=== PATIENT | male | born 1950 | race Caucasian/White ===

== ENCOUNTER 2016-12-25 17:59 | Inpatient (IN) ==
[2016-12-25] MEDS ORDERED: Ipratropium/Albuterol Neb 3 ML IH ONE (18:05)
[2016-12-25] MEDS ORDERED: methylPREDNISolone 125 MG/2 ML VIAL IVP ONE (18:05)
--- NOTE | 2016-12-25 18:09 | Emergency Department Note ---
Disposition Clinical Impression: SOCORRO (acute kidney injury), Hyperkalemia, COPD exacerbation Disposition: Admitted As Inpatient Condition: Fair General Adult HPI - General Chief complaint: ED Altered Mental Status Stated complaint: Altered mental status Time Seen by Provider: 12/25/16 18:05 Source: patient, EMS Limitations: no limitations Nursing Notes Reviewed: Yes Vital Signs Reviewed: Yes - History of Present Illness HPI Narrative: 66-year-old male who has a history COPD his states that he has been confused today which has gotten progressively worse. Patient's states he does have a history of previous CO2 retention. On arrival he does answer questions but is obviously short of breath with a pulse ox of 79 range. Patient is oxygen dependent on 2 L at home. Pt Subjective Complaint: Confusion and shortness of breath Onset (ago): hour(s) (12) Location: other (Generalized) Pain Scale: 10 Quality: aching Consistency: constant Improves with: nothing Worsens with: nothing Associated symptoms: Reports: confusion, shortness of breath - Related Data Home Medications Medication Instructions Recorded Confirmed Albuterol Sulfate [Albuterol 2 mcg IH Q4HR PRN 08/16/15 12/25/16 Inhaler] Aspirin Enteric Coated [Aspirin EC] 81 mg PO DAILY 08/16/15 12/25/16 Atorvastatin [Lipitor] 40 mg PO DAILY 08/16/15 12/25/16 Cinnamon Bark [Cinnamon] 2,000 mg PO DAILY 08/16/15 12/25/16 Cyclosporine [Restasis] 1 each BOTH EYES BID 08/16/15 12/25/16 Fluticasone Propionate Nasal 1 spray NS DAILY 08/16/15 12/25/16 [Flonase] Furosemide [Lasix] 40 mg PO DAILY 08/16/15 12/25/16 Lisinopril [Zestril] 5 mg PO DAILY 08/16/15 12/25/16 Williams-3S/Dha/Epa/Fish Oil [Fish 1 each PO BID 08/16/15 12/25/16 Oil 1,200 mg Softgel] Ipratropium/Albuterol Neb [Duoneb] 3 ml IH Q6HR PRN 04/04/16 12/25/16 Budesonide/Formoterol 160/4.5 2 puff IH BIDR 11/15/16 12/25/16 [Symbicort 160/4.5] Fluticasone/Vilanterol [Breo 1 each IH DAILY 11/15/16 12/25/16 Ellipta 100-25 Mcg INH] Gabapentin [Neurontin] 800 mg PO TID 11/15/16 12/25/16 Metformin HCl [Glucophage] 1,000 mg PO BID 11/15/16 12/25/16 Pregabalin [Lyrica] 75 mg PO BID 11/15/16 12/25/16 Insulin Glargine,Hum.rec.anlog 62 unit SQ BID 12/25/16 12/25/16 [Lantus Solostar] Liraglutide [Victoza 2-Mychal] 1.2 mg SQ DAILY 12/25/16 12/25/16 Metolazone [Zaroxolyn] 5 mg PO DAILY 12/25/16 12/25/16 Allergies Allergy/AdvReac Type Severity Reaction Status Date / Time insulin detemir AdvReac Gastrointestinal Verified 12/25/16 23:03 [From Levemir] Upset sitagliptin [From Januvia] AdvReac Gastrointestinal Verified 12/15/16 10:05 Upset All systems ED: reviewed and negative except as stated. Constitutional: Denies: fever, chills, weakness, weight change Eyes: Denies: eye pain, eye discharge, vision change ENT ED: Denies: ear pain, throat pain, dental pain, hearing loss, epistaxis, congestion, dysphagia Cardiovascular: Denies: chest pain, palpitations, dyspnea on exertion, edema, syncope Respiratory: Reports: dyspnea. Denies: cough, wheezes, hemoptysis, stridor Gastrointestinal: Denies: abdominal pain, nausea, vomiting, diarrhea, constipation, hematemesis, melena, hematochezia Genitourinary: Denies: urgency, dysuria, frequency, hematuria Musculoskeletal: Denies: back pain, neck pain, arthralgia, myalgia Integumentary: Denies: rash, abrasion, lesions Neurological: Reports: confusion. Denies: headache, weakness, numbness, paresthesias, abnormal gait, vertigo Psychiatric: Denies: anxiety, depression, suicidal thoughts, homicidal thoughts , auditory hallucinations, visual hallucinations Endocrine: Denies: fatigue Hematological/Lymphatic: Denies: easy bleeding, easy bruising Allergic/Immunologic: Denies: facial swelling, urticaria Past Medical History - Past Medical History Medical history: Reports: CHF, COPD, diabetes, hyperlipidemia, hypertension, renal disease Surgical history: Reports: cholecystectomy, herniorrhaphy Psychiatric history: Reports: no psych history - Social History Smoking Status: Current every day smoker Smokeless Tobacco Status: No Alcohol use: Reports: none Drug use: Reports: none Physical Exam - General Limitations: no limitations General appearance: alert, in no apparent distress - Head Head exam: atraumatic, normocephalic, normal inspection - Eye Eye exam: Present: normal appearance, PERRL, EOMI - ENT ENT exam: normal exam, normal oropharynx, mucous membranes moist - Neck Neck exam: Present: normal inspection, full ROM, trachea midline - Chest Chest inspection: Present: normal inspection, symmetric chest wall rise - Respiratory Respiratory exam: Present: respiratory distress, wheezes - Cardiovascular Cardiovascular exam: Present: regular rate, normal rhythm, normal heart sounds - Abdominal Exam Abdominal exam: Present: soft, Non-Tender. Absent: tenderness, distention, guarding, rebound, rigidity - Extremities Exam Extremities exam: Present: normal inspection, full ROM. Absent: tenderness, pedal edema - Expanded Lower Extremity Exam Neurovascular/Tendon exam: Absent: motor deficit, sensory deficit, tendon deficit Gait: not tested/not observed - Back Exam Back exam: Present: normal inspection - Neurological Exam Neurological exam: Present: other (Does respond to verbal stimuli) Course Vital Signs Temperature 98.9 F 12/25/16 18:03 Pulse Rate 106 12/25/16 18:03 Respiratory Rate 20 12/25/16 18:03 Blood Pressure 143/83 12/25/16 18:03 O2 Sat by Pulse Oximetry 92 12/25/16 18:03 Temperature 98.2 F 12/27/16 07:34 Pulse Rate 91 12/27/16 08:00 Respiratory Rate 16 12/27/16 07:34 Blood Pressure 138/67 12/27/16 07:34 O2 Sat by Pulse Oximetry 95 12/27/16 07:34 Oxygen Delivery Oxygen Delivery Room Air Medical Decision Making - Lab Data Result diagrams: 12/26/16 04:33 12/27/16 06:18 Lab Results 12/25/16 12/25/16 12/25/16 Range/Units 18:14 18:34 18:34 WBC 8.6 (4.3-11.1) K/mcL RBC 4.88 (4.19-5.50) M/mcL Hgb 14.4 (12.9-16.9) g/dL Hct 45.6 (37.5-50.1) % MCV 93.4 (83.0-100.0) fL MCH 29.5 (28.0-33.3) pg MCHC 31.6 (31.6-35.5) g/dL RDW 15.3 H (11.5-14.5) % Plt Count 225 (140-400) K/mcL MPV 9.0 L (9.4-12.4) fL Immature Gran % 0.9 (0-4) % Seg Neutrophils % 73.6 % Lymphocytes % 14.0 % Monocytes % 11.0 % Eosinophils % 0.2 % Basophils % 0.3 % Neutrophils # 6.3 (1.6-8.9) K/mcL Lymphocytes # 1.2 (0.6-4.6) K/mcL Monocytes # 1.0 (0.0-1.3) K/mcL Eosinophils # 0.0 (0.0-0.6) K/mcL Basophils # 0.0 (0.0-0.2) K/mcL PT (9.4-12.1) Seconds INR APTT (26.0-36.0) Seconds ABG pH 7.25 L (7.32-7.45) pH Units ABG pCO2 60 H (35-45) mmHg ABG pO2 64 L (85-104) mmHg ABG HCO3 26.3 (21-27) mEQ/L ABG Total CO2 28.1 H (20-26) mEq/L ABG O2 Saturation 88 L (95-98) % ABG Base Excess -2.2 L (-2.0 to 3.0) mEq/L Carboxyhemoglobin 6.5 H (0-5) % Blood Gas Modality NC Inspired O2 36 % Sodium 135 L (136-145) mEq/L Potassium 6.4 H (3.5-4.5) mEq/L Chloride 103 (98-109) mEq/L Carbon Dioxide 27 (19-29) mEq/L BUN 31 H (8-26) mg/dL Creatinine 1.45 H (0.72-1.25) mg/dL Est GFR ( Amer) 59 L (> 60) Est GFR (Non-Af Amer) 49 L (> 60) BUN/Creatinine Ratio 21 (6-26) Glucose 89 (70-99) mg/dL POC Glucose (58-89) Calculated Osmolality 286 (280-300) Lactic Acid (0.5-2.2) mmol/L Calcium 10.1 (8.6-10.8) mg/dL Total Bilirubin 0.4 (0.2-1.2) mg/dL Direct Bilirubin 0.2 (0.0-0.5) mg/dL Indirect Bilirubin 0.2 (0.0-1.2) mg/dL AST 25 (5-34) Units/L ALT 20 (0-55) Units/L Alkaline Phosphatase 87 (38-126) Units/L Troponin I (0-0.03) ng/mL B-Natriuretic Peptide (0-100) pg/mL Serum Total Protein 7.4 (6.0-8.3) g/dL Albumin 3.9 (3.5-5.0) g/dL Globulin 3.5 (2.4-3.5) g/dL Albumin/Globulin Ratio 1.1 (1.1-2.2) 12/25/16 12/25/16 12/25/16 Range/Units 18:34 18:34 18:34 WBC (4.3-11.1) K/mcL RBC (4.19-5.50) M/mcL Hgb (12.9-16.9) g/dL Hct (37.5-50.1) % MCV (83.0-100.0) fL MCH (28.0-33.3) pg MCHC (31.6-35.5) g/dL RDW (11.5-14.5) % Plt Count (140-400) K/mcL MPV (9.4-12.4) fL Immature Gran % (0-4) % Seg Neutrophils % % Lymphocytes % % Monocytes % % Eosinophils % % Basophils % % Neutrophils # (1.6-8.9) K/mcL Lymphocytes # (0.6-4.6) K/mcL Monocytes # (0.0-1.3) K/mcL Eosinophils # (0.0-0.6) K/mcL Basophils # (0.0-0.2) K/mcL PT (9.4-12.1) Seconds INR APTT (26.0-36.0) Seconds ABG pH (7.32-7.45) pH Units ABG pCO2 (35-45) mmHg ABG pO2 (85-104) mmHg ABG HCO3 (21-27) mEQ/L ABG Total CO2 (20-26) mEq/L ABG O2 Saturation (95-98) % ABG Base Excess (-2.0 to 3.0) mEq/L Carboxyhemoglobin (0-5) % Blood Gas Modality Inspired O2 % Sodium (136-145) mEq/L Potassium (3.5-4.5) mEq/L Chloride (98-109) mEq/L Carbon Dioxide (19-29) mEq/L BUN (8-26) mg/dL Creatinine (0.72-1.25) mg/dL Est GFR ( Amer) (> 60) Est GFR (Non-Af Amer) (> 60) BUN/Creatinine Ratio (6-26) Glucose (70-99) mg/dL POC Glucose (58-89) Calculated Osmolality (280-300) Lactic Acid 0.8 (0.5-2.2) mmol/L Calcium (8.6-10.8) mg/dL Total Bilirubin (0.2-1.2) mg/dL Direct Bilirubin (0.0-0.5) mg/dL Indirect Bilirubin (0.0-1.2) mg/dL AST (5-34) Units/L ALT (0-55) Units/L Alkaline Phosphatase (38-126) Units/L Troponin I 0.01 (0-0.03) ng/mL B-Natriuretic Peptide 32 (0-100) pg/mL Serum Total Protein (6.0-8.3) g/dL Albumin (3.5-5.0) g/dL Globulin (2.4-3.5) g/dL Albumin/Globulin Ratio (1.1-2.2) 12/25/16 12/25/16 12/25/16 Range/Units 18:34 21:55 22:51 WBC (4.3-11.1) K/mcL RBC (4.19-5.50) M/mcL Hgb (12.9-16.9) g/dL Hct (37.5-50.1) % MCV (83.0-100.0) fL MCH (28.0-33.3) pg MCHC (31.6-35.5) g/dL RDW (11.5-14.5) % Plt Count (140-400) K/mcL MPV (9.4-12.4) fL Immature Gran % (0-4) % Seg Neutrophils % % Lymphocytes % % Monocytes % % Eosinophils % % Basophils % % Neutrophils # (1.6-8.9) K/mcL Lymphocytes # (0.6-4.6) K/mcL Monocytes # (0.0-1.3) K/mcL Eosinophils # (0.0-0.6) K/mcL Basophils # (0.0-0.2) K/mcL PT 11.4 (9.4-12.1) Seconds INR 1.1 APTT 43.4 H (26.0-36.0) Seconds ABG pH 7.26 L (7.32-7.45) pH Units ABG pCO2 64 H (35-45) mmHg ABG pO2 57 L (85-104) mmHg ABG HCO3 28.7 H (21-27) mEQ/L ABG Total CO2 30.7 H (20-26) mEq/L ABG O2 Saturation 84 L (95-98) % ABG Base Excess -0.3 (-2.0 to 3.0) mEq/L Carboxyhemoglobin (0-5) % Blood Gas Modality BIPAP Inspired O2 35 % Sodium (136-145) mEq/L Potassium (3.5-4.5) mEq/L Chloride (98-109) mEq/L Carbon Dioxide (19-29) mEq/L BUN (8-26) mg/dL Creatinine (0.72-1.25) mg/dL Est GFR ( Amer) (> 60) Est GFR (Non-Af Amer) (> 60) BUN/Creatinine Ratio (6-26) Glucose (70-99) mg/dL POC Glucose 125 H (58-89) Calculated Osmolality (280-300) Lactic Acid (0.5-2.2) mmol/L Calcium (8.6-10.8) mg/dL Total Bilirubin (0.2-1.2) mg/dL Direct Bilirubin (0.0-0.5) mg/dL Indirect Bilirubin (0.0-1.2) mg/dL AST (5-34) Units/L ALT (0-55) Units/L Alkaline Phosphatase (38-126) Units/L Troponin I (0-0.03) ng/mL B-Natriuretic Peptide (0-100) pg/mL Serum Total Protein (6.0-8.3) g/dL Albumin (3.5-5.0) g/dL Globulin (2.4-3.5) g/dL Albumin/Globulin Ratio (1.1-2.2) 12/25/16 12/26/16 Range/Units 23:47 00:46 WBC (4.3-11.1) K/mcL RBC (4.19-5.50) M/mcL Hgb (12.9-16.9) g/dL Hct (37.5-50.1) % MCV (83.0-100.0) fL MCH (28.0-33.3) pg MCHC (31.6-35.5) g/dL RDW (11.5-14.5) % Plt Count (140-400) K/mcL MPV (9.4-12.4) fL Immature Gran % (0-4) % Seg Neutrophils % % Lymphocytes % % Monocytes % % Eosinophils % % Basophils % % Neutrophils # (1.6-8.9) K/mcL Lymphocytes # (0.6-4.6) K/mcL Monocytes # (0.0-1.3) K/mcL Eosinophils # (0.0-0.6) K/mcL Basophils # (0.0-0.2) K/mcL PT (9.4-12.1) Seconds INR APTT (26.0-36.0) Seconds ABG pH (7.32-7.45) pH Units ABG pCO2 (35-45) mmHg ABG pO2 (85-104) mmHg ABG HCO3 (21-27) mEQ/L ABG Total CO2 (20-26) mEq/L ABG O2 Saturation (95-98) % ABG Base Excess (-2.0 to 3.0) mEq/L Carboxyhemoglobin (0-5) % Blood Gas Modality Inspired O2 % Sodium 137 (136-145) mEq/L Potassium 6.0 H (3.5-4.5) mEq/L Chloride 104 (98-109) mEq/L Carbon Dioxide 24 (19-29) mEq/L BUN 32 H (8-26) mg/dL Creatinine 1.40 H (0.72-1.25) mg/dL Est GFR ( Amer) > 60 (> 60) Est GFR (Non-Af Amer) 51 L (> 60) BUN/Creatinine Ratio 23 (6-26) Glucose 170 H (70-99) mg/dL POC Glucose 203 H (58-89) Calculated Osmolality 295 (280-300) Lactic Acid (0.5-2.2) mmol/L Calcium 9.7 (8.6-10.8) mg/dL Total Bilirubin (0.2-1.2) mg/dL Direct Bilirubin (0.0-0.5) mg/dL Indirect Bilirubin (0.0-1.2) mg/dL AST (5-34) Units/L ALT (0-55) Units/L Alkaline Phosphatase (38-126) Units/L Troponin I (0-0.03) ng/mL B-Natriuretic Peptide (0-100) pg/mL Serum Total Protein (6.0-8.3) g/dL Albumin (3.5-5.0) g/dL Globulin (2.4-3.5) g/dL Albumin/Globulin Ratio (1.1-2.2) - EKG Data EKG #1 EKG shows normal: sinus rhythm Rate: normal Rhythm: NSR Interpretation: no acute changes
[2016-12-25 18:27] LABS: ABG Base Excess -2.2 mEq/L (-2.0 to 3.0); ABG HCO3 26.3 mEQ/L (21-27); ABG Oxygen Saturation 88 % (95-98); ABG PCO2 60 mmHg (35-45); ABG PH 7.25 pH Units (7.32-7.45); ABG PO2 64 mmHg (85-104); ABG TCO2 28.1 mEq/L (20-26); Carboxyhemoglobin 6.5 % (0-5)
[2016-12-25 18:28] LABS: Blood Gas FiO2 36 %
[2016-12-25 18:43] LABS: Basophils % 0.3 %; Eosinophils % 0.2 %; Hematocrit 45.6 % (37.5-50.1); Hemoglobin 14.4 g/dL (12.9-16.9); Immature Granulocytes % 0.9 % (0-4); Lymphocytes # 1.2 K/mcL (0.6-4.6); Mean Corpuscular HGB Conc 31.6 g/dL (31.6-35.5); Mean Corpuscular Hemoglobin 29.5 pg (28.0-33.3); Mean Corpuscular Volume 93.4 fL (83.0-100.0); Neutrophils # 6.3 K/mcL (1.6-8.9); Platelet Count 225 K/mcL (140-400); Red Blood Count 4.88 M/mcL (4.19-5.50); Red Cell Distribution Width 15.3 % (11.5-14.5); Segmented Neutrophils % 73.6 %
[2016-12-25 18:50] LABS: INR 1.1; Prothrombin Time 11.4 Seconds (9.4-12.1)
[2016-12-25 18:53] LABS: Activated Partial Thrombo Time 43.4 Seconds (26.0-36.0)
[2016-12-25 18:58] LABS: Potassium 6.4 mEq/L (3.5-4.5)
[2016-12-25 18:59] LABS: Albumin 3.9 g/dL (3.5-5.0); Albumin/Globulin Ratio 1.1 (1.1-2.2); Bilirubin,Direct 0.2 mg/dL (0.0-0.5); Bilirubin,Indirect 0.2 mg/dL (0.0-1.2); Bilirubin,Total 0.4 mg/dL (0.2-1.2); Calcium 10.1 mg/dL (8.6-10.8); Globulin 3.5 g/dL (2.4-3.5); Total Protein 7.4 g/dL (6.0-8.3)
[2016-12-25] MEDS ORDERED: Calcium Gluconate 1,000 MG in D5% in Water 100 ML IVPB ONE (19:12)
--- NOTE | 2016-12-25 20:32 | Emergency Department Note ---
Disposition Clinical Impression: SOCORRO (acute kidney injury), Hyperkalemia, COPD exacerbation Disposition: Admitted As Inpatient Condition: Fair Time of Disposition: 20:47 Altered Mental Status HPI - General Chief Complaint: ED Altered Mental Status Stated Complaint: Altered mental status Time Seen by Provider: 12/25/16 18:05 Source: patient, EMS Limitations: no limitations Nursing Notes Reviewed: Yes Vital Signs Reviewed: Yes - Related Data Home Medications Medication Instructions Recorded Confirmed Albuterol Sulfate [Albuterol 2 mcg IH Q4HR PRN 08/16/15 12/25/16 Inhaler] Aspirin Enteric Coated [Aspirin EC] 81 mg PO DAILY 08/16/15 12/25/16 Atorvastatin [Lipitor] 40 mg PO DAILY 08/16/15 12/25/16 Cinnamon Bark [Cinnamon] 2,000 mg PO DAILY 08/16/15 12/25/16 Cyclosporine [Restasis] 1 each BOTH EYES BID 08/16/15 12/25/16 Fluticasone Propionate Nasal 1 spray NS DAILY 08/16/15 12/25/16 [Flonase] Furosemide [Lasix] 40 mg PO DAILY 08/16/15 12/25/16 Lisinopril [Zestril] 5 mg PO DAILY 08/16/15 12/25/16 [place]-3S/Dha/Epa/Fish Oil [Fish 1 each PO BID 08/16/15 12/25/16 Oil 1,200 mg Softgel] Ipratropium/Albuterol Neb [Duoneb] 3 ml IH Q6HR PRN 04/04/16 12/25/16 Budesonide/Formoterol 160/4.5 2 puff IH BIDR 11/15/16 12/25/16 [Symbicort 160/4.5] Fluticasone/Vilanterol [Breo 1 each IH DAILY 11/15/16 12/25/16 Ellipta 100-25 Mcg INH] Gabapentin [Neurontin] 800 mg PO TID 11/15/16 12/25/16 Metformin HCl [Glucophage] 1,000 mg PO BID 11/15/16 12/25/16 Pregabalin [Lyrica] 75 mg PO BID 11/15/16 12/25/16 Insulin Glargine,Hum.rec.anlog 62 unit SQ BID 12/25/16 12/25/16 [Lantus Solostar] Liraglutide [Victoza 2-Mychal] 1.2 mg SQ DAILY 12/25/16 12/25/16 Metolazone [Zaroxolyn] 5 mg PO DAILY 12/25/16 12/25/16 Allergies Allergy/AdvReac Type Severity Reaction Status Date / Time sitagliptin [From ] AdvReac Gastrointestinal Verified 12/15/16 10:05 Upset Constitutional: Denies: fever, chills, weakness, weight change Eyes: Denies: eye pain, eye discharge, vision change ENT ED: Denies: ear pain, throat pain, dental pain, hearing loss, epistaxis, congestion, dysphagia Cardiovascular: Denies: chest pain, palpitations, dyspnea on exertion, edema, syncope Respiratory: Reports: dyspnea. Denies: cough, wheezes, hemoptysis, stridor Gastrointestinal: Denies: abdominal pain, nausea, vomiting, diarrhea, constipation, hematemesis, melena, hematochezia Genitourinary: Denies: urgency, dysuria, frequency, hematuria Musculoskeletal: Denies: back pain, neck pain, arthralgia, myalgia Integumentary: Denies: rash, abrasion, lesions Neurological: Reports: confusion. Denies: headache, weakness, numbness, paresthesias, abnormal gait, vertigo Psychiatric: Denies: anxiety, depression, suicidal thoughts, homicidal thoughts , auditory hallucinations, visual hallucinations Endocrine: Denies: fatigue Hematological/Lymphatic: Denies: easy bleeding, easy bruising Allergic/Immunologic: Denies: facial swelling, urticaria Past Medical History - Past Medical History Medical history: Reports: CHF, COPD, diabetes, hyperlipidemia, hypertension, renal disease Surgical history: Reports: cholecystectomy, herniorrhaphy Psychiatric history: Reports: no psych history - Social History Smoking Status: Current every day smoker Smokeless Tobacco Status: No Alcohol use: Reports: none Drug use: Reports: none Physical Exam - General Limitations: no limitations General appearance: alert, in no apparent distress Course Course Narrative: Patient is a signout from the day physician, Dr. Richey. Please see his note for any additional details. In summary, patient has a past medical history of COPD. He has had 2 elevations in the past. He presented today due to shortness of breath and wheezing, hypoxic on presentation. Patient had a workup that showed hyperkalemia and SOCORRO. Negative chest x-ray, negative trop, EKG showed NSR no acute ST elevations or depressions. Patient had an ABG that showed a pH of 7.25, CO2 of 60. He was placed on BiPAP for shortness of breath, given Solu-Medrol and duonebs. He is still symptomatically short of breath. Patient will be admitted to the hospital for COPD exacerbation requiring BiPAP, hyperkalemia (given calcium gluconate and kayexalate), and SOCORRO. states that he is still full code, would want him intubated and CPR if he were to decompensate. Vital Signs Temperature 98.9 F 12/25/16 18:03 Pulse Rate 106 12/25/16 18:03 Respiratory Rate 20 12/25/16 18:03 Blood Pressure 143/83 12/25/16 18:03 O2 Sat by Pulse Oximetry 92 12/25/16 18:03 Temperature 98.9 F 12/25/16 18:03 Pulse Rate 95 12/25/16 20:35 Respiratory Rate 23 12/25/16 20:35 Blood Pressure 156/69 12/25/16 20:35 O2 Sat by Pulse Oximetry 92 12/25/16 20:35 Oxygen Delivery Oxygen Delivery Bipap Altered Mental Status - MDM Narrative Medical decision making narrative: Patient is a signout from the day physician, Dr. Richey. Please see his note for any additional details. In summary, patient has a past medical history of COPD. He has had 2 elevations in the past. He presented today due to shortness of breath and wheezing, hypoxic on presentation. Patient had a workup that showed hyperkalemia and SOCORRO. Negative chest x-ray, negative trop, EKG showed NSR no acute ST elevations or depressions. Patient had an ABG that showed a pH of 7.25, CO2 of 60. He was placed on BiPAP for shortness of breath, given Solu-Medrol and duonebs. He is still symptomatically short of breath. Patient will be admitted to the hospital for COPD exacerbation requiring BiPAP, hyperkalemia (given calcium gluconate and kayexalate), and SOCORRO. states that he is still full code, would want him intubated and CPR if he were to decompensate. - Medical Records Medical records reviewed: Yes I reviewed the patient's medical records. - Lab Data Lab results reviewed: Yes I reviewed the patient's lab results. Result diagrams: 12/25/16 18:34 12/25/16 18:34 Lab Results 12/25/16 12/25/16 12/25/16 Range/Units 18:14 18:34 18:34 WBC 8.6 (4.3-11.1) K/mcL RBC 4.88 (4.19-5.50) M/mcL Hgb 14.4 (12.9-16.9) g/dL Hct 45.6 (37.5-50.1) % MCV 93.4 (83.0-100.0) fL MCH 29.5 (28.0-33.3) pg MCHC 31.6 (31.6-35.5) g/dL RDW 15.3 H (11.5-14.5) % Plt Count 225 (140-400) K/mcL MPV 9.0 L (9.4-12.4) fL Immature Gran % 0.9 (0-4) % Seg Neutrophils % 73.6 % Lymphocytes % 14.0 % Monocytes % 11.0 % Eosinophils % 0.2 % Basophils % 0.3 % Neutrophils # 6.3 (1.6-8.9) K/mcL Lymphocytes # 1.2 (0.6-4.6) K/mcL Monocytes # 1.0 (0.0-1.3) K/mcL Eosinophils # 0.0 (0.0-0.6) K/mcL Basophils # 0.0 (0.0-0.2) K/mcL PT (9.4-12.1) Seconds INR APTT (26.0-36.0) Seconds ABG pH 7.25 L (7.32-7.45) pH Units ABG pCO2 60 H (35-45) mmHg ABG pO2 64 L (85-104) mmHg ABG HCO3 26.3 (21-27) mEQ/L ABG Total CO2 28.1 H (20-26) mEq/L ABG O2 Saturation 88 L (95-98) % ABG Base Excess -2.2 L (-2.0 to 3.0) mEq/L Carboxyhemoglobin 6.5 H (0-5) % Blood Gas Modality [place] Inspired O2 36 % Sodium 135 L (136-145) mEq/L Potassium 6.4 H (3.5-4.5) mEq/L Chloride 103 (98-109) mEq/L Carbon Dioxide 27 (19-29) mEq/L BUN 31 H (8-26) mg/dL Creatinine 1.45 H (0.72-1.25) mg/dL Est GFR ( Amer) 59 L (> 60) Est GFR (Non-Af Amer) 49 L (> 60) BUN/Creatinine Ratio 21 (6-26) Glucose 89 (70-99) mg/dL Calculated Osmolality 286 (280-300) Lactic Acid (0.5-2.2) mmol/L Calcium 10.1 (8.6-10.8) mg/dL Total Bilirubin 0.4 (0.2-1.2) mg/dL Direct Bilirubin 0.2 (0.0-0.5) mg/dL Indirect Bilirubin 0.2 (0.0-1.2) mg/dL AST 25 (5-34) Units/L ALT 20 (0-55) Units/L Alkaline Phosphatase 87 (38-126) Units/L Troponin I (0-0.03) ng/mL B-Natriuretic Peptide (0-100) pg/mL Serum Total Protein 7.4 (6.0-8.3) g/dL Albumin 3.9 (3.5-5.0) g/dL Globulin 3.5 (2.4-3.5) g/dL Albumin/Globulin Ratio 1.1 (1.1-2.2) 12/25/16 12/25/16 12/25/16 Range/Units 18:34 18:34 18:34 WBC (4.3-11.1) K/mcL RBC (4.19-5.50) M/mcL Hgb (12.9-16.9) g/dL Hct (37.5-50.1) % MCV (83.0-100.0) fL MCH (28.0-33.3) pg MCHC (31.6-35.5) g/dL RDW (11.5-14.5) % Plt Count (140-400) K/mcL MPV (9.4-12.4) fL Immature Gran % (0-4) % Seg Neutrophils % % Lymphocytes % % Monocytes % % Eosinophils % % Basophils % % Neutrophils # (1.6-8.9) K/mcL Lymphocytes # (0.6-4.6) K/mcL Monocytes # (0.0-1.3) K/mcL Eosinophils # (0.0-0.6) K/mcL Basophils # (0.0-0.2) K/mcL PT (9.4-12.1) Seconds INR APTT (26.0-36.0) Seconds ABG pH (7.32-7.45) pH Units ABG pCO2 (35-45) mmHg ABG pO2 (85-104) mmHg ABG HCO3 (21-27) mEQ/L ABG Total CO2 (20-26) mEq/L ABG O2 Saturation (95-98) % ABG Base Excess (-2.0 to 3.0) mEq/L Carboxyhemoglobin (0-5) % Blood Gas Modality Inspired O2 % Sodium (136-145) mEq/L Potassium (3.5-4.5) mEq/L Chloride (98-109) mEq/L Carbon Dioxide (19-29) mEq/L BUN (8-26) mg/dL Creatinine (0.72-1.25) mg/dL Est GFR ( Amer) (> 60) Est GFR (Non-Af Amer) (> 60) BUN/Creatinine Ratio (6-26) Glucose (70-99) mg/dL Calculated Osmolality (280-300) Lactic Acid 0.8 (0.5-2.2) mmol/L Calcium (8.6-10.8) mg/dL Total Bilirubin (0.2-1.2) mg/dL Direct Bilirubin (0.0-0.5) mg/dL Indirect Bilirubin (0.0-1.2) mg/dL AST (5-34) Units/L ALT (0-55) Units/L Alkaline Phosphatase (38-126) Units/L Troponin I 0.01 (0-0.03) ng/mL B-Natriuretic Peptide 32 (0-100) pg/mL Serum Total Protein (6.0-8.3) g/dL Albumin (3.5-5.0) g/dL Globulin (2.4-3.5) g/dL Albumin/Globulin Ratio (1.1-2.2) 12/25/16 Range/Units 18:34 WBC (4.3-11.1) K/mcL RBC (4.19-5.50) M/mcL Hgb (12.9-16.9) g/dL Hct (37.5-50.1) % MCV (83.0-100.0) fL MCH (28.0-33.3) pg MCHC (31.6-35.5) g/dL RDW (11.5-14.5) % Plt Count (140-400) K/mcL MPV (9.4-12.4) fL Immature Gran % (0-4) % Seg Neutrophils % % Lymphocytes % % Monocytes % % Eosinophils % % Basophils % % Neutrophils # (1.6-8.9) K/mcL Lymphocytes # (0.6-4.6) K/mcL Monocytes # (0.0-1.3) K/mcL Eosinophils # (0.0-0.6) K/mcL Basophils # (0.0-0.2) K/mcL PT 11.4 (9.4-12.1) Seconds INR 1.1 APTT 43.4 H (26.0-36.0) Seconds ABG pH (7.32-7.45) pH Units ABG pCO2 (35-45) mmHg ABG pO2 (85-104) mmHg ABG HCO3 (21-27) mEQ/L ABG Total CO2 (20-26) mEq/L ABG O2 Saturation (95-98) % ABG Base Excess (-2.0 to 3.0) mEq/L Carboxyhemoglobin (0-5) % Blood Gas Modality Inspired O2 % Sodium (136-145) mEq/L Potassium (3.5-4.5) mEq/L Chloride (98-109) mEq/L Carbon Dioxide (19-29) mEq/L BUN (8-26) mg/dL Creatinine (0.72-1.25) mg/dL Est GFR ( Amer) (> 60) Est GFR (Non-Af Amer) (> 60) BUN/Creatinine Ratio (6-26) Glucose (70-99) mg/dL Calculated Osmolality (280-300) Lactic Acid (0.5-2.2) mmol/L Calcium (8.6-10.8) mg/dL Total Bilirubin (0.2-1.2) mg/dL Direct Bilirubin (0.0-0.5) mg/dL Indirect Bilirubin (0.0-1.2) mg/dL AST (5-34) Units/L ALT (0-55) Units/L Alkaline Phosphatase (38-126) Units/L Troponin I (0-0.03) ng/mL B-Natriuretic Peptide (0-100) pg/mL Serum Total Protein (6.0-8.3) g/dL Albumin (3.5-5.0) g/dL Globulin (2.4-3.5) g/dL Albumin/Globulin Ratio (1.1-2.2) - Radiology Data Radiology results reviewed: Yes I reviewed the patient's radiology results. Chest X-Ray 12/25/16 18:05 IMPRESSION: No acute process on slightly limited exam. D/ / Rehana Lopez MD / Rehana Lopez MD Interpreting Provider: Rehana Lopez MD - EKG Data EKG attestation: Yes I reviewed and interpreted this EKG. EKG results narrative: Repeat EKG 12/25/2016 at 19:30. Normal sinus rhythm. Low voltage. Rate 89. CO 168. QRS 107. QTC 370. Normal axis. No acute ST elevation or depression compared to previous EKG on 02/26/2014 S.B.A.R. - S.B.A.R. Situation: Demographics, MOA Background: Presenting Complaint, Relevant PMH, Meds, & Allergies Assessment: Vital Signs, Course and respsone to treatment, Exam Concerns, Patient/Family Expectation, Pertinant Lab Results, Outstanding Labs Recommendation: Barrier(s) to disposition, Recommendation based on pending studies, treatments, or consults S.B.A.RCarley Report Given to: Dr. Rosenberg SCarleyBCarleyAJunior Repor Time: 20:47 Attestation Statement - Attestation Attestation: I personally interviewed and examined this patient and my medical decision- making was reviewed with the ED Resident Physician, Dr. Saldivar. I agree with the documented findings, disposition and treatment plan as described except to the extent set forth below. Patient is a 66-year-old white male with a history of COPD who presented to the emergency department initially prior to my arrival and was initially evaluated and managed by Dr. Richey for COPD exacerbation. On my assessment patient has been on BiPAP has had an ABG performed chest x-ray is pending and at this time it was reported that his good mental status and improved on the BiPAP. My assessment patient is awake alert and oriented 4, complaining of ongoing shortness of breath but on BiPAP his O2 sats are 96%. The patient's reports that he has been intubated twice in the past for exacerbations of his COPD. Patient is on BiPAP at night and supplemental O2 depending on how short of breath he feels at home. Patient is currently not on any steroids or antibiotics at this time the report that he has had worsening cough and upper respiratory symptoms over the past 48 hours, cough became productive, and he became more short of breath today. Patient with end expiratory wheezing throughout bilaterally with tachypnea and conversational dyspnea. Patient denies any chest pain or pressure sensation. Chest x-ray was clear no evidence of consolidation or pulmonary edema. At this time we will start him on Levaquin IV, he is already received steroids and breathing treatments. He will be admitted for further evaluation and management of his COPD exacerbation. She remains hemodynamically stable at this time.
[2016-12-25] MEDS ORDERED: Levofloxacin 750 MG/150 ML 750 MG/150 ML BAG IVPB ONE (20:36)
[2016-12-25] MEDS ORDERED: Naloxone 0.4 MG/ML INJ IVP PRN (21:44)
[2016-12-25] MEDS ORDERED: *HR* Dextrose 50 % in Water (Syg) 50 ML SYRINGE IVP PRN (22:22)
[2016-12-25] MEDS ORDERED: Dextrose Gel 15 GM PO PRN ×2 (22:22)
[2016-12-25] MEDS ORDERED: D5% in Water 1,000 ML IVC PRN (22:22)
[2016-12-25] MEDS: Budesonide/Formoterol 160/4.5 MDI IH SCH (22:23)
[2016-12-25] MEDS ORDERED: Albuterol 2.5 MG/3 ML NEBULIZER IH PRN (22:24)
--- NOTE | 2016-12-25 22:35 | Internal Med History&Physical ---
<Harleen Baum - Last Filed: 12/25/16 23:10> Date of Encounter: 12/25/16 Time of Encounter: 22:30 Assessment and Plan (1) [id number] respiratory failure Current visit: Yes Status: Acute 1 patient has past history of COPD as well as obstructive sleep apnea uses BiPAP at night continues to smoke 1 pack a day. Patient will continue experience increased cough with sputum production overnight. This a.m. patient confused confusion worsened throughout the day of presentation ABG revealed pH 7.25 PCO2 60-64 bicarbonate 26 O2 sat 80%. Patient placed on BiPAP oxygen saturation is 95%. We will continue to titrate maintaining SaO2 greater than 92 % 2. Continue bronchodilators 3 continous spo2 monitoring 4 recheck ABG 5 obtain influenza swab Qualifiers: Respiratory failure complication: hypoxia and hypercapnia Qualified Code(s) : J96.21 - Acute and chronic respiratory failure with hypoxia; J96.22 - Acute and chronic respiratory failure with hypercapnia (2) SOCORRO (acute kidney injury) Current visit: Yes Status: Acute 1 creatinine is 1.4, his baseline is around 1. Patient is on metformin as well as Ashish diuretics. We will hold these medications for now 2 . Fluid bolus 500 mg continuous infusion at 75 3 monitor intake and output daily weights 4 avoid nephrotoxins (3) COPD exacerbation Current visit: Yes Status: Acute 1 continue with oxygen titrated to maintain his sutures are 92% 2 continue bronchodilators 3 continue with steroid with taper 4 continue with Levaquin (4) DM (diabetes mellitus), type 2 Current visit: Yes Status: Chronic 1 patient's presently nothing by mouth due to being on BiPAP. Accu-Cheks every 6 hours with moderate sliding scale insulin coverage. Suspect patient's blood sugars will be elevated due to steroid use 2 patient is presently nothing by mouth Accu-Cheks every 6 hours Qualifiers: Diabetes mellitus complication status: with unspecified complications Diabetes mellitus terminal worker insulin use: with terminal worker use Qualified Code(s) : E11.8 - Type 2 diabetes mellitus with unspecified complications; Z79.4 - custodial (current) use of insulin (5) DVT prophylaxis Current visit: Yes Status: Acute 1 lovenox (6) Hypertension Current visit: Yes Status: Acute 1 presently controlled we will hold ASHISH inhibitor and diuretics for now dt SOCORRO recsume once back to baseline Qualifiers: Hypertension type: essential hypertension Qualified Code(s): I10 - Essential (primary) hypertension (7) History of chronic CHF Current visit: No Status: Acute Has history of CHF EF was 55% with mild diastolic dysfunction on . Presently we will hold diuretics due to acute kidney injury-we will resume once back to baseline 2 monitor intake and output 3 daily weights Internal Medicine - H&P: HPI Chief complaint: altered mental status Admitted From: Emergency Dept Plans for Post Hospital Care: Home History of present illness: Mr. Sutherland is a 66 year old male past history of CHF COPD BARTOLO diabetes type 2 hyperlipidemia hypertension coronary artery disease tobacco abuse. According to patient was in his usual state of health he has been exposed to upper respiratory infection last night he began to experience a cough with green sputum as well as subjective fevers. This a.m. he awoke and was mildly confused as to the progress patient became more confused and agitated. Patient brought into the ER for evaluation. According to ER records patient's ABG was pH 7.25 PCO2 60 PaO2 64 bicarbonate 26 O2 sat 88%. He had no leukocytosis lactate was 0.8 troponin 0.01 A&P 30 to potassium was 6.4 creatinine was 1.45 BUN 31 GFR was 49. Chest x-ray did not reveal any acute process. Blood cultures were obtained patient was given duo nebs as well as Solu-Medrol and Levaquin. He was given calcium gluconate and Kayexalate EKG with no peak T waves noted. Patient continued to be confused placed on BiPAP and has been admitted for further work up evaluation. Presently patient continues to be confused he arouses to verbal stimuli he is oriented to self only he is slow to follow commands. He does have a moist nonproductive cough sounds are clear diminished in the bases bilaterally heart sounds regular S1-S2 . He is on BiPAP Oxygen Saturation 95% at This Time. I reveiwed this case with Dr Rosenberg who agrees with plan Past Med Surg Social Fam HX - Past Medical History Medical history: CHF, COPD, diabetes, hyperlipidemia, hypertension, renal disease Psychiatric history: no psych history - Past Surgical History Surgical History: cholecystectomy, herniorrhaphy - Social History Smoking Status: Current every day smoker Packs per day: 1 Smokeless Tobacco Status: No Alcohol use: none Drug use: none - Family History Mother Living Status: Age at : 88 Hx Family Cardiac Disorders: Yes Father Living Status: Age at : 75 Hx Family Cancer: Yes (lung) Internal Medicine - H&P: Meds Albuterol Sulfate [Albuterol Inhaler] 2 mcg IH Q4HR PRN 08/16/15 [History] Aspirin Enteric Coated [Aspirin EC] 81 mg PO DAILY 08/16/15 [History] Atorvastatin [Lipitor] 40 mg PO DAILY 08/16/15 [History] Cinnamon Bark [Cinnamon] 2,000 mg PO DAILY 08/16/15 [History] Cyclosporine [Restasis] 1 each BOTH EYES BID 08/16/15 [History] Fluticasone Propionate Nasal [Flonase] 1 spray NS DAILY 08/16/15 [History] Furosemide [Lasix] 40 mg PO DAILY 08/16/15 [History] Lisinopril [Zestril] 5 mg PO DAILY 08/16/15 [History] [place]-3S/Dha/Epa/Fish Oil [Fish Oil 1,200 mg Softgel] 1 each PO BID 08/16/15 [ History] Ipratropium/Albuterol Neb [Duoneb] 3 ml IH Q6HR PRN 04/04/16 [History] Budesonide/Formoterol 160/4.5 [Symbicort 160/4.5] 2 puff IH BIDR 11/15/16 [ History] Fluticasone/Vilanterol [Breo Ellipta 100-25 Mcg INH] 1 each IH DAILY 11/15/16 [ History] Gabapentin [Neurontin] 800 mg PO TID 11/15/16 [History] Metformin HCl [Glucophage] 1,000 mg PO BID 11/15/16 [History] Pregabalin [Lyrica] 75 mg PO BID 11/15/16 [History] Insulin Glargine,Hum.rec.anlog [Lantus Solostar] 62 unit SQ BID 12/25/16 [ History] Liraglutide [Victoza 2-Mychal] 1.2 mg SQ DAILY 12/25/16 [History] Metolazone [Zaroxolyn] 5 mg PO DAILY 12/25/16 [History] Allergies insulin detemir [From Levemir] Adverse Reaction (Verified 12/25/16 23:03) Gastrointestinal Upset sitagliptin [From Januvia] Adverse Reaction (Verified 12/15/16 10:05) Gastrointestinal Upset ROS unobtainable: due to mental status All Systems PM: A 10-system review of systems was performed and is negative for pertinent findings except as documented above in the HPI. - Constitutional Vitals: Temp Pulse Resp BP Pulse Ox 98.9 F 93 26 165/68 93 12/25/16 18:03 12/25/16 22:13 12/25/16 22:23 12/25/16 22:23 12/25/16 22:23 General appearance: Present: A&O X 2 - Respiratory Respiratory exam: Present: decreased breath sounds, CTAB. Absent: accessory muscle use, rales, rhonchi, wheezes - Cardiovascular Cardiovascular exam: Present: RRR, +S1, +S2. Absent: diastolic murmur, gallop, rubs, systolic murmur - GI/Abdominal GI/Abdominal exam: Present: normal bowel sounds, soft, no peritoneal signs. Absent: distended, tenderness - Extremities Exam Extremities exam: Present: warm, radial pulses palpable and symetrical. Absent : calf tenderness, cyanotic, pedal edema - Skin Skin exam: Present: dry, intact Internal Med - H&P Results - Labs CBC & Chem 7: 12/25/16 18:34 12/25/16 18:34 - ABG Interpretation Interpretation: respiratory acidosis - EKG Data EKG shows normal: sinus rhythm - EKG Data Prior EKG available for review: yes When compared to previous EKG: there is no significant change - Diagnostic Studies Other Images Additional comments: Chest X-Ray 12/25/16 18:05 IMPRESSION: No acute process on slightly limited exam. D/ / Rehana Lopez MD / Rehana Lopez MD Interpreting Provider: Rehana Lopez MD <Edu Rosenberg - Last Filed: 12/26/16 01:14> Date of Encounter: 12/25/16 Internal Medicine - H&P: HPI History of present illness: Mr. Sutherland is a 66 year old male All Systems PM: A 10-system review of systems was performed and is negative for pertinent findings except as documented above in the HPI. - Constitutional Vitals: Temp Pulse Resp BP Pulse Ox 98.1 F 102 18 157/69 91 12/25/16 23:45 12/25/16 23:45 12/25/16 23:45 12/25/16 23:45 12/25/16 23:45 Internal Med - H&P Results - Labs CBC & Chem 7: 12/25/16 18:34 12/25/16 18:34 - ABG Interpretation ABG results: 12/25/16 22:51 ABG pH 7.26 L ABG pCO2 64 H ABG pO2 57 L ABG HCO3 28.7 H ABG Total CO2 30.7 H ABG O2 Saturation 84 L ABG Base Excess -0.3 - Attending Attestation I performed history and physical examination of the patient and discussed management with INSPECTION MANAGER/ANP. I reviewed the INSPECTION MANAGER/ANPs note and agree with the documented findings and plan of care. 66 year old male past history of CHF, COPD, BARTOLO on BiPAP, CAD, DM2 - presents with confusion. O/E: On BiPAP; somnolent. Bilateral expiratory wheeze present. Cardiac regular rhythm. EKG: SR, QTC: 365 ms. CXR: No acute process reported. ABG: PH: 7.25; PCO2: 60. A/P: COPD exacerbation/acute on chronic respiratory failure: Treat with levofloxacin, Solu-Medrol, bronchodilators, Mucinex; BiPAP therapy.
[2016-12-25] MEDS: Ipratropium/Albuterol Neb 3 ML IH SCH (22:38)
[2016-12-25] MEDS ORDERED: 0.9 % Sodium Chloride 500 ML IVC ONE (22:44)
[2016-12-25] MEDS ORDERED: 0.9 % Sodium Chloride 1,000 ML IVC SCH (23:00)
[2016-12-25 23:05] LABS: ABG Base Excess -0.3 mEq/L (-2.0 to 3.0); ABG HCO3 28.7 mEQ/L (21-27); ABG Oxygen Saturation 84 % (95-98); ABG PCO2 64 mmHg (35-45); ABG PH 7.26 pH Units (7.32-7.45); ABG PO2 57 mmHg (85-104); ABG TCO2 30.7 mEq/L (20-26)
[2016-12-25 23:06] LABS: Blood Gas FiO2 35 %
[2016-12-25] MEDS: methylPREDNISolone 125 MG/2 ML VIAL IM SCH (23:45)
[2016-12-26 01:48] LABS: BUN/Creatinine Ratio 23 (6-26); Blood Urea Nitrogen 32 mg/dL (8-26); Calcium 9.7 mg/dL (8.6-10.8); Carbon Dioxide 24 mEq/L (19-29); Chloride 104 mEq/L (98-109); Glucose 170 mg/dL (70-99); Osmolality,Calculated 295 (280-300); Sodium 137 mEq/L (136-145); eGFR For African Americans > 60 (> 60); eGFR For Non-African Americans 51 (> 60)
[2016-12-26 02:54] LABS: ABG Base Excess -0.7 mEq/L (-2.0 to 3.0); ABG HCO3 27.6 mEQ/L (21-27); ABG Oxygen Saturation 86 % (95-98); ABG PCO2 60 mmHg (35-45); ABG PH 7.27 pH Units (7.32-7.45); ABG PO2 59 mmHg (85-104); ABG TCO2 29.4 mEq/L (20-26)
[2016-12-26 02:55] LABS: Blood Gas FiO2 36 %
[2016-12-26] MEDS ORDERED: Calcium Gluconate 1,000 MG in D5% in Water 100 ML IVPB ONE (03:20)
[2016-12-26] MEDS: Ipratropium/Albuterol Neb 3 ML IH SCH ×4 (03:40→22:42)
[2016-12-26 03:54] LABS: Bilirubin,Urine Negative (Negative); Blood,Urine Negative (Negative); Clarity,Urine Clear (Clear); Color,Urine Yellow (Yellow); Glucose,Urine (UA) Normal (Normal); Ketones,Urine 15 mg/dL (Negative); Leukocyte Esterase,Urine Negative (Negative); Nitrite,Urine Negative (Negative); PH,Urine 5.5 pH Units (5.0-8.0); Protein,Urine 100 mg/dL (Neg-Trace); Specific Gravity,Urine 1.019 (1.010-1.025); Urobilinogen,Urine Normal (Normal)
[2016-12-26 03:57] LABS: Bacteria,Urine None Seen per hpf (None-Few); Hyaline Casts,Urine None Seen per lpf (None-Few); RBC,Urine 0-3 per hpf (0-3); Squamous Epithelial Cell,Urine Few per lpf (None-Few); WBC,Urine 0-3 per hpf (0-3)
[2016-12-26 05:42] LABS: Basophils % 0.2 %; Hematocrit 44.8 % (37.5-50.1); Hemoglobin 14.5 g/dL (12.9-16.9); Immature Granulocytes % 0.8 % (0-4); Lymphocytes # 0.5 K/mcL (0.6-4.6); Lymphocytes % 7.4 %; Mean Corpuscular HGB Conc 32.4 g/dL (31.6-35.5); Mean Corpuscular Hemoglobin 30.1 pg (28.0-33.3); Mean Corpuscular Volume 93.1 fL (83.0-100.0); Mean Platelet Volume 9.3 fL (9.4-12.4); Monocytes # 0.1 K/mcL (0.0-1.3); Monocytes % 0.8 %; Neutrophils # 5.8 K/mcL (1.6-8.9); Platelet Count 215 K/mcL (140-400); Red Blood Count 4.81 M/mcL (4.19-5.50); Red Cell Distribution Width 15.3 % (11.5-14.5); Segmented Neutrophils % 90.8 %
[2016-12-26] MEDS: *HR* Enoxaparin 40 MG/0.4 ML SYRINGE SQ SCH (05:43)
[2016-12-26] MEDS: methylPREDNISolone 125 MG/2 ML VIAL IM SCH (05:43)
[2016-12-26 06:00] LABS: Calcium 10.1 mg/dL (8.6-10.8); Carbon Dioxide 29 mEq/L (19-29); Chloride 104 mEq/L (98-109); Glucose 206 mg/dL (70-99); Magnesium 2.1 mg/dL (1.6-2.6); Potassium 5.7 mEq/L (3.5-4.5); Sodium 141 mEq/L (136-145); eGFR For African Americans > 60 (> 60); eGFR For Non-African Americans 52 (> 60)
[2016-12-26 06:23] LABS: BUN/Creatinine Ratio 22 (6-26); Blood Urea Nitrogen 31 mg/dL (8-26); Osmolality,Calculated 305 (280-300)
[2016-12-26] MEDS ORDERED: Insulin LISPRO 300 UNITS/3 ML VIAL SQ SCH ×6 (07:30→21:00)
[2016-12-26] MEDS ORDERED: (Fish Oil 1,200 Mg Softgel) PO SCH (09:00)
[2016-12-26] MEDS ORDERED: Furosemide 40 MG TABLET PO SCH (09:00)
[2016-12-26] MEDS: Insulin LISPRO 300 UNITS/3 ML VIAL SQ SCH ×3 (09:24→16:28)
[2016-12-26] MEDS: Aspirin Enteric Coated 81 MG Tablet PO SCH (09:26)
[2016-12-26] MEDS: (Cyclosporine [Restasis] 1 EACH) OP SCH ×2 (09:26→20:25)
[2016-12-26] MEDS: Pregabalin 75 MG CAPSULE PO SCH ×2 (09:26→20:25)
[2016-12-26] MEDS: Fluticasone Propionate Nasal 50 MCG/SPRAY BOTTLE NS SCH (09:26)
[2016-12-26] MEDS: Levofloxacin 750 MG/150 ML 750 MG/150 ML BAG IVPB SCH (09:27)
[2016-12-26] MEDS ORDERED: (Breo Ellipta 100-25 Mcg Inh) IH SCH (10:00)
[2016-12-26] MEDS: Budesonide/Formoterol 160/4.5 MDI IH SCH ×2 (10:15→22:43)
--- NOTE | 2016-12-26 11:29 | Internal Med Progress Note ---
Date of Encounter: 12/26/16 Time of Encounter: 11:27 - Assessment and plan (1) COPD exacerbation Current Visit: Yes Status: Acute Assessment and plan: Patient presents with worsening shortness of breath and respiratory acidosis. Slowly improving. Continue IV steroids along with scheduled bronchodilators and inhaled corticosteroids. Continue supplemental oxygen along with intermittent BiPAP support as needed. High risk for complications. Patient is noted to have questionable compliance to noninvasive positive pressure ventilation at home, unsure if it is BiPAP or CPAP and unsure of the settings. We will consult pulmonology. Chest x-ray shows possible underlying infiltrates versus edema, although official report states no acute cardiopulmonary process. Continue IV antibiotics and follow-up blood cultures. Nasal swab for influenza A&B antigens negative. (2) Qiehv-pc-fpzvtos respiratory failure Current Visit: Yes Status: Acute Assessment and plan: Due to acute COPD and possible underlying pneumonia/bronchitis. Initial ABG with respiratory acidosis. Repeat ABG this morning shows improvement in pH- 7.37 with PCO2 51. Patient has been off BiPAP since this morning. Continue supplemental oxygen with when necessary BiPAP support. Qualifiers: Respiratory failure complication: hypoxia and hypercapnia Qualified Code(s) : J96.21 - Acute and chronic respiratory failure with hypoxia; J96.22 - Acute and chronic respiratory failure with hypercapnia (3) Tobacco abuse Current Visit: Yes Status: Chronic (4) BARTOLO (obstructive sleep apnea) Current Visit: Yes Status: Chronic (5) DM (diabetes mellitus), type 2 Current Visit: Yes Status: Chronic Assessment and plan: Continue Accu-Chek blood glucose monitoring with basal bolus insulin regimen. Check hemoglobin A1c. Diabetic diet. Qualifiers: Diabetes mellitus complication status: with unspecified complications Diabetes mellitus [facility] insulin use: with [facility] use Qualified Code(s) : E11.8 - Type 2 diabetes mellitus with unspecified complications; Z79.4 - termite control technician (current) use of insulin (6) History of chronic CHF Current Visit: Yes Status: Chronic Assessment and plan: Patient is noted to have history of systolic and diastolic CHF. Diuretics and NICOLE inhibitor are currently being held due to acute kidney injury. Continue beta melba and telemetry monitoring. (7) Hyperkalemia Current Visit: Yes Status: Acute Assessment and plan: Medical management with Kayexalate. Continue telemetry monitoring. Likely due to acute kidney injury. (8) SOCORRO (acute kidney injury) Current Visit: Yes Status: Acute Assessment and plan: Likely due to dehydration, use of diuretics/ACEI; hold IV hydration now and monitor serum creatinine closely. (9) Hypertension Current Visit: Yes Status: Acute Qualifiers: Hypertension type: essential hypertension Qualified Code(s): I10 - Essential (primary) hypertension - Subjective Interval history: Feels better but has intermittent dry hacking cough, exertional dyspnea; refuses to wear BiPAP as he claims current settings are different from his home settings and are very uncomfortable; - Constitutional Vitals: Temp Pulse Resp BP Pulse Ox 97.5 F L 89 22 134/62 92 12/26/16 11:16 12/26/16 11:16 12/26/16 11:16 12/26/16 11:16 12/26/16 11:16 General appearance: Present: A&O X 3, obese, answers questions appropriately Exam: facial puffiness+ - Respiratory Respiratory exam: Present: decreased breath sounds (decreased air entry B/L), CTAB. Absent: accessory muscle use, rales, rhonchi, wheezes - Cardiovascular Cardiovascular exam: Present: RRR, +S1, +S2. Absent: diastolic murmur, gallop, rubs, systolic murmur - GI/Abdominal GI/Abdominal exam: Present: normal bowel sounds, soft (obese), no peritoneal signs. Absent: distended, tenderness - Extremities Exam Extremities exam: Present: full ROM, pedal edema, warm, radial pulses palpable and symetrical. Absent: calf tenderness, cyanotic - Neurological Exam Neurological exam: Present: CN II-XII intact, oriented X3, no focal deficits. Absent: pronater drift, facial droop, speech deficit Internal Medicine: Result - Labs CBC & Chem 7: 12/26/16 04:33 12/26/16 04:33 Labs: Short CBC 12/26/16 Range/Units 04:33 WBC 6.3 (4.3-11.1) K/mcL Hgb 14.5 (12.9-16.9) g/dL Hct 44.8 (37.5-50.1) % Plt Count 215 (140-400) K/mcL Neutrophils # 5.8 (1.6-8.9) K/mcL BMP 12/26/16 04:33 Sodium 141 Potassium 5.7 H Chloride 104 Carbon Dioxide 29 BUN 31 H Creatinine 1.38 H Glucose 206 H Calcium 10.1 Cardiac Enzymes 12/26/16 Range/Units 04:33 Troponin I 0.01 (0-0.03) ng/mL Urine 12/26/16 Range/Units 02:30 Urine Color Yellow (Yellow) Urine Clarity Clear (Clear) Urine pH 5.5 (5.0-8.0) pH Units Ur Specific [place] 1.019 (1.010-1.025) Urine Protein 100 H (Neg-Trace) mg/dL Urine Glucose (UA) Normal (Normal) mg/dL - ABG Interpretation ABG results: ABG ABG pH 7.27 pH Units (7.32-7.45) L 12/26/16 02:44 ABG pCO2 60 mmHg (35-45) H 12/26/16 02:44 ABG pO2 59 mmHg (85-104) L 12/26/16 02:44 ABG O2 Saturation 86 % (95-98) L 12/26/16 02:44 PT/INR, D-dimer PT 11.4 Seconds (9.4-12.1) 12/25/16 18:34 Consult Discharge Plan - Plan Referrals: Emigdio Nolan MD [Primary Care Provider] - 01/07/17 9:00 am
[2016-12-26 11:38] LABS: ABG Base Excess 3.2 mEq/L (-2.0 to 3.0); ABG HCO3 29.5 mEQ/L (21-27); ABG Oxygen Saturation 93 % (95-98); ABG PCO2 51 mmHg (35-45); ABG PH 7.37 pH Units (7.32-7.45); ABG PO2 68 mmHg (85-104); ABG TCO2 31.1 mEq/L (20-26)
[2016-12-26 11:39] LABS: Blood Gas Liter Flow 4 L/MIN
--- NOTE | 2016-12-26 12:26 | Electrocardiograph Report ---
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
--- NOTE | 2016-12-26 12:26 | Electrocardiograph Report ---
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
[2016-12-26] MEDS: methylPREDNISolone 125 MG/2 ML VIAL IVP SCH ×2 (14:35→19:26)
[2016-12-26] MEDS ORDERED: Pantoprazole 40 MG VIAL IVP ONE (20:06)
[2016-12-26] MEDS ORDERED: Sucralfate 1 GM TABLET PO ONE (20:07)
[2016-12-26] MEDS ORDERED: Insulin NPH 100 UNIT/ML (x5UNIT) SQ SCH (21:00)
[2016-12-27] MEDS: Ipratropium/Albuterol Neb 3 ML IH SCH ×2 (04:37→11:12)
[2016-12-27] MEDS: methylPREDNISolone 125 MG/2 ML VIAL IVP SCH ×3 (04:58→12:09)
[2016-12-27] MEDS: *HR* Enoxaparin 40 MG/0.4 ML SYRINGE SQ SCH (05:40)
[2016-12-27 05:54] LABS: Hemoglobin A1C 7.1 %
[2016-12-27 06:45] LABS: BUN/Creatinine Ratio 43 (6-26); Calcium 9.5 mg/dL (8.6-10.8); Carbon Dioxide 25 mEq/L (19-29); Chloride 98 mEq/L (98-109); Glucose 136 mg/dL (70-99); Magnesium 1.9 mg/dL (1.6-2.6); Osmolality,Calculated 287 (280-300); Sodium 132 mEq/L (136-145); eGFR For African Americans > 60 (> 60); eGFR For Non-African Americans > 60 (> 60)
[2016-12-27 06:46] LABS: Blood Urea Nitrogen 44 mg/dL (8-26); Potassium 3.7 mEq/L (3.5-4.5)
--- NOTE | 2016-12-27 08:19 | Pulmonology Consult Note ---
Date of Encounter: 12/27/16 Time of Encounter: 07:45 Assessment and Plan (1) COPD exacerbation Current Visit: Yes Status: Acute Patient clinically feels much better and he is alert and oriented 3 and T zone appropriate treatment. Discussed with primary team that he can be discharged home on taper prednisone and antibiotic from pulmonary standpoint and follow up as outpatient in 3-4 weeks. (2) Ktztu-xj-eejxutv respiratory failure Current Visit: Yes Status: Acute Patient is doing much better and continue home oxygen therapy. Qualifiers: Respiratory failure complication: hypoxia and hypercapnia Qualified Code(s) : J96.21 - Acute and chronic respiratory failure with hypoxia; J96.22 - Acute and chronic respiratory failure with hypercapnia (3) Tobacco abuse Current Visit: Yes Status: Chronic Advised patient to quit smoking (4) BARTOLO and COPD overlap syndrome Current Visit: Yes Status: Chronic Patient to follow-up as outpatient to check his compliant report and continue home treatment. History of Present Illness Consult date: 12/27/16 Requesting physician: Nancy Meza Reason for consult: COPD Chief complaint: Alter mental status History of present illness: This is very pleasant 66-year-old male who is established patient in our office and he has history of COPD as well as obstructive sleep apnea and according to him he is compliant with his treatment. Patient was having more shortness of breath with altered mental status and he was treated for COPD exacerbation. Patient feels much better today and he feels he is at his baseline. Patient uses home oxygen at 2 L/m. The patient presented with altered mental status was hypercapnia. Patient is compliant according to him with his PAP treatment. Patient had productive green sputum and wheezing. He is feeling better as he mentioned on bronchodilators and systemic steroids. Unfortunately patient continued to smoke tobacco daily even though he was advised to quit smoking multiple times. Past Med Surg Social Fam HX - Past Medical History Medical history: CHF, COPD, diabetes, hyperlipidemia, hypertension, renal disease Psychiatric history: no psych history - Past Surgical History Surgical History: cholecystectomy, herniorrhaphy - Social History Smoking Status: Current every day smoker Packs per day: 1 Smokeless Tobacco Status: No Alcohol use: none Drug use: none - Family History Mother Living Status: Age at : 88 Hx Family Cardiac Disorders: Yes Father Living Status: Age at : 75 Hx Family Cancer: Yes (lung) Medications and Allergies Albuterol Sulfate [Albuterol Inhaler] 2 mcg IH Q4HR PRN 08/16/15 [History] Aspirin Enteric Coated [Aspirin EC] 81 mg PO DAILY 08/16/15 [History] Atorvastatin [Lipitor] 40 mg PO DAILY 08/16/15 [History] Cinnamon Bark [Cinnamon] 2,000 mg PO DAILY 08/16/15 [History] Cyclosporine [Restasis] 1 each BOTH EYES BID 08/16/15 [History] Fluticasone Propionate Nasal [Flonase] 1 spray NS DAILY 08/16/15 [History] Furosemide [Lasix] 40 mg PO DAILY 08/16/15 [History] Lisinopril [Zestril] 5 mg PO DAILY 08/16/15 [History] [place]-3S/Dha/Epa/Fish Oil [Fish Oil 1,200 mg Softgel] 1 each PO BID 08/16/15 [ History] Ipratropium/Albuterol Neb [Duoneb] 3 ml IH Q6HR PRN 04/04/16 [History] Budesonide/Formoterol 160/4.5 [Symbicort 160/4.5] 2 puff IH BIDR 11/15/16 [ History] Fluticasone/Vilanterol [Breo Ellipta 100-25 Mcg INH] 1 each IH DAILY 11/15/16 [ History] Gabapentin [Neurontin] 800 mg PO TID 11/15/16 [History] Metformin HCl [Glucophage] 1,000 mg PO BID 11/15/16 [History] Pregabalin [Lyrica] 75 mg PO BID 11/15/16 [History] Insulin Glargine,Hum.rec.anlog [Lantus Solostar] 62 unit SQ BID 12/25/16 [ History] Liraglutide [Victoza 2-Mychal] 1.2 mg SQ DAILY 12/25/16 [History] Metolazone [Zaroxolyn] 5 mg PO DAILY 12/25/16 [History] Allergies insulin detemir [From Levemir] Adverse Reaction (Verified 12/25/16 23:03) Gastrointestinal Upset sitagliptin [From Januvia] Adverse Reaction (Verified 12/15/16 10:05) Gastrointestinal Upset All Systems: A 10-system review of systems was performed and is negative for pertinent findings except as documented above in the HPI. Physical Examination Vital Signs: Vital Signs, Last 4 Hours Temp Pulse Resp BP Pulse Ox 12/27/16 07:34 98.2 F 73 16 138/67 95 12/27/16 05:21 93 12/27/16 04:35 16 99 12/27/16 04:30 78 General appearance: no acute distress Eyes: nonicteric ENT: oropharynx moist Mallampati (class): 4 Neck: supple, no lymphadenopathy, no JVD Effort: normal Auscultation: right: rhonchi, bilateral: diminished breath sounds Percussion: bilateral: not dull Cardiovascular: regular rate and rhythm Gastrointestinal: normoactive bowel sounds, non-distended Extremities: no cyanosis, edema normal mental status, non-focal exam mood appropriate Results - Laboratory Findings CBC and BMP: 12/26/16 04:33 12/27/16 06:18 ABG ABG pH 7.37 pH Units (7.32-7.45) 12/26/16 11:30 ABG pCO2 51 mmHg (35-45) H 12/26/16 11:30 ABG pO2 68 mmHg (85-104) L 12/26/16 11:30 ABG O2 Saturation 93 % (95-98) L 12/26/16 11:30 PT/INR, D-dimer PT 11.4 Seconds (9.4-12.1) 12/25/16 18:34 Abnormal lab findings: Abnormal lab results RDW 15.3 % (11.5-14.5) H 12/26/16 04:33 MPV 9.3 fL (9.4-12.4) L 12/26/16 04:33 Lymphocytes # 0.5 K/mcL (0.6-4.6) L 12/26/16 04:33 APTT 43.4 Seconds (26.0-36.0) H 12/25/16 18:34 ABG pCO2 51 mmHg (35-45) H 12/26/16 11:30 ABG pO2 68 mmHg (85-104) L 12/26/16 11:30 ABG HCO3 29.5 mEQ/L (21-27) H 12/26/16 11:30 ABG Total CO2 31.1 mEq/L (20-26) H 12/26/16 11:30 ABG O2 Saturation 93 % (95-98) L 12/26/16 11:30 ABG Base Excess 3.2 mEq/L (-2.0 to 3.0) H 12/26/16 11:30 Carboxyhemoglobin 6.5 % (0-5) H 12/25/16 18:14 Sodium 132 mEq/L (136-145) L D 12/27/16 06:18 BUN 44 mg/dL (8-26) H D 12/27/16 06:18 BUN/Creatinine Ratio 43 (6-26) H 12/27/16 06:18 Glucose 136 mg/dL (70-99) H 12/27/16 06:18 POC Glucose 307 (58-89) H 12/26/16 21:19 Hemoglobin A1c 7.1 % (-5.6) H 12/27/16 05:16 Urine Protein 100 mg/dL (Neg-Trace) H 12/26/16 02:30 Urine Ketones 15 mg/dL (Negative) H 12/26/16 02:30 - Diagnostic Findings Chest x-ray: report reviewed, image reviewed - Clinical Findings Intake & Output: Intake & Output 12/26/16 12/27/16 12/27/16 23:59 07:59 15:59 Intake Total 1040 / 1040 Balance 1040 / 1040 Weight 107.5 kg Consult Discharge Plan - Plan Referrals: Emigdio garcia MD [Primary Care Provider] - 01/07/17 9:00 am
[2016-12-27] MEDS: (Cyclosporine [Restasis] 1 EACH) OP SCH (08:41)
[2016-12-27] MEDS: Fluticasone Propionate Nasal 50 MCG/SPRAY BOTTLE NS SCH (08:41)
[2016-12-27] MEDS: Aspirin Enteric Coated 81 MG Tablet PO SCH (08:41)
[2016-12-27] MEDS: Insulin LISPRO 300 UNITS/3 ML VIAL SQ SCH ×2 (08:41→12:09)
[2016-12-27] MEDS: Levofloxacin 750 MG/150 ML 750 MG/150 ML BAG IVPB SCH (08:41)
[2016-12-27] MEDS: Pregabalin 75 MG CAPSULE PO SCH (08:41)
[2016-12-27] MEDS ORDERED: Insulin NPH 100 UNIT/ML (x5UNIT) SQ SCH (09:00)
[2016-12-27] MEDS: Budesonide/Formoterol 160/4.5 MDI IH SCH (11:11)
[2016-12-27 11:19] VITALS: BP 129/67
--- NOTE | 2016-12-27 11:39 | Discharge Summary ---
Date of Encounter: 12/27/16 Time of Encounter: 11:38 - Discharge Diagnosis (1) Hyperkalemia Priority: Primary Status: Resolved (2) SOCORRO (acute kidney injury) Priority: Primary Status: Resolved (3) COPD exacerbation Priority: Primary Status: Acute (4) Bptpt-lg-fdozoan respiratory failure Priority: Primary Status: Acute Qualifiers: Respiratory failure complication: hypoxia and hypercapnia Qualified Code(s) : J96.21 - Acute and chronic respiratory failure with hypoxia; J96.22 - Acute and chronic respiratory failure with hypercapnia (5) Tobacco abuse Priority: Secondary Status: Chronic (6) BARTOLO (obstructive sleep apnea) Priority: Secondary Status: Chronic (7) DM (diabetes mellitus), type 2 Priority: Secondary Status: Chronic Qualifiers: Diabetes mellitus complication status: with hyperglycemia 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 Qualified Code(s): E11.65 - Type 2 diabetes mellitus with hyperglycemia; Z79.4 - [facility] (current) use of insulin (8) History of chronic CHF Priority: Secondary Status: Chronic (9) Hypertension Priority: Secondary Status: Chronic Qualifiers: Hypertension type: essential hypertension Qualified Code(s): I10 - Essential (primary) hypertension - Discharge Medications Home Medications: Albuterol Sulfate [Albuterol Inhaler] 2 mcg IH Q4HR PRN 08/16/15 [History] Aspirin Enteric Coated [Aspirin EC] 81 mg PO DAILY 08/16/15 [History] Atorvastatin [Lipitor] 40 mg PO DAILY 08/16/15 [History] Cinnamon Bark [Cinnamon] 2,000 mg PO DAILY 08/16/15 [History] Cyclosporine [Restasis] 1 each BOTH EYES BID 08/16/15 [History] Fluticasone Propionate Nasal [Flonase] 1 spray NS DAILY 08/16/15 [History] Furosemide [Lasix] 40 mg PO DAILY 08/16/15 [History] Lisinopril [Zestril] 5 mg PO DAILY 08/16/15 [History] [place]-3S/Dha/Epa/Fish Oil [Fish Oil 1,200 mg Softgel] 1 each PO BID 08/16/15 [ History] Ipratropium/Albuterol Neb [Duoneb] 3 ml IH Q6HR PRN 04/04/16 [History] Budesonide/Formoterol 160/4.5 [Symbicort 160/4.5] 2 puff IH BIDR 11/15/16 [ History] Fluticasone/Vilanterol [Breo Ellipta 100-25 Mcg INH] 1 each IH DAILY 11/15/16 [ History] Gabapentin [Neurontin] 800 mg PO TID 11/15/16 [History] Metformin HCl [Glucophage] 1,000 mg PO BID 11/15/16 [History] Pregabalin [Lyrica] 75 mg PO BID 11/15/16 [History] Insulin Glargine,Hum.rec.anlog [Lantus Solostar] 62 unit SQ BID 12/25/16 [ History] Liraglutide [Victoza 2-Mychal] 1.2 mg SQ DAILY 12/25/16 [History] Cholecalciferol (Vitamin D3) [Dialyvite Vitamin D] 5,000 unit PO DAILY 12/27/16 [History] Cyanocobalamin (B-12) [Vitamin B12] 1,000 mcg PO DAILY 12/27/16 [History] Metolazone [Zaroxolyn] 2.5 mg PO DAILY #0 12/27/16 [Rx] Sennosides/Docusate Sodium [Senna-Docusate Sodium Tablet] 1 tab PO DAILY PRN [History] Sildenafil Citrate [Viagra] 50 mg PO PRN PRN 12/27/16 [History] Tiotropium [place] [Spiriva Respimat] 4 gm IH DAILY 12/27/16 [History] Vitamin B Complex [B Complex] 1 tab PO DAILY 12/27/16 [History] Allergies/Adverse Reactions: Allergies insulin detemir [From Levemir] Adverse Reaction (Verified 12/25/16 23:03) Gastrointestinal Upset sitagliptin [From Januvia] Adverse Reaction (Verified 12/15/16 10:05) Gastrointestinal Upset Date of admission: 12/26/16 01:57 Primary care physician: Emigdio Nolan MD Consults: 12/26/16 07:43 Consult to Pulmonology [CONS] Routine Consulting Provider: [facility] [place] Reason for Consult: Acute on chronic resp failure Call Completed: No Discharging clinician: Nancy Meza Anticipated date of discharge: 12/27/16 - Patient Status Disposition: Home, Self-Care Condition: Fair Functional capacity at discharge: independent ambulation Overall status at discharge: patient is progressing back to baseline - Discharge Instructions Instructions: Prednisone (By mouth), Levofloxacin (By mouth), Chronic Obstructive Pulmonary Disease (DC) Follow Up With: Felicita Mahmood MD [Partnered Physician] - 01[facility]28[facility]17 1[facility]30 [facility] [place] [Primary Care Provider[facility] - 01/07/17 9:00 am Additional Instructions: F/up with in 2-3 weeks - Diet and Activity Activity: resume usual activities as tolerated, wear oxygen at all times, other (wear BiPAP during sleep at 24/ settings) Diet: diabetic diet, low fat, low cholesterol, low salt diet Hospital course: Mr. Sutherland is a 66 year old male with the above medical problems who was admitted with worsening cough and shortness of breath. He was noted to have respiratory acidosis with hypoxia and hypercapnia along with acute renal failure and hyperkalemia after initial evaluation in the emergency room. He was started on gentle IV hydration, home medications of diuretics and NICOLE inhibitor were held. He received medical management for hyperkalemia with Kayexalate, calcium gluconate, albuterol. He was also noted to be in acute exacerbation of COPD and was started on IV steroids, IV antibiotics, bronchodilators and supplemental oxygen. He received noninvasive positive pressure ventilation with BiPAP support at admission and he was able to be weaned off it by the next morning. Patient also was not compliant with BiPAP as he claimed pressure settings were uncomfortable when compared to his home settings. He is also noted to be on home BiPAP with questionable compliance. Chest x-ray official report showed no evidence of acute cardiopulmonary disease , however bilateral opacities could be seen, possible infiltrates or atelectasis. Blood cultures remain negative. Patient's repeat ABG showed improved respiratory acidosis, he remained hemodynamically stable and serum creatinine and electrolytes gradually normalized. Diuretics and NICOLE inhibitor are being restarted at a lower dose. Pulmonology was consulted and agreed with current management and patient is medically stable for discharge on oral antibiotics and steroid course with outpatient pulmonology follow-up. - Time Spent with Patient Total time spent providing and/or coordinating discharge services: Greater than 30 minutes (50 min) - Constitutional Vitals: Temp Pulse Resp BP Pulse Ox 98.0 F 67 18 129/67 99 04/20/17 11:18 12/27/16 11:18 12/27/16 11:18 12/27/16 11:18 12/27/16 11:18 General appearance: Present: A&O X 3, obese, answers questions appropriately - Respiratory Respiratory exam: Present: CTAB (improved wheezing). Absent: accessory muscle use, rales, rhonchi, wheezes - Cardiovascular Cardiovascular exam: Present: RRR, +S1, +S2. Absent: diastolic murmur, gallop, rubs, systolic murmur
== END 2016-12-27 14:35 | disposition home or self-care (01) | DRG 140 ==
LOC: 2NNU 17:59 → EMEROO 17:59 → 2NNU 21:28
PROVIDERS: ADMIT Internal Medicine; ATTEND Internal Medicine

== ENCOUNTER 2019-01-07 03:14 | Inpatient (IN) ==
--- NOTE | 2019-01-07 03:26 | Emergency Department Note ---
Disposition Clinical Impression: Postoperative pain after spinal surgery, Decreased ambulation status Disposition: Admitted As Inpatient Condition: Good Instructions: Acute Low Back Pain (ED) Referrals: Jm Blum Jr, MD [Partnered Physician] - Forms: ED Satisfaction Letter Time of Disposition: 04:38 Back Pain HPI - General Chief Complaint: ED Back Pain/Injury Stated Complaint: back/leg pain Time Seen by Provider: 01/07/19 03:15 Source: patient, EMS Mode of arrival: EMS Limitations: no limitations Nursing Notes Reviewed: Yes Vital Signs Reviewed: Yes - History of Present Illness HPI Narrative: Patient is a 68-year-old male with past medical history of laminectomy on 01/[address] Blum. He presents today due to worsening back pain. Patient states that he was discharged on the afternoon of 01/06 status post laminectomy of the lumbar region. He states that prior to surgery, he had chronic low back pain with radiation down his bilateral legs. He presents today with similar pain distribution but states it is worsening. He was sent home with Percocet and has been taking these as prescribed and states that it is not helping much with the pain. Denies any numbness, tingling, weakness, change in bowel or bladder control, saddle anesthesia. He rates his pain a 10 out of 10. States that he is unable to stand due to pain. Denies any other fevers, nausea, vomiting, diarrhea, abdominal pain, constipation, dysuria, hematuria. - Related Data Home Medications Medication Instructions Recorded Confirmed Albuterol Sulfate [Ventolin Hfa] 2 puff IH Q4H PRN 01/05/19 01/07/19 Aspirin [Lo-Dose Aspirin EC] 81 mg PO DAILY 01/05/19 01/07/19 Atorvastatin [Lipitor] 20 mg PO HS 01/05/19 01/07/19 Budesonide/Formoterol 160/4.5 2 puff IH BIDR 01/05/19 01/07/19 [Symbicort 160/4.5] Cinnamon Bark [Cinnamon] 500 mg PO DAILY 01/05/19 01/07/19 Fluticasone Propionate Nasal 1 spr NS DAILY 01/05/19 01/07/19 [Flonase] Furosemide [Lasix] 20 mg PO DAILY 01/05/19 01/07/19 Gabapentin 800 mg PO TID 01/05/19 01/07/19 Glycopyrrolate/Formoterol Fum 2 puff IH BID 01/05/19 01/07/19 [Bevespi Aerosphere Inhaler] Insulin DETEMIR [Levemir Flextouch] 62 unit SQ BID 01/05/19 01/07/19 Ipratropium/Albuterol Neb [Duoneb] 3 ml IH Q6HR PRN 01/05/19 01/07/19 Liraglutide [Victoza 2-Mychal] 1.2 mg SQ DAILY 01/05/19 01/07/19 Lisinopril 2.5 mg PO DAILY 01/05/19 01/07/19 Metformin HCl [Glucophage] 1,000 mg PO BID 01/05/19 01/07/19 [place]-3/Dha/Epa/Fish Oil [Fish Oil 1 cap PO DAILY 01/05/19 01/07/19 1,000 mg Softgel] metOLazone [Zaroxolyn] 5 mg PO DAILY 01/05/19 01/07/19 Previous Rx's Medication Instructions Recorded Docusate Sodium [Colace] 100 mg PO BID 5 Days #10 capsule 01/06/19 OxyCODONE Immed Rel [Roxicodone 5 5 mg PO Q6HR PRN 5 Days #20 tablet 01/06/19 MG] Allergies Allergy/AdvReac Type Severity Reaction Status Date / Time sitagliptin [From ] AdvReac Gastrointestinal Verified 01/05/19 08:51 Upset All systems ED: reviewed and negative except as stated. Constitutional: Denies: fever Cardiovascular: Denies: chest pain Respiratory: Denies: dyspnea Gastrointestinal: Denies: abdominal pain, nausea, vomiting, diarrhea, constipation Musculoskeletal: Reports: back pain Neurological: Denies: weakness, numbness, paresthesias Past Medical History - Past Medical History Attestation: Yes The following information was validated with the patient. Source: patient Medical history: Reports: COPD, diabetes, hyperlipidemia, hypertension Surgical history: Reports: cholecystectomy, herniorrhaphy Psychiatric history: Reports: no psych history - Social History Smoking Status: Current every day smoker Smokeless Tobacco Status: No Alcohol use: Reports: none Drug use: Reports: none Physical Exam - General Limitations: no limitations General appearance: alert - Head Head exam: atraumatic, normocephalic, normal inspection - Eye Eye exam: Present: normal appearance, PERRL, EOMI - ENT ENT exam: normal exam, normal oropharynx, mucous membranes moist - Neck Neck exam: Present: normal inspection, full ROM, trachea midline - Chest Chest inspection: Present: normal inspection, symmetric chest wall rise - Respiratory Respiratory exam: Present: normal lung sounds bilaterally - Cardiovascular Cardiovascular exam: Present: regular rate, normal rhythm, normal heart sounds - Abdominal Exam Abdominal exam: Present: soft, Non-Tender, distention (Generalized). Absent: tenderness, guarding, rebound, rigidity - Male exam: Present: other (no saddle or groin anesthesia; sensation to light touch intact) - Extremities Exam Extremities exam: Present: normal inspection, full ROM. Absent: tenderness, pedal edema - Back Exam Back 1 view image: 1 - Midline surgical incision site approx 10 cm in length with no dehiscence of the wound. Stitches in place. No pus drainage. No erythema. No crepitus or major tenderness of the area. - Neurological Exam Neurological exam: Present: alert, oriented X3 - Expanded Neurological Exam Patient oriented to: Present: person, place, time Speech: Present: fluid speech Motor strength - LUE: 5/5 Motor strength - RUE: 5/5 Motor strength - LLE: 5/5 Motor strength - RLE: 5/5 Sensory exam upper extremity: light touch: Normal Sensory exam lower extremity: light touch: Normal DTR: patellar (L): 2+, patellar (R): 2+, Achilles tendon (L): 2+, Achilles tendon (R): 2+ Coma Scale Eye Opening: Spontaneous Coma Scale Motor Response: Obeys Commands Coma Scale Verbal Response: Oriented Coma Scale Total: 15 - Psychiatric Psychiatric exam: Present: anxious - Skin Skin exam: Present: warm, dry, intact, normal color Course Course Narrative: Patient had intact patellar and Achilles DTRs. Full sensation of bilateral lower extremities. Strength 5 out of 5 and plantar flexion, dorsiflexion. Groin was checked for sensation. No saddle anesthesia. He has no concerning symptoms of nausea, vomiting, fevers. No signs of any infection at the incision site. I called Dr. Blum, surgeon who performed the surgery. We discussed the case, presentation, physical exam findings. No concern for any red flags at this time. he stated james he was comfortable with no further imaging at this time, no further lab work. He requested that we give the patient Neurontin and Valium and then have the patient follow-up with his office on at 9 AM. Patient is already on Neurontin 800 mg 3 times a day. We did go ahead and give the patient Valium 5 mg. We will reassess. If patient has improvement in his pain, will send home with short course of Valium and have him follow-up with the office at 9 AM on . We will have him continue his home Neurontin and Percocet as directed. 04:36 patient was reassessed after Valium. He is now very sleepy and groggy. His is present at bedside and states that the patient was not able to walk at home at all. She is concerned about his safety with going home. Patient himself is very groggy, not able to walk at this time. is not comfortable with the patient going home. She has requested admission for further care at this time for decrease stimulation status and back pain. Patient was accepted by hospitalist who has requested basic blood work. CBC, BMP, coags ordered. Consult to Dr. Blum has some placed. Vital Signs Temperature 98.8 F 01/07/19 03:19 Pulse Rate 81 01/07/19 03:19 Respiratory Rate 18 01/07/19 03:19 Blood Pressure 143/66 01/07/19 03:19 O2 Sat by Pulse Oximetry 93 01/07/19 03:19 Temperature 98.8 F 01/07/19 03:19 Pulse Rate 81 01/07/19 03:19 Respiratory Rate 18 01/07/19 03:19 Blood Pressure 143/66 01/07/19 03:19 O2 Sat by Pulse Oximetry 93 01/07/19 03:19 Oxygen Delivery Oxygen Delivery Nasal Cannula Back Pain/Injury - MDM Narrative Medical decision making narrative: Patient had intact patellar and Achilles DTRs. Full sensation of bilateral lower extremities. Strength 5 out of 5 and plantar flexion, dorsiflexion. Groin was checked for sensation. No saddle anesthesia. He has no concerning symptoms of nausea, vomiting, fevers. No signs of any infection at the incision site. I called Dr. Blum, surgeon who performed the surgery. We discussed the case, presentation, physical exam findings. No concern for any red flags at this time. he stated james he was comfortable with no further imaging at this time, no further lab work. He requested that we give the patient Neurontin and Valium and then have the patient follow-up with his office on at 9 AM. Patient is already on Neurontin 800 mg 3 times a day. We did go ahead and give the patient Valium 5 mg. We will reassess. If patient has improvement in his pain, will send home with short course of Valium and have him follow-up with the office at 9 AM on . We will have him continue his home Neurontin and Percocet as directed. 04:36 patient was reassessed after Valium. He is now very sleepy and groggy. His is present at bedside and states that the patient was not able to walk at home at all. She is concerned about his safety with going home. Patient himself is very groggy, not able to walk at this time. is not comfortable with the patient going home. She has requested admission for further care at this time for decrease stimulation status and back pain. Patient was accepted by hospitalist who has requested basic blood work. CBC, BMP, coags ordered. Consult to Dr. Blum has some placed. - Medical Records Medical records reviewed: Yes I reviewed the patient's medical records. S.B.A.R. - S.B.A.R. Situation: Demographics, MOA Background: Presenting Complaint, Relevant PMH, Meds, & Allergies Assessment: Vital Signs, Course and respsone to treatment, Exam Concerns, Patient/Family Expectation, Pertinant Lab Results Recommendation: Barrier(s) to disposition, Recommendation based on pending studies, treatments, or consults S.B.A.R. Report Given to: Dr. Pisano Attestation Statement - Attestation Attestation: I have seen this patient with the resident physician, I have personally evalua akhil this patient. I had reviewed the chart and document dictation by the resident physician and aM in agreement with the information documented by the resident physician. Please see documentation by the resident physician for complete chart including past medical history, family medical history, review of systems, current history and physical and laboratory and imaging studies. I was present for all procedures, provided direct supervision for all procedures, was present for the entirety of all procedures and provided direct guidance during the procedures. Please see documentation by the resident physician for any procedures performed. Patient presented emergency department with severe low back pain one day post laminectomy surgery with progressive worsening pain radiating down the back of his legs he had the same pain prior to surgery but he states it seems worse now no fevers no chills no numbness or weakness no bowel or bladder incontinence no saddle anesthesia. On exam vitals are within acceptable limits, he has normal strength sensation and reflexes on physical exam, with normal perineal sensation, and no incontinence, nothing to suggest cauda equina syndrome. His incision appears very healthy without dehiscence warmth or erythema or bleeding or swelling. We contacted his neurosurgeon Dr. Blum, who recommended Neurontin and Valium, the patient was already taking Neurontin, he was given Valium which helped some with his pain he was able sleep was unable to get up and walk around, the states she cannot take care of him at home he cannot walk after the surgery, he was admitted to medicine with consultation from spine surgery
[2019-01-07] MEDS ORDERED: *HR* FentaNYL (PF) 100 MCG/2 ML VIAL IVP ONE (03:27)
[2019-01-07] MEDS ORDERED: diazePAM 10 MG/2 ML SYRINGE IVP ONE (03:46)
[2019-01-07 06:19] LABS: Basophils % 0.2 %; Eosinophils % 0.1 %; Immature Granulocytes % 0.7 % (0-4); Lymphocytes # 1.6 K/mcL (0.6-4.6); Lymphocytes % 10.5 %; Mean Corpuscular HGB Conc 31.6 g/dL (31.6-35.5); Mean Corpuscular Hemoglobin 29.6 pg (28.0-33.3); Mean Corpuscular Volume 93.5 fL (83.0-100.0); Mean Platelet Volume 9.2 fL (9.4-12.4); Monocytes # 1.9 K/mcL (0.0-1.3); Monocytes % 13.1 %; Neutrophils # 11.1 K/mcL (1.6-8.9); Platelet Count 231 K/mcL (140-400); Red Cell Distribution Width 12.9 % (11.5-14.5); Segmented Neutrophils % 75.4 %
[2019-01-07 06:20] LABS: Hemoglobin 13.6 g/dL (12.9-16.9)
[2019-01-07 06:28] LABS: Prothrombin Time 11.8 Seconds (9.4-12.1)
[2019-01-07 06:31] LABS: Activated Partial Thrombo Time 39.5 Seconds (26.0-36.0); BUN/Creatinine Ratio 26 (6-26); Blood Urea Nitrogen 31 mg/dL (8-23); Calcium 9.5 mg/dL (8.6-10.3); Carbon Dioxide 31 mEq/L (23-29); Chloride 96 mEq/L (98-107); Glucose 154 mg/dL (70-105); Osmolality,Calculated 288 (280-300); Potassium 4.7 mEq/L (3.5-5.1); Sodium 134 mEq/L (136-145); eGFR For Non-African Americans > 60 (> 60)
[2019-01-07] MEDS ORDERED: *HR* OxyCODONE Immed Rel 5 MG TABLET PO PRN (06:39)
[2019-01-07] MEDS ORDERED: Naloxone 0.4 MG/ML INJ IVP PRN (07:26)
[2019-01-07] MEDS ORDERED: Ipratropium/Albuterol Neb 3 ML IH PRN (07:29)
[2019-01-07] MEDS ORDERED: D5% in Water 1,000 ML IVC PRN ×2 (07:31→10:01)
[2019-01-07] MEDS ORDERED: Dextrose Gel 15 GM/37.5 ML TUBE PO PRN ×4 (07:31→10:01)
[2019-01-07] MEDS ORDERED: *HR* Dextrose 50 % in Water (Syg) 50 ML SYRINGE IVP PRN ×2 (07:31→10:01)
--- NOTE | 2019-01-07 08:25 | Orthopedic Consult Note ---
Date of Encounter: 01/07/19 Time of Encounter: 08:40 Assessment and Plan (1) Postoperative pain after spinal surgery Current Visit: Yes Status: Acute (2) Status post laminectomy Current Visit: No Status: Acute History of Present Illness Chief complaint: back and buttock pain HPI: Mr. Sutherland is a 68 year old male POD#2 s/p Laminectomy L3-L5 performed 01/05/19 for Lumbar stenosis, lumbar radiculopathy by Dr. Blum. Patient admitted on POD#1 to improvement in preoperative symptoms and was adamant about ability to go home and was deemed no needs from therapy. Patient states his pain intensified immediately upon leaving the hospital yesterday midday, 01/06 and continued to worsen through the evening until he states he came to the ED early this morning. He states the pain is in his bu ttocks and back of his legs and is intense and noted to be yelling out episodically. Patient noted to be on oxygen 3 L. When asked how often he is on oxygen he states "when I need it". When asked how he knows he needs it he states "when I feel short of breath because of my COPD". Patient sitting on edge of bed leaning on walker crying. Dressing to low back c/d/i. Incision inspected and noted to be c/d/i. Motion intact to b/l LE. Neurovascualrly intact to b/l LE. Case discussed with Dr. Blum Patient admitted for pain control Appears as normal distribution for postop pain with no incisional findings suggesting complication. Dr. Hodge ordering medication for patient's pain Keep outpatient follow up as scheduled. Thank you for this consultation. Past Med Surg Social Fam HX - Past Medical History Medical history: COPD, diabetes, hyperlipidemia, hypertension Additional medical history: not aware of previously charted CHF, or Renal Disease-- removed them from the list Psychiatric history: no psych history - Past Surgical History Surgical History: cholecystectomy, herniorrhaphy Additional surgical history: skin spots removed. LEFT HAND 5TH DIGIT SURGERY. Lamanectomy on 01/05/19 - Social History Smoking Status: Current every day smoker Smokeless Tobacco Status: No Alcohol use: none Drug use: none - Family History Father Living Status: Hx Family Cancer: Yes (lung) Mother Living Status: Hx Family Cardiac Disorders: Yes Hx Family Neurologic Disorders: Yes (stroke) Medications and Allergies RX: Albuterol Sulfate [Ventolin Hfa] 2 puff IH Q4H PRN 01/05/19 [History] RX: Aspirin [Lo-Dose Aspirin EC] 81 mg PO DAILY 01/05/19 [History] RX: Atorvastatin [Lipitor] 20 mg PO HS 01/05/19 [History] RX: Budesonide/Formoterol 160/4.5 [Symbicort 160/4.5] 2 puff IH BIDR 01/05/19 [History] RX: Cinnamon Bark [Cinnamon] 500 mg PO DAILY 01/05/19 [History] RX: Fluticasone Propionate Nasal [Flonase] 1 spr NS DAILY 01/05/19 [History] RX: Furosemide [Lasix] 20 mg PO DAILY 01/05/19 [History] RX: Gabapentin 800 mg PO TID 01/05/19 [History] RX: Glycopyrrolate/Formoterol Fum [Bevespi Aerosphere Inhaler] 2 puff IH BID 01/05/19 [History] RX: Insulin DETEMIR [Levemir Flextouch] 62 unit SQ BID 01/05/19 [History] RX: Ipratropium/Albuterol Neb [Duoneb] 3 ml IH Q6HR PRN 01/05/19 [History] RX: Liraglutide [Victoza 2-Mychal] 1.2 mg SQ DAILY 01/05/19 [History] RX: Lisinopril 2.5 mg PO DAILY 01/05/19 [History] RX: Metformin HCl [Glucophage] 1,000 mg PO BID 01/05/19 [History] RX: [place]-3/Dha/Epa/Fish Oil [Fish Oil 1,000 mg Softgel] 1 cap PO DAILY 01/05/19 [History] RX: metOLazone [Zaroxolyn] 5 mg PO DAILY 01/05/19 [History] RX: Docusate Sodium [Colace] 100 mg PO BID 5 Days #10 capsule 01/06/19 [Rx] RX: OxyCODONE Immed Rel [Roxicodone 5 MG] 5 mg PO Q6HR PRN 5 Days #20 tablet 01/06/19 [Rx] Allergy/AdvReac Type Severity Reaction Status Date / Time sitagliptin [From Januvia] AdvReac Gastrointestinal Verified 01/05/19 08:51 Upset All Systems Reviewed: The remainder of the systems were reviewed and are negative Physical Exam - Constitutional Vitals: Temp Pulse Resp BP Pulse Ox 98.8 F 81 15 144/66 93 01/07/19 03:19 01/07/19 03:19 01/07/19 05:56 01/07/19 05:56 01/07/19 03:19 Results - Labs Result Diagrams: 01/07/19 06:00 01/07/19 06:00 Labs: Abnormal lab results WBC 14.8 K/mcL (4.3-11.1) H 01/07/19 06:00 MPV 9.2 fL (9.4-12.4) L 01/07/19 06:00 11.1 K/mcL (1.6-8.9) H 01/07/19 06:00 1.9 K/mcL (0.0-1.3) H 01/07/19 06:00 APTT 39.5 Seconds (26.0-36.0) H 01/07/19 06:00 Sodium 134 mEq/L (136-145) L 01/07/19 06:00 Chloride 96 mEq/L (98-107) L 01/07/19 06:00 Carbon Dioxide 31 mEq/L (23-29) H 01/07/19 06:00 BUN 31 mg/dL (8-23) H 01/07/19 06:00 Glucose 154 mg/dL (70-105) H 01/07/19 06:00 POC Glucose 131 mg/dL (70-99) H 01/07/19 07:59 H & H 01/07/19 Range/Units 06:00 Hgb 13.6 D (12.9-16.9) g/dL Hct 43.0 (37.5-50.1) % All other labs normal. Consult Discharge Plan - Plan Referrals: Emigdio Nolan MD [Primary Care Provider] -
--- NOTE | 2019-01-07 08:58 | Internal Med History&Physical ---
Date of Encounter: 01/07/19 Time of Encounter: 07:00 Internal Medicine - H&P: HPI Chief complaint: back pain Admitted From: Home Plans for Post Hospital Care: Home History of present illness: Mr. Sutherland is a 68 year old male with history of laminectomy on 01/[address] Blum and discharged on 01/06 presented to the emergency department with worsening back pain. Patient is unable to provide any history as he reports that he is tired. When asked if he has expressed any incontinence of the bowel and bladder he denies. He denies any loss of function of her lower extremities, denies numbness or paresthesia. Back pain is both at rest and exacerbates when he moves. Similar to the back pain that he had higher to having his procedure however postop his back pain has been unbearable. He reports that the pain me dications that he was discharged with are not helping the pain. He denies any fever, chills, chest pain, shortness of breath, nausea, vomiting, diarrhea, abdominal pain or cough. Has had no difficulty urinating, denies dysuria, frequency, or burning. Past Med Surg Social Fam HX - Past Medical History Medical history: COPD, diabetes, hyperlipidemia, hypertension Additional medical history: not aware of previously charted CHF, or Renal Disease-- removed them from the list Psychiatric history: no psych history - Past Surgical History Surgical History: cholecystectomy, herniorrhaphy Additional surgical history: skin spots removed. LEFT HAND 5TH DIGIT SURGERY. Lamanectomy on 01/05/19 - Social History Smoking Status: Current every day smoker Smokeless Tobacco Status: No Alcohol use: none Drug use: none - Family History Mother Living Status: Hx Family Cardiac Disorders: Yes Hx Family Neurologic Disorders: Yes (stroke) Father Living Status: Hx Family Cancer: Yes (lung) Internal Medicine - H&P: Meds Albuterol Sulfate [Ventolin Hfa] 2 puff IH Q4H PRN 01/05/19 [History] Aspirin [Lo-Dose Aspirin EC] 81 mg PO DAILY 01/05/19 [History] Atorvastatin [Lipitor] 20 mg PO HS 01/05/19 [History] Budesonide/Formoterol 160/4.5 [Symbicort 160/4.5] 2 puff IH BIDR 01/05/19 [History] Cinnamon Bark [Cinnamon] 500 mg PO DAILY 01/05/19 [History] Fluticasone Propionate Nasal [Flonase] 1 spr NS DAILY 01/05/19 [History] Furosemide [Lasix] 20 mg PO DAILY 01/05/19 [History] Gabapentin 800 mg PO TID 01/05/19 [History] Glycopyrrolate/Formoterol Fum [Bevespi Aerosphere Inhaler] 2 puff IH BID 01/05/19 [History] Insulin DETEMIR [Levemir Flextouch] 62 unit SQ BID 01/05/19 [History] Ipratropium/Albuterol Neb [Duoneb] 3 ml IH Q6HR PRN 01/05/19 [History] Liraglutide [Victoza 2-Mychal] 1.2 mg SQ DAILY 01/05/19 [History] Lisinopril 2.5 mg PO DAILY 01/05/19 [History] Metformin HCl [Glucophage] 1,000 mg PO BID 01/05/19 [History] [place]-3/Dha/Epa/Fish Oil [Fish Oil 1,000 mg Softgel] 1 cap PO DAILY 01/05/19 [History] metOLazone [Zaroxolyn] 5 mg PO DAILY 01/05/19 [History] Docusate Sodium [Colace] 100 mg PO BID 5 Days #10 capsule 01/06/19 [Rx] OxyCODONE Immed Rel [Roxicodone 5 MG] 5 mg PO Q6HR PRN 5 Days #20 tablet 01/06/19 [Rx] Allergy/AdvReac Type Severity Reaction Status Date / Time sitagliptin [From ] AdvReac Gastrointestinal Verified 01/05/19 08:51 Upset All Systems PM: A 10-system review of systems was performed and is negative for pertinent findings except as documented above in the HPI. - Constitutional Vitals: Temp Pulse Resp BP Pulse Ox 98.8 F 81 15 144/66 93 01/07/19 03:19 01/07/19 03:19 01/07/19 05:56 01/07/19 05:56 01/07/19 03:19 Exam: General: Patient is alert, oriented, in moderate distress, uncooperative with physical examination Head: atraumatic, normocephalic, Eye: normal appearance, no scleral icterus, no conjunctival injection ENT: mucous membranes moist, normal external ear exam Neck: normal inspection, trachea midline, full ROM Chest: normal inspection, symmetric chest rise Respiratory: Good respiratory effort. Bilateral breath sounds are clear without wheezing, crackles, or rhonchi. Cardiovascular: Regular rate and rhythm. s1 and s2 No clicks, rubs, gallops, or murmors. Abdomen: Bowel sounds present normoactive x-4 quadrants. Abdomen is soft, nondistended. no Epigastric tenderness. No guarding or rebound. No organomegaly noted, obese musculoskeletal: Spontaneously moving all extremities. no edema, no calf tenderness Skin: warm, dry, intact. Neuro: Alert and oriented x3 no focal deficit Internal Med - H&P Results - Labs CBC & Chem 7: 01/07/19 06:00 01/07/19 06:00 Labs: Short CBC 01/07/19 Range/Units 06:00 WBC 14.8 H (4.3-11.1) K/mcL Hgb 13.6 D (12.9-16.9) g/dL Hct 43.0 (37.5-50.1) % Plt Count 231 (140-400) K/mcL Neutrophils # 11.1 H (1.6-8.9) K/mcL BMP 01/07/19 06:00 Sodium 134 L Potassium 4.7 Chloride 96 L Carbon Dioxide 31 H BUN 31 H Creatinine 1.20 Glucose 154 H Calcium 9.5 - Assessment and Plan (1) Postoperative pain after spinal surgery Current Visit: Yes Status: Acute Assessment and plan: post op pain post laminectomy by Dr. melgar on 01/05. Dr. melgar consulted- further imaging as per spine surgery morphine 2mg Q4H for break through pain oxycodone 5mg Q4H for pain bowel regimen Pt/Ot rest of the management as per spine surgery (2) Leukocytosis Current Visit: Yes Status: Acute Assessment and plan: most likely reactive post spine surgery UA, CXR ordered will hold off of Abx as he is afebrile, not tachycardic and no signs of SIRS Qualifiers: Leukocytosis type: unspecified Qualified Code(s): D72.829 - Elevated white blood cell count, unspecified (3) Decreased ambulation status Current Visit: Yes Status: Acute Assessment and plan: secondary to spinal surgery and pain Pt/Ot consult (4) COPD (chronic obstructive pulmonary disease) Current Visit: No Status: Acute Assessment and plan: continue home inhalers. Qualifiers: COPD type: chronic bronchitis Chronic bronchitis type: simple Qualified Code(s): J41.0 - Simple chronic bronchitis (5) DM (diabetes mellitus), type 2 Current Visit: No Status: Chronic Assessment and plan: continue with home long actng insulin and sliding scale adjust as per finger sticks Qualifiers: Diabetes mellitus long term care administrator insulin use: with retirement use Diabetes mellitus complication status: with hyperglycemia Qualified Code(s): E11.65 - Type 2 diabetes mellitus with hyperglycemia; Z79.4 - termite helper (current) use of insulin (6) Hypertension Current Visit: No Status: Chronic Assessment and plan: continue home medications if not CI Qualifiers: Hypertension type: essential hypertension Qualified Code(s): I10 - Essential (primary) hypertension (7) Obesity (BMI 30.0-34.9) Current Visit: Yes Status: Acute Assessment and plan: was counseled on diet, exercise and nutrition (8) DVT prophylaxis Current Visit: No Status: Acute Assessment and plan: heparin sc - Time Spent With Patient Total time spent is greater than 50% in coordination of care (as documented) at patient's floor/unit and/or counseling patient:
[2019-01-07] MEDS ORDERED: NON-FORMULARY MEDICATION 1 EACH EACH (Glycopyrrolate/Formoterol Fum [Bevespi Aerosphere In IH SCH (09:00)
[2019-01-07] MEDS ORDERED: Insulin DETEMIR 100 UNIT/ML X5UNITS SQ SCH (09:00)
[2019-01-07] MEDS ORDERED: NON-FORMULARY MEDICATION 1 EACH EACH (Omega-3/Dha/Epa/Fish Oil [Fish Oil 1,000 Mg Softgel] PO SCH (09:00)
[2019-01-07 09:25] LABS: Amylase 77 Units/L (29-103); Lipase 54 Units/L (11-82)
[2019-01-07] MEDS: metOLazone 5 MG TABLET PO SCH (09:56)
[2019-01-07] MEDS: Aspirin Enteric Coated 81 MG Tablet PO SCH (09:57)
[2019-01-07] MEDS: Gabapentin 400 MG CAPSULE PO SCH ×3 (09:57→21:23)
[2019-01-07] MEDS: Furosemide 20 MG TABLET PO SCH (09:57)
[2019-01-07] MEDS: Fluticasone Propionate Nasal 50 MCG/SPRAY BOTTLE NS SCH (09:59)
[2019-01-07] MEDS: Sennosides 8.6 MG TABLET PO SCH (09:59)
[2019-01-07] MEDS: OXYCODONE Oral CONC 10 MG/0.5 ML ORAL.SYG SL PRN ×2 (12:03→17:48)
[2019-01-07] MEDS: Insulin LISPRO 300 UNITS/3 ML VIAL SQ SCH ×2 (12:03→17:49)
[2019-01-07] MEDS: *HR* Heparin 5,000 UNIT/ML VIAL SQ SCH ×2 (15:00→21:24)
[2019-01-07] MEDS: Budesonide/Formoterol 160/4.5 1 PUFF INH IH SCH (21:12)
[2019-01-07] MEDS: diazePAM 5 MG TABLET PO PRN (21:23)
[2019-01-07] MEDS: Insulin DETEMIR 100 UNIT/ML X5UNITS SQ SCH (21:24)
[2019-01-08] MEDS: OXYCODONE Oral CONC 10 MG/0.5 ML ORAL.SYG SL PRN ×2 (01:36→07:55)
[2019-01-08 04:20] LABS: Basophils % 0.2 %; Eosinophils % 0.1 %; Hematocrit 44.3 % (37.5-50.1); Hemoglobin 14.3 g/dL (12.9-16.9); Immature Granulocytes % 0.4 % (0-4); Lymphocytes # 0.8 K/mcL (0.6-4.6); Lymphocytes % 4.9 %; Mean Corpuscular HGB Conc 32.3 g/dL (31.6-35.5); Mean Corpuscular Hemoglobin 30.1 pg (28.0-33.3); Mean Corpuscular Volume 93.3 fL (83.0-100.0); Mean Platelet Volume 9.9 fL (9.4-12.4); Monocytes # 1.8 K/mcL (0.0-1.3); Monocytes % 10.2 %; Neutrophils # 14.5 K/mcL (1.6-8.9); Platelet Count 229 K/mcL (140-400); Red Blood Count 4.75 M/mcL (4.19-5.50); Red Cell Distribution Width 12.5 % (11.5-14.5); Segmented Neutrophils % 84.2 %
[2019-01-08] MEDS: *HR* Heparin 5,000 UNIT/ML VIAL SQ SCH ×3 (04:43→20:53)
[2019-01-08] MEDS: diazePAM 5 MG TABLET PO PRN (04:43)
[2019-01-08] MEDS: Tiotropium 18 MCG inhalation IH SCH (07:40)
[2019-01-08] MEDS: Budesonide/Formoterol 160/4.5 1 PUFF INH IH SCH ×2 (07:41→22:04)
[2019-01-08] MEDS: Insulin LISPRO 300 UNITS/3 ML VIAL SQ SCH ×3 (07:54→16:51)
[2019-01-08] MEDS: metOLazone 5 MG TABLET PO SCH (07:56)
[2019-01-08] MEDS: Gabapentin 400 MG CAPSULE PO SCH ×3 (07:57→20:52)
[2019-01-08] MEDS: Furosemide 20 MG TABLET PO SCH (07:57)
[2019-01-08] MEDS: Sennosides 8.6 MG TABLET PO SCH (07:57)
[2019-01-08] MEDS: Aspirin Enteric Coated 81 MG Tablet PO SCH (07:57)
--- NOTE | 2019-01-08 09:18 | Internal Med Progress Note ---
<Samuel Padilla - Last Filed: 01/08/19 09:52> Hospitalist Progress Note - Encounter Date of Encounter: 01/08/19 Time of Encounter: 08:00 - Subjective Interval History: Patient reports severe low back pain. He was developed by orthopedic surgery and reports this is just postoperative back pain. Patient after his surgery refused home health services, and placement for rehabilitation. Patient is awake and alert however it does look sedated from pain medication and Valium. - Exam Vitals: Temp Pulse Resp BP Pulse Ox 97.7 F 86 16 135/67 91 01/08/19 08:00 01/08/19 08:00 01/08/19 08:00 01/08/19 08:00 01/08/19 08:00 Exam: General: pleasant, without distress, appears sedated mumble some words. HEENT: Head atraumatic, normocephalic, EOMI, PERRL, absent ear discharge or trauma, Moist Mucous Membranes, uvula midline Neck: nontender to palpation, absent lymphadenopathy, Cardiovascualr: Regular rate and rhythm with no murmur, absent gallops or rubs, absent pedal edema, radial pulses 2 out of 4 Lungs: Clear to auscultation bilaterally, not in respiratory distress Abdomen: Soft nontender, nondistended positive bowel sounds, Skin: Incision on the lower back intact without any erythema or drainage. MSK: absent clubbing, cyanosis, joints without swelling Neuro: Cranial nerves II through XII intact, UE and LE sensation equal bilaterally, UE strength 5/5 and LEstrength 4/5, alert oriented 3, Psych: good insight and judgment - Assessment and Plan (1) Postoperative pain after spinal surgery Current Visit: Yes Status: Acute Assessment and Plan: Patient was evaluated by spinal surgery who stay patient will only need pain control and his pain is normal postoperative status. Physical therapy and occupational therapy is consulted and requests SNIF placement. Patient appears sedated on the medications he is on including Flexeril, Valium, gabapentin, oxycodone. We will decrease Valium to 2.5 mg. (2) CAD (coronary artery disease) Current Visit: Yes Status: Acute Assessment and Plan: Patient has a history of coronary artery disease Had a left heart catheterization in 2014 with severe 1 vessel coronary artery disease in small nondominant RCA. He did not have any stents placed at that time. He denies chest pain Continue aspirin, statin, lisinopril. (3) COPD (chronic obstructive pulmonary disease) Current Visit: Yes Status: Acute Assessment and Plan: History of COPD not an acute exacerbation Patient is on 3 L oxygen which he states he is home. Continue Symbicort, DuoNeb as needed, Flonase, Spiriva (4) DM (diabetes mellitus), type 2 Current Visit: Yes Status: Chronic Assessment and Plan: Patient has a history of insulin-dependent type 2 diabetes mellitus Last hemoglobin A1c was 7.6 Continue sliding scale insulin and diabetic diet (5) Hypertension Current Visit: Yes Status: Chronic Assessment and Plan: Controlled continue lisinopril (6) BARTOLO (obstructive sleep apnea) Current Visit: Yes Status: Chronic Assessment and Plan: CPAP at night (7) Tobacco abuse Current Visit: Yes Status: Chronic Assessment and Plan: Educated on smoking cessation DVT Prophylaxis: Heparin subcutaneous - Time Spent with Patient Total time spent is greater than 50% in coordination of care (as documented) at patient's floor/unit and/or counseling patient: Internal Medicine: Result - Labs CBC & Chem 7: 01/08/19 03:19 01/07/19 06:00 Labs: Short CBC 01/08/19 Range/Units 03:19 WBC 17.3 H (4.3-11.1) K/mcL Hgb 14.3 (12.9-16.9) g/dL Hct 44.3 (37.5-50.1) % Plt Count 229 (140-400) K/mcL Neutrophils # 14.5 H (1.6-8.9) K/mcL - ABG Interpretation ABG results: PT/INR, D-dimer PT 11.8 Seconds (9.4-12.1) 01/07/19 06:00 - Impressions Impressions Chest X-Ray 01/07/19 14:11 IMPRESSION: Diffuse increased interstitial opacities may represent mild pulmonary edema or interstitial pneumonitis. Mild cardiomegaly. D/ / Nicholas Jones MD / Nicholas Jones MD Interpreting Provider: Nicholas Jones MD Consult Discharge Plan - Plan Referrals: Emigdio garcia MD [Primary Care Provider] - <Liya Cifuentes - Last Filed: 01/08/19 11:57> Hospitalist Progress Note - Encounter Date of Encounter: 01/08/19 - Exam Vitals: Temp Pulse Resp BP Pulse Ox 97.9 F 93 18 122/68 91 01/08/19 10:29 01/08/19 10:29 01/08/19 10:29 01/08/19 10:29 01/08/19 10:29 - Assessment and Plan (1) COPD (chronic obstructive pulmonary disease) Current Visit: Yes Status: Acute (2) DM (diabetes mellitus), type 2 Current Visit: Yes Status: Chronic (3) DVT prophylaxis Current Visit: No Status: Acute (4) Hypertension Current Visit: Yes Status: Chronic (5) Postoperative pain after spinal surgery Current Visit: Yes Status: Acute (6) Decreased ambulation status Current Visit: Yes Status: Acute (7) Leukocytosis Current Visit: Yes Status: Acute (8) Obesity (BMI 30.0-34.9) Current Visit: Yes Status: Acute - Time Spent with Patient Total time spent is greater than 50% in coordination of care (as documented) at patient's floor/unit and/or counseling patient: Internal Medicine: Result - Labs CBC & Chem 7: 01/08/19 03:19 01/07/19 06:00 Labs: Short CBC 01/08/19 Range/Units 03:19 WBC 17.3 H (4.3-11.1) K/mcL Hgb 14.3 (12.9-16.9) g/dL Hct 44.3 (37.5-50.1) % Plt Count 229 (140-400) K/mcL Neutrophils # 14.5 H (1.6-8.9) K/mcL Urine 01/08/19 Range/Units 11:15 Urine Color Yellow (Yellow) Urine Clarity Clear (Clear) Urine pH 6.0 (5.0-8.0) pH Units Ur Specific [place] 1.011 (1.010-1.025) Urine Protein 100 H (Neg-Trace) mg/dL Urine Glucose (UA) Normal (Normal) mg/dL - ABG Interpretation ABG results: PT/INR, D-dimer PT 11.8 Seconds (9.4-12.1) 01/07/19 06:00 - Impressions Impressions Chest X-Ray 01/07/19 14:11 IMPRESSION: Diffuse increased interstitial opacities may represent mild pulmonary edema or interstitial pneumonitis. Mild cardiomegaly. D/ / Nicholas Jones MD / Nicholas Jones MD Interpreting Provider: Nicholas Jones MD - Attending Attestation I examined this patient and my medical decision-making was reviewed with the Resident Physician Dr Padilla. I agree with the documented findings, disposition and treatment plan as described except to the extent set forth below. Mr Sutherland is being observed for post operative back pain in chair at bedside, somnolent and comfortable appearing. Ortho PA and RN at bedside as well. Pt falls back to sleep and states it's because he didn't sleep all night due to pain. He is comfortable at this time and drowsy from meds. He was up most of night and at times yelling/screaming at staff for pain meds and valium. He was noted to have sputum/cough and require o2 overnight. Pt does not feel he is in copd exacerbation, states uses o2 at home when he needs and he just wants it now. Denies cough, wheezing, chest tightness, fevers or chills. gen- drowsy, appears stated age, nad eyes- pupils equal round cv- reg rate and rhythm, normal s1,s2, no murmurs appreciated, no le edema lungs- ctabl, no wheezing, rhonchi or crackles, diminished bl bases abd- soft, non tender, non distended, + bs neuro- AAOx3 Post operative Back pain- s/p L3-L5 laminectomy 01/05 -appreciate ortho input, appears to be standard post op pain -rec is for muscle relaxer, valium, PO pain meds and nsaid (given we confirmed with his pcp that he DOES have HFpEF- nsaid discontinued) -pt/ot- rec for snf-sw assisting Leukocytosis, may be reactive from surgery Wound not infected as d/w Ortho -UA pending, CXR reviewed, cannot rule out pneumonitis, no pna noted -given clinically he denies any symptoms of infection, hold on abx, repeat cbc in am, monitor for fever, monitor for cough/sputum production COPD confirmed with pcp is to wear continuous O2 NC 2.5 L daily at home, which pt does not do -resume home med regimen, incentive spirometry -monitor for s/s of COPDE, o2 requirement chronic HFpEF, appears euvolemic -resume home med regimen including diuretics further diagnoses and plan as noted by resident <Samuel Padilla - Last Filed: 01/08/19 09:52> (2) CAD (coronary artery disease) Qualifiers: Coronary Disease-Associated Artery/Lesion type: [place] artery [place] vs. transplanted heart: [place] heart Associated angina: without angina Qualified Code(s): I25.10 - Atherosclerotic heart disease of [place] coronary artery without angina pectoris (3) COPD (chronic obstructive pulmonary disease) Qualifiers: COPD type: chronic bronchitis Chronic bronchitis type: simple Qualified Code(s): J41.0 - Simple chronic bronchitis (4) DM (diabetes mellitus), type 2 Qualifiers: Diabetes mellitus fci insulin use: with fci use Diabetes mellitus complication status: with hyperglycemia Qualified Code(s): E11.65 - Type 2 diabetes mellitus with hyperglycemia; Z79.4 - sheriffs officer (current) use of insulin (5) Hypertension Qualifiers: Hypertension type: essential hypertension Qualified Code(s): I10 - Essential (primary) hypertension <Liya Cifuentes - Last Filed: 01/08/19 11:57> (1) COPD (chronic obstructive pulmonary disease) Qualifiers: COPD type: chronic bronchitis Chronic bronchitis type: simple Qualified Code(s): J41.0 - Simple chronic bronchitis (2) DM (diabetes mellitus), type 2 Qualifiers: Diabetes mellitus digital developer insulin use: with fci use Diabetes mellitus complication status: with hyperglycemia Qualified Code(s): E11.65 - Type 2 diabetes mellitus with hyperglycemia; Z79.4 - sheriffs officer (current) use of insulin (4) Hypertension Qualifiers: Hypertension type: essential hypertension Qualified Code(s): I10 - Essential (primary) hypertension (7) Leukocytosis Qualifiers: Leukocytosis type: unspecified Qualified Code(s): D72.829 - Elevated white blood cell count, unspecified
[2019-01-08] MEDS ORDERED: diazePAM 5 MG TABLET PO PRN (09:56)
[2019-01-08] MEDS: Insulin DETEMIR 100 UNIT/ML X5UNITS SQ SCH ×2 (10:06→20:53)
[2019-01-08] MEDS: Fluticasone Propionate Nasal 50 MCG/SPRAY BOTTLE NS SCH (10:07)
[2019-01-08] MEDS ORDERED: Acetaminophen IV 1,000 MG/100 ML INFUS..BTL IVPB ONE ×2 (10:30→11:30)
[2019-01-08] MEDS ORDERED: Acetaminophen 325 MG TABLET PO PRN (10:31)
[2019-01-08] MEDS ORDERED: Furosemide 20 MG TABLET PO ONE (11:23)
[2019-01-08 11:33] LABS: Bilirubin,Urine Negative (Negative); Blood,Urine Negative (Negative); Clarity,Urine Clear (Clear); Color,Urine Yellow (Yellow); Glucose,Urine (UA) Normal (Normal); Ketones,Urine Trace mg/dL (Negative); Leukocyte Esterase,Urine Negative (Negative); Nitrite,Urine Negative (Negative); Protein,Urine 100 mg/dL (Neg-Trace); Specific Gravity,Urine 1.011 (1.010-1.025); Urobilinogen,Urine Normal (Normal)
[2019-01-08 11:36] LABS: Bacteria,Urine None Seen per hpf (None-Few); Hyaline Casts,Urine None Seen per lpf (None-Few); RBC,Urine 0-3 per hpf (0-3); Squamous Epithelial Cell,Urine Few per lpf (None-Few); WBC,Urine 0-3 per hpf (0-3)
--- NOTE | 2019-01-08 17:16 | Orthopedics Progress Note ---
Date of Encounter: 01/08/19 Time of Encounter: 09:10 - Assessment and Plan (1) Postoperative pain after spinal surgery Current Visit: Yes Status: Acute (2) Status post laminectomy Current Visit: No Status: Acute (3) Muscle spasm Current Visit: Yes Status: Acute Subjective Principal diagnosis: low back/buttock pain Interval history: Patient continues to be in pain despite significant medication administration. patient noted on NOV to have Oxycodone SL, Flexeril, Valium, and Gabapentin. Notably absent are anti-inflammatory medications. Patient seen with Dr. Castillo. Patient noted to be sitting in wheelchair at bedside. O2 via NC set to 3 L. Patient slurring speech and drifting off whiles speaking. Muscle tenseness noted to b/l LE. No calf tenderness to palpation. Neurovascularly intact with full motion b/l LE. No focal motor deficit noted. Dressing noted c/d/i by nursing - states just changed dressing this morning. Discussed with Dr. Castillo regarding pain control. Patient had been on IV Morphine - transitioned to sublingual. Discussed adding NSAID like Celebrex if risk appropriate PPI for NSAID prophylaxis use Will order change in med for Oxycodone as well. Patient needs to participate with PT/OT as patient is sitting tensed in position and appears to be having significant muscle spasm which are known to occur fol lowing this type of surgery. Case discussed with Dr. Blum Continue postoperative restrictions Encourage PT/OT participation Further pain medication regimen at discretion of hospitalist team Keep incision covered with clean gauze and Medipore tape during inpatient stay. Objective Vital signs: Vital Signs Temp Pulse Resp BP Pulse Ox 01/08/19 15:37 98.0 F 79 18 126/67 92 01/08/19 10:29 97.9 F 93 18 122/68 91 01/08/19 08:00 97.7 F 86 16 135/67 93 01/08/19 07:41 18 93 01/08/19 07:30 98.2 F 73 131/68 93 01/08/19 04:03 98.3 F 81 18 118/64 94 01/08/19 00:25 98.3 F 86 18 179/80 94 01/07/19 21:42 93 01/07/19 21:12 16 94 01/07/19 18:55 97.9 F 72 18 121/73 93 Intake and Output 01/08/19 01/08/19 01/08/19 07:59 15:59 23:59 Intake Total 570 / 570 Output Total 800 / 1250 450 / 1250 Balance -800 / -680 120 / -680 Intake: IV Fluids 100 / 100 Ofirmev 1,000 mg/100 ml 1,000 100 / 100 mg In 100 ml @ 400 mls/hr IVPB ONCE ONE Rx#:[id number] Oral 120 / 120 Free Water 350 / 350 Output: Urine 800 / 1250 450 / 1250 Other: Meal Lunch Percent of Meal Consumed 100% # Voids 1 Blood Glucose* 146 210 - Labs CBC & BMP: 01/08/19 03:19 01/07/19 06:00 Labs: Abnormal lab results WBC 17.3 K/mcL (4.3-11.1) H 01/08/19 03:19 MPV 9.2 fL (9.4-12.4) L 01/07/19 06:00 14.5 K/mcL (1.6-8.9) H 01/08/19 03:19 1.8 K/mcL (0.0-1.3) H 01/08/19 03:19 APTT 39.5 Seconds (26.0-36.0) H 01/07/19 06:00 Sodium 134 mEq/L (136-145) L 01/07/19 06:00 Chloride 96 mEq/L (98-107) L 01/07/19 06:00 Carbon Dioxide 31 mEq/L (23-29) H 01/07/19 06:00 BUN 31 mg/dL (8-23) H 01/07/19 06:00 Glucose 154 mg/dL (70-105) H 01/07/19 06:00 POC Glucose 210 mg/dL (70-99) H 01/08/19 11:10 100 mg/dL (Neg-Trace) H 01/08/19 11:15 Trace mg/dL (Negative) H 01/08/19 11:15 Consult Discharge Plan - Plan Referrals: An,Emigdio Hutchins MD [Primary Care Provider] -
[2019-01-08] MEDS: *HR* OxyCODONE Immed Rel 5 MG TABLET PO PRN (20:52)
[2019-01-08] MEDS ORDERED: Celecoxib 100 MG CAPSULE PO SCH (21:00)
[2019-01-09] MEDS: *HR* OxyCODONE Immed Rel 5 MG TABLET PO PRN ×4 (00:51→17:47)
[2019-01-09 05:49] LABS: Basophils % 0.2 %; Eosinophils # 0.1 K/mcL (0.0-0.6); Eosinophils % 0.7 %; Hematocrit 43.9 % (37.5-50.1); Hemoglobin 14.1 g/dL (12.9-16.9); Immature Granulocytes % 0.6 % (0-4); Lymphocytes # 1.6 K/mcL (0.6-4.6); Lymphocytes % 11.7 %; Mean Corpuscular HGB Conc 32.1 g/dL (31.6-35.5); Mean Corpuscular Hemoglobin 29.6 pg (28.0-33.3); Mean Corpuscular Volume 92.2 fL (83.0-100.0); Mean Platelet Volume 9.6 fL (9.4-12.4); Monocytes # 1.3 K/mcL (0.0-1.3); Monocytes % 9.6 %; Neutrophils # 10.6 K/mcL (1.6-8.9); Platelet Count 240 K/mcL (140-400); Red Blood Count 4.76 M/mcL (4.19-5.50); Red Cell Distribution Width 12.6 % (11.5-14.5); Segmented Neutrophils % 77.2 %
[2019-01-09 06:02] LABS: BUN/Creatinine Ratio 43 (6-26); Blood Urea Nitrogen 49 mg/dL (8-23); Calcium 9.9 mg/dL (8.6-10.3); Carbon Dioxide 32 mEq/L (23-29); Chloride 96 mEq/L (98-107); Glucose 127 mg/dL (70-105); Osmolality,Calculated 295 (280-300); Potassium 4.2 mEq/L (3.5-5.1); Sodium 135 mEq/L (136-145); eGFR For Non-African Americans > 60 (> 60)
[2019-01-09] MEDS: *HR* Heparin 5,000 UNIT/ML VIAL SQ SCH ×3 (08:08→20:52)
[2019-01-09] MEDS: Sennosides 8.6 MG TABLET PO SCH (08:39)
[2019-01-09] MEDS: Furosemide 20 MG TABLET PO SCH (08:39)
[2019-01-09] MEDS: Gabapentin 400 MG CAPSULE PO SCH ×3 (08:40→20:06)
[2019-01-09] MEDS: metOLazone 5 MG TABLET PO SCH (08:40)
[2019-01-09] MEDS: Insulin DETEMIR 100 UNIT/ML X5UNITS SQ SCH ×2 (08:42→20:06)
[2019-01-09] MEDS: Aspirin Enteric Coated 81 MG Tablet PO SCH (08:42)
[2019-01-09] MEDS: Fluticasone Propionate Nasal 50 MCG/SPRAY BOTTLE NS SCH (08:43)
--- NOTE | 2019-01-09 09:48 | Internal Med Progress Note ---
<Samuel Padilla - Last Filed: 01/09/19 09:45> Hospitalist Progress Note - Encounter Date of Encounter: 01/09/19 Time of Encounter: 09:45 - Subjective Interval History: Patient denies any complaints. He reports he does not want to go because a lot of his family members have . - Exam Vitals: Temp Pulse Resp BP Pulse Ox 98.5 F 96 20 139/75 90 01/09/19 08:00 01/09/19 08:00 01/09/19 08:00 01/09/19 08:00 01/09/19 08:00 Exam: General: pleasant, without distress, appears sedated mumble some words. Cardiovascualr: Regular rate and rhythm with no murmur, absent gallops or rubs, absent pedal edema, radial pulses 2 out of 4 Lungs: Bilateral wheezing, not in respiratory distress Abdomen: Soft nontender, nondistended positive bowel sounds, Skin: Incision on the lower back intact without any erythema or drainage. MSK: absent clubbing, cyanosis, joints without swelling Neuro: Cranial nerves II through XII intact, UE and LE sensation equal bilaterally, UE strength 5/5 and LEstrength 4/5, alert oriented 3, Psych: good insight and judgment - Assessment and Plan (1) COPD (chronic obstructive pulmonary disease) Current Visit: Yes Status: Acute Assessment and Plan: History of COPD We will call this acute exacerbation as he has had hypoxia, increased sputum production and patient's bicarbonate is elevated noting a metabolic alkalosis likely secondary respiratory acidosis. We will start patient on present 40 mg and Levaquin 750 mg daily for 3 days. Continue Symbicort, DuoNeb as needed, Flonase, Spiriva (2) Postoperative pain after spinal surgery Current Visit: Yes Status: Acute Assessment and Plan: Postoperative back pain secondary to L3 L5 laminectomy on 01/05 We will continue Valium, Flexeril, gabapentin, Roxicodone. Continue senna, docusate for bowel regimen (3) CAD (coronary artery disease) Current Visit: Yes Status: Acute Assessment and Plan: Patient has a history of coronary artery disease Had a left heart catheterization in 2014 with severe 1 vessel coronary artery disease in small nondominant RCA. He did not have any stents placed at that time. He denies chest pain Continue aspirin, statin, lisinopril. (4) DM (diabetes mellitus), type 2 Current Visit: Yes Status: Chronic Assessment and Plan: Patient has a history of insulin-dependent type 2 diabetes mellitus Last hemoglobin A1c was 7.6 Continue sliding scale insulin and diabetic diet (5) Hypertension Current Visit: Yes Status: Chronic Assessment and Plan: Controlled continue lisinopril (6) BARTOLO (obstructive sleep apnea) Current Visit: Yes Status: Chronic Assessment and Plan: CPAP at night (7) Tobacco abuse Current Visit: Yes Status: Chronic DVT Prophylaxis: Heparin subcutaneous - Time Spent with Patient Total time spent is greater than 50% in coordination of care (as documented) at patient's floor/unit and/or counseling patient: Internal Medicine: Result - Labs CBC & Chem 7: 01/09/19 05:24 01/09/19 05:24 Labs: Short CBC 01/09/19 Range/Units 05:24 WBC 13.7 H (4.3-11.1) K/mcL Hgb 14.1 (12.9-16.9) g/dL Hct 43.9 (37.5-50.1) % Plt Count 240 (140-400) K/mcL Neutrophils # 10.6 H (1.6-8.9) K/mcL BMP 01/09/19 05:24 Sodium 135 L Potassium 4.2 Chloride 96 L Carbon Dioxide 32 H BUN 49 H Creatinine 1.15 Glucose 127 H Calcium 9.9 Urine 01/08/19 Range/Units 11:15 Urine Color Yellow (Yellow) Urine Clarity Clear (Clear) Urine pH 6.0 (5.0-8.0) pH Units Ur Specific [place] 1.011 (1.010-1.025) Urine Protein 100 H (Neg-Trace) mg/dL Urine Glucose (UA) Normal (Normal) mg/dL - ABG Interpretation ABG results: PT/INR, D-dimer PT 11.8 Seconds (9.4-12.1) 01/07/19 06:00 Consult Discharge Plan - Plan Referrals: Emigdio Nolan MD [Primary Care Provider] - <Liya Cifuentes - Last Filed: 01/09/19 10:02> Hospitalist Progress Note - Encounter Date of Encounter: 01/09/19 - Exam Vitals: Temp Pulse Resp BP Pulse Ox 98.5 F 96 20 139/75 90 01/09/19 08:00 01/09/19 08:00 01/09/19 08:00 01/09/19 08:00 01/09/19 08:00 - Assessment and Plan (1) COPD (chronic obstructive pulmonary disease) Current Visit: Yes Status: Acute (2) DM (diabetes mellitus), type 2 Current Visit: Yes Status: Chronic (3) DVT prophylaxis Current Visit: No Status: Acute (4) Hypertension Current Visit: Yes Status: Chronic (5) Postoperative pain after spinal surgery Current Visit: Yes Status: Acute (6) Decreased ambulation status Current Visit: Yes Status: Acute (7) Leukocytosis Current Visit: Yes Status: Acute (8) Obesity (BMI 30.0-34.9) Current Visit: Yes Status: Acute - Time Spent with Patient Total time spent is greater than 50% in coordination of care (as documented) at patient's floor/unit and/or counseling patient: Internal Medicine: Result - Labs CBC & Chem 7: 01/09/19 05:24 01/09/19 05:24 Labs: Short CBC 01/09/19 Range/Units 05:24 WBC 13.7 H (4.3-11.1) K/mcL Hgb 14.1 (12.9-16.9) g/dL Hct 43.9 (37.5-50.1) % Plt Count 240 (140-400) K/mcL Neutrophils # 10.6 H (1.6-8.9) K/mcL BMP 01/09/19 05:24 Sodium 135 L Potassium 4.2 Chloride 96 L Carbon Dioxide 32 H BUN 49 H Creatinine 1.15 Glucose 127 H Calcium 9.9 Urine 01/08/19 Range/Units 11:15 Urine Color Yellow (Yellow) Urine Clarity Clear (Clear) Urine pH 6.0 (5.0-8.0) pH Units Ur Specific [place] 1.011 (1.010-1.025) Urine Protein 100 H (Neg-Trace) mg/dL Urine Glucose (UA) Normal (Normal) mg/dL - ABG Interpretation ABG results: PT/INR, D-dimer PT 11.8 Seconds (9.4-12.1) 01/07/19 06:00 - Attending Attestation I examined this patient and my medical decision-making was reviewed with the Resident Physician Dr Padilla. I agree with the documented findings, disposition and treatment plan as described except to the extent set forth below. Mr Sutherland is being observed for post operative back pain in bed, awake, had low o2 sats overnight. he denies sob on o2 nc currently. + cough with sputum, visualized and yellow. he denies fevers, chills, wheezing. he minimes resp status noting he always has morning cough with yellow sputum that clears later in day and he is not sob (though he doesn't routinely wear o2 nc at home) gen- awake, alert, appears stated age, nad cv- reg rate and rhythm, normal s1,s2, no murmurs appreciated, no le edema lungs- ctabl, no wheezing, rhonchi or crackles, diminished bl bases abd- soft, non tender, non distended, + bs neuro- AAOx3 Post operative Back pain- s/p L3-L5 laminectomy 01/05 -appreciate ortho input, appears to be standard post op pain -rec is for muscle relaxer, valium, PO pain meds and nsaid (given we confirmed with his pcp that he DOES have HFpEF- nsaid discontinued) -pt/ot- rec for snf-sw assisting Leukocytosis, may be reactive from surgery, but suspect COPDE and contributing, improved without abx but persists Wound not infected as d/w Ortho -treatment as below COPDE confirmed with pcp is to wear continuous O2 NC 2.5 L daily at home, which pt does not do -resume home med regimen, incentive spirometry -levaquin, + steroids chronic HFpEF, appears euvolemic - home med regimen including diuretics HTN, with low/normotensive BPs this morning 90s-108/50s- hold parameters for sbp <110 onn pain meds, hold am acei, trend bp further diagnoses and plan as noted by resident <Samuel Padillashilpajong - Last Filed: 01/09/19 09:45> (1) COPD (chronic obstructive pulmonary disease) Qualifiers: COPD type: chronic bronchitis Chronic bronchitis type: simple Qualified Code(s): J41.0 - Simple chronic bronchitis (3) CAD (coronary artery disease) Qualifiers: Coronary Disease-Associated Artery/Lesion type: [place] artery [place] vs. transplanted heart: [place] heart Associated angina: without angina Qualified Code(s): I25.10 - Atherosclerotic heart disease of [place] coronary artery without angina pectoris (4) DM (diabetes mellitus), type 2 Qualifiers: Diabetes mellitus senior living insulin use: with senior living use Diabetes mellitus complication status: with hyperglycemia Qualified Code(s): E11.65 - Type 2 diabetes mellitus with hyperglycemia; Z79.4 - senior care (current) use of insulin (5) Hypertension Qualifiers: Hypertension type: essential hypertension Qualified Code(s): I10 - Essential (primary) hypertension <Liya Cifuentes - Last Filed: 01/09/19 10:02> (1) COPD (chronic obstructive pulmonary disease) Qualifiers: COPD type: chronic bronchitis Chronic bronchitis type: simple Qualified Code(s): J41.0 - Simple chronic bronchitis (2) DM (diabetes mellitus), type 2 Qualifiers: Diabetes mellitus senior living insulin use: with senior living use Diabetes mellitus complication status: with hyperglycemia Qualified Code(s): E11.65 - Type 2 diabetes mellitus with hyperglycemia; Z79.4 - senior care (current) use of insulin (4) Hypertension Qualifiers: Hypertension type: essential hypertension Qualified Code(s): I10 - Essential (primary) hypertension (7) Leukocytosis Qualifiers: Leukocytosis type: unspecified Qualified Code(s): D72.829 - Elevated white blood cell count, unspecified
[2019-01-09] MEDS: Tiotropium 18 MCG inhalation IH SCH (10:52)
[2019-01-09] MEDS: Budesonide/Formoterol 160/4.5 1 PUFF INH IH SCH ×2 (10:52→20:38)
[2019-01-09] MEDS: Insulin LISPRO 300 UNITS/3 ML VIAL SQ SCH ×3 (12:01→17:47)
[2019-01-09] MEDS: predniSONE 20 MG TABLET PO SCH (12:03)
[2019-01-09] MEDS: Levofloxacin 750 MG/150 ML 750 MG/150 ML BAG IVPB SCH (12:03)
--- NOTE | 2019-01-09 16:13 | Electrocardiograph Report ---
[place] [id number] Test Date: 2019-01-07 Pat Name: Chay Sutherland Department: [id number] Room: [facility] Gender: M Compensation [employer] Benefits Analyst: : 1950 Requested By: Suhas Sellers Order Number: [id number] Reading MD: Yojana Lee Measurements Intervals [place] Rate: 73 P: 72 GA: 166 QRS: 56 QRSD: 121 T: 51 QT: 363 QTc: 400 Interpretive Statements Sinus rhythm Probable left atrial enlargement Nonspecific intraventricular conduction delay Baseline wander Electronically Signed On 01-09-2019 16:12:17 EDT by Yojana Lee
[2019-01-09] MEDS: Nicotine 7 MG PATCH.TD24 TD SCH (20:52)
[2019-01-10] MEDS: *HR* OxyCODONE Immed Rel 5 MG TABLET PO PRN ×4 (00:15→22:35)
[2019-01-10] MEDS: *HR* Heparin 5,000 UNIT/ML VIAL SQ SCH ×3 (06:06→22:09)
[2019-01-10 07:45] LABS: Basophils % 0.2 %; Eosinophils % 0.3 %; Hematocrit 40.7 % (37.5-50.1); Hemoglobin 13.3 g/dL (12.9-16.9); Immature Granulocytes % 0.5 % (0-4); Lymphocytes # 1.2 K/mcL (0.6-4.6); Lymphocytes % 11.2 %; Mean Corpuscular HGB Conc 32.7 g/dL (31.6-35.5); Mean Corpuscular Hemoglobin 29.6 pg (28.0-33.3); Mean Corpuscular Volume 90.4 fL (83.0-100.0); Mean Platelet Volume 9.8 fL (9.4-12.4); Monocytes % 9.2 %; Neutrophils # 8.6 K/mcL (1.6-8.9); Platelet Count 258 K/mcL (140-400); Red Cell Distribution Width 12.3 % (11.5-14.5); Segmented Neutrophils % 78.6 %
[2019-01-10] MEDS: Fluticasone Propionate Nasal 50 MCG/SPRAY BOTTLE NS SCH (07:49)
[2019-01-10] MEDS: Insulin LISPRO 300 UNITS/3 ML VIAL SQ SCH ×3 (07:49→17:16)
[2019-01-10] MEDS: Nicotine 7 MG PATCH.TD24 TD SCH (07:50)
[2019-01-10] MEDS: Sennosides 8.6 MG TABLET PO SCH (07:50)
[2019-01-10] MEDS: Insulin DETEMIR 100 UNIT/ML X5UNITS SQ SCH ×2 (07:50→22:09)
[2019-01-10] MEDS: metOLazone 5 MG TABLET PO SCH (07:50)
[2019-01-10] MEDS: Levofloxacin 750 MG/150 ML 750 MG/150 ML BAG IVPB SCH (07:50)
[2019-01-10] MEDS: predniSONE 20 MG TABLET PO SCH (07:51)
[2019-01-10] MEDS: Gabapentin 400 MG CAPSULE PO SCH ×3 (07:51→22:09)
[2019-01-10] MEDS: Furosemide 20 MG TABLET PO SCH (07:51)
[2019-01-10] MEDS: Aspirin Enteric Coated 81 MG Tablet PO SCH (07:51)
[2019-01-10 08:04] LABS: BUN/Creatinine Ratio 45 (6-26); Blood Urea Nitrogen 47 mg/dL (8-23); Calcium 9.9 mg/dL (8.6-10.3); Carbon Dioxide 31 mEq/L (23-29); Chloride 95 mEq/L (98-107); Glucose 232 mg/dL (70-105); Osmolality,Calculated 296 (280-300); Potassium 4.5 mEq/L (3.5-5.1); Sodium 133 mEq/L (136-145); eGFR For Non-African Americans > 60 (> 60)
[2019-01-10] MEDS: Budesonide/Formoterol 160/4.5 1 PUFF INH IH SCH ×2 (08:07→20:22)
[2019-01-10] MEDS: Tiotropium 18 MCG inhalation IH SCH (08:07)
--- NOTE | 2019-01-10 08:11 | Internal Med Progress Note ---
Hospitalist Progress Note - Encounter Date of Encounter: 01/10/19 - Exam Vitals: Temp Pulse Resp BP Pulse Ox 97.9 F 68 18 120/67 96 01/10/19 07:05 01/10/19 07:05 01/10/19 07:05 01/10/19 07:05 01/10/19 08:07 - Assessment and Plan (1) COPD (chronic obstructive pulmonary disease) Current Visit: Yes Status: Acute (2) DM (diabetes mellitus), type 2 Current Visit: Yes Status: Chronic (3) DVT prophylaxis Current Visit: No Status: Acute (4) Hypertension Current Visit: Yes Status: Chronic (5) Postoperative pain after spinal surgery Current Visit: Yes Status: Acute (6) Decreased ambulation status Current Visit: Yes Status: Acute (7) Leukocytosis Current Visit: Yes Status: Acute (8) Obesity (BMI 30.0-34.9) Current Visit: Yes Status: Acute - Time Spent with Patient Total time spent is greater than 50% in coordination of care (as documented) at patient's floor/unit and/or counseling patient: Internal Medicine: Result - Labs CBC & Chem 7: 01/10/19 07:00 01/10/19 07:00 Labs: Short CBC 01/10/19 Range/Units 07:00 WBC 10.9 (4.3-11.1) K/mcL Hgb 13.3 (12.9-16.9) g/dL Hct 40.7 (37.5-50.1) % Plt Count 258 (140-400) K/mcL Neutrophils # 8.6 (1.6-8.9) K/mcL BMP 01/10/19 07:00 Sodium 133 L Potassium 4.5 Chloride 95 L Carbon Dioxide 31 H BUN 47 H Creatinine 1.04 Glucose 232 H Calcium 9.9 - ABG Interpretation ABG results: PT/INR, D-dimer PT 11.8 Seconds (9.4-12.1) 01/07/19 06:00 Consult Discharge Plan - Plan Referrals: Emigdio Nolan MD [Primary Care Provider] - (1) COPD (chronic obstructive pulmonary disease) Qualifiers: COPD type: chronic bronchitis Chronic bronchitis type: simple Qualified Code(s): J41.0 - Simple chronic bronchitis (2) DM (diabetes mellitus), type 2 Qualifiers: Diabetes mellitus rn long term care insulin use: with half-way use Diabetes mellitus complication status: with hyperglycemia Qualified Code(s): E11.65 - Type 2 diabetes mellitus with hyperglycemia; Z79.4 - halfway (current) use of insulin (4) Hypertension Qualifiers: Hypertension type: essential hypertension Qualified Code(s): I10 - Essential (primary) hypertension (7) Leukocytosis Qualifiers: Leukocytosis type: unspecified Qualified Code(s): D72.829 - Elevated white blood cell count, unspecified
--- NOTE | 2019-01-10 11:49 | Discharge Summary ---
- NOTES TO OUTPATIENT PROVIDER Notes to Outpatient Provider: sent with three days of pain medication and ortho recommended muscle relaxer and valium. Needs to fu with PCP and Dr Blum. 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: with dedicated intermodal truck driver use Diabetes mellitus complication status: with hyperglycemia Qualified Code(s): E11.65 - Type 2 diabetes mellitus with hyperglycemia; Z79.4 - dedicated intermodal truck driver (current) use of insulin (3) DVT prophylaxis Priority: Secondary Status: Acute (4) Hypertension Priority: Secondary Status: Chronic Qualifiers: Hypertension type: essential hypertension Qualified Code(s): I10 - Essential (primary) hypertension (5) Postoperative pain after spinal surgery Priority: Primary Status: Resolved (6) Decreased ambulation status Priority: Secondary Status: Acute (7) Leukocytosis Priority: Secondary Status: Resolved Qualifiers: Leukocytosis type: unspecified Qualified Code(s): D72.829 - Elevated white blood cell count, unspecified (8) Obesity (BMI 30.0-34.9) Priority: Secondary Status: Chronic Hospital course: Mr. Sutherland is a 68 year old male Discharge discussed with: patient, social work Time spent discussing smoking cessation with patient: more than 10 minutes - Time Spent with Patient Total time spent providing and/or coordinating discharge services: Time spent: Greater than 30 minutes (40 min) - Discharge Medications Prescriptions: New Cyclobenzaprine [Flexeril] 10 mg PO TID PRN 3 Days #9 tablet PRN Reason: Spasms Nicotine Patch [Nicoderm] 7 mg TD DAILY #30 patch.td24 predniSONE [PredniSONE] 40 mg PO DAILY 3 Days #3 tablet OxyCODONE Immed Rel [Roxicodone 5 MG] 5 mg PO Q6HR PRN 3 Days #12 tablet PRN Reason: Severe Pain diazePAM [Valium] 2.5 mg PO Q8H PRN 3 Days #4 tablet PRN Reason: Spasms levoFLOXacin [Levaquin] 750 mg PO DAILY 1 Days #1 tablet Continued Albuterol Sulfate [Ventolin Hfa] 2 puff IH Q4H PRN PRN Reason: Shortness Of Breath Aspirin [Lo-Dose Aspirin EC] 81 mg PO DAILY Atorvastatin [Lipitor] 20 mg PO HS Budesonide/Formoterol 160/4.5 [Symbicort 160/4.5] 2 puff IH BIDR Cinnamon Bark [Cinnamon] 500 mg PO DAILY Fluticasone Propionate Nasal [Flonase] 1 spr NS DAILY Furosemide [Lasix] 20 mg PO DAILY Gabapentin 800 mg PO TID Glycopyrrolate/Formoterol Fum [Bevespi Aerosphere Inhaler] 2 puff IH BID Insulin DETEMIR [Levemir Flextouch] 62 unit SQ BID Ipratropium/Albuterol Neb [Duoneb] 3 ml IH Q6HR PRN PRN Reason: Shortness Of Breath Liraglutide [Victoza 2-Mychal] 1.2 mg SQ DAILY Lisinopril 2.5 mg PO DAILY Metformin HCl [Glucophage] 1,000 mg PO BID metOLazone [Zaroxolyn] 5 mg PO DAILY Timnath-3/Dha/Epa/Fish Oil [Fish Oil 1,000 mg Softgel] 1 cap PO DAILY Docusate Sodium [Colace] 100 mg PO BID 5 Days #10 capsule Discontinued OxyCODONE Immed Rel [Roxicodone 5 MG] 5 mg PO Q6HR PRN 5 Days #20 tablet PRN Reason: Severe Pain Home Medications: Albuterol Sulfate [Ventolin Hfa] 2 puff IH Q4H PRN 01/05/19 [History] Aspirin [Lo-Dose Aspirin EC] 81 mg PO DAILY 01/05/19 [History] Atorvastatin [Lipitor] 20 mg PO HS 01/05/19 [History] Budesonide/Formoterol 160/4.5 [Symbicort 160/4.5] 2 puff IH BIDR 01/05/19 [ History] Cinnamon Bark [Cinnamon] 500 mg PO DAILY 01/05/19 [History] Fluticasone Propionate Nasal [Flonase] 1 spr NS DAILY 01/05/19 [History] Furosemide [Lasix] 20 mg PO DAILY 01/05/19 [History] Gabapentin 800 mg PO TID 01/05/19 [History] Glycopyrrolate/Formoterol Fum [Bevespi Aerosphere Inhaler] 2 puff IH BID 01/05/19 [History] Insulin DETEMIR [Levemir Flextouch] 62 unit SQ BID 01/05/19 [History] Ipratropium/Albuterol Neb [Duoneb] 3 ml IH Q6HR PRN 01/05/19 [History] Liraglutide [Victoza 2-Mychal] 1.2 mg SQ DAILY 01/05/19 [History] Lisinopril 2.5 mg PO DAILY 01/05/19 [History] Metformin HCl [Glucophage] 1,000 mg PO BID 01/05/19 [History] Timnath-3/Dha/Epa/Fish Oil [Fish Oil 1,000 mg Softgel] 1 cap PO DAILY 01/05/19 [History] metOLazone [Zaroxolyn] 5 mg PO DAILY 01/05/19 [History] Docusate Sodium [Colace] 100 mg PO BID 5 Days #10 capsule 01/06/19 [Rx] Cyclobenzaprine [Flexeril] 10 mg PO TID PRN 3 Days #9 tablet 01/10/19 [Rx] Nicotine Patch [Nicoderm] 7 mg TD DAILY #30 patch.td24 01/10/19 [Rx] OxyCODONE Immed Rel [Roxicodone 5 MG] 5 mg PO Q6HR PRN 3 Days #12 tablet 01/10/19 [Rx] diazePAM [Valium] 2.5 mg PO Q8H PRN 3 Days #4 tablet 01/10/19 [Rx] levoFLOXacin [Levaquin] 750 mg PO DAILY 1 Days #1 tablet 01/10/19 [Rx] predniSONE [PredniSONE] 40 mg PO DAILY 3 Days #3 tablet 01/10/19 [Rx] Allergies/Adverse Reactions: Allergy/AdvReac Type Severity Reaction Status Date / Time sitagliptin [From Sepuv] AdvReac Gastrointestinal Verified 01/07/19 20:25 Upset Date of admission: 01/09/19 16:11 Primary care physician: Emigdio Nolan MD Consults: 01/07/19 04:35 Consult to Physician [CONS] Stat Consulting Provider: Jm Blum Jr Reason for Consult: post op laminectomy pain, decreased ambulation status Time Notified: 04:35 Call Completed: Yes 01/07/19 06:59 Consult to Nutrition [CONS] Routine Comment: Consulting Provider: NUTRITION Reason for Dietary Consult: Other 01/07/19 09:00 Consult to Occupational Therapy [CONS] Routine Comment: Evaluate, develop and implement POC Reason for Consult: Eval and treat Does patient have active BEDREST order?: No Is patient medically & hemodynamically stable?: Yes Consult to Physical Therapy [CONS] Routine Comment: Evaluate, develop and implement POC Reason for Consult: Eval and treat Does patient have active BEDREST order?: No Is patient medically & hemodynamically stable?: Yes Consult to Keyboard Action Assembler [CONS] Routine Reason for SW Consult: Discharge planning, readmission 01/07/19, discharged 01/06/19, unable to ambulate now. 01/07/19 10:03 Consult to Physical Therapy [CONS] Routine Comment: Evaluate, develop and implement POC Reason for Consult: dispostion Does patient have active BEDREST order?: No Is patient medically & hemodynamically stable?: Yes Patient assessed for mobility or mobilized this visit?: Yes OT [Consult to Occupational Therapy] [CONS] Routine Comment: Evaluate, develop and implement POC Reason for Consult: disposition Does patient have active BEDREST order?: No Is patient medically & hemodynamically stable?: Yes Patient assessed for mobility or mobilized this visit?: Yes Discharging clinician: Liya Cifuentes - Constitutional Vitals: Temp Pulse Resp BP Pulse Ox 97.7 F 72 18 129/67 95 01/10/19 10:21 01/10/19 10:21 01/10/19 10:21 01/10/19 10:21 01/10/19 10:21 - Patient Status Disposition: Home Health Service Condition: Good Functional capacity at discharge: uses cane/walker Overall status at discharge: patient is progressing back to baseline - Discharge Instructions Follow Up With: Emigdio Nolan MD [Primary Care Provider] -
--- NOTE | 2019-01-10 11:56 | Internal Med Progress Note ---
Hospitalist Progress Note - Encounter Date of Encounter: 01/10/19 Time of Encounter: 09:15 - Subjective Interval History: awake, joking and smiling, feeling "great and ready to go" and notes no pain as long as he has pain meds. States he's walking great and walked the stairs. denies sob, + chronic cough and sputum now white. no fevers or chills reviewed PT notes from last evening and pt still deemed unsafe with limited mobility in transfers and ambulating with walker. Rec remains SNF. Discussed with oncandrea Gutierrez and given such great safety concerns and pt still refusing placement, we will cont with PT/OT here this weekend, encourage increased activity when not working with pt (pt and rn aware and will work on this this ) and SW to contact [facility] agencies when they open saturday to assure [facility] agency feels comfortable with taking on pt and can arrange very close in home follow up. pt aware, tearful and understands. - Exam Vitals: Temp Pulse Resp BP Pulse Ox 97.7 F 72 18 129/67 95 01/10/19 10:21 01/10/19 10:21 01/10/19 10:21 01/10/19 10:21 01/10/19 10:21 Exam: gen- awake, alert, appears stated age, nad cv- reg rate and rhythm, normal s1,s2, no murmurs appreciated, no le edema lungs- ctabl, no wheezing, rhonchi or crackles, normal resp effort on o2 nc neuro- AAOx3 skin- spinal midline bandage clean, dry, intact - Assessment and Plan (1) COPD (chronic obstructive pulmonary disease) Current Visit: Yes Status: Chronic (2) DM (diabetes mellitus), type 2 Current Visit: Yes Status: Chronic (3) Hypertension Current Visit: Yes Status: Chronic (4) Postoperative pain after spinal surgery Current Visit: Yes Status: Resolved (5) Decreased ambulation status Current Visit: Yes Status: Acute (6) Leukocytosis Current Visit: Yes Status: Resolved (7) Obesity (BMI 30.0-34.9) Current Visit: Yes Status: Chronic - Summary of Assessment and Plan Summary of Assessment and Plan: Post operative Back pain- s/p L3-L5 laminectomy 01/05 -appreciate ortho input, appears to be standard post op pain -rec is for muscle relaxer, valium, PO pain meds and nsaid (given we confirmed with his pcp that he DOES have HFpEF- nsaid discontinued) -pt/ot- rec for snf-pt refuses -he requires continued pt/ot here and SW assisting to set up home health care and DME needs -there are great safety concerns based on his last pt evaluation and he is not safe to return to home at this time Leukocytosis, likely combination reactive from surgery + COPDE, resolved Wound not infected as d/w Ortho -treatment as below COPDE confirmed with pcp is to wear continuous O2 NC 2.5 L daily at home, which pt does not do -resume home med regimen, incentive spirometry -levaquin (last day is tomorrow), + steroids for 5d total chronic HFpEF, appears euvolemic - home med regimen including diuretics HTN, with normotensive BPs with holding home acei 2.5mg lisinipril daily, resume in am DM glucose is elevated here on reduced regimen levemir will likely require home regimen upon dc which is 62 units BID -SSI and adjustments daily as needed--increased to 33 units BID vte ppx sqh - Time Spent with Patient Total time spent is greater than 50% in coordination of care (as documented) at patient's floor/unit and/or counseling patient: 25 - 35 minutes Plan of Care Discussed with: patient Internal Medicine: Result - Labs CBC & Chem 7: 01/10/19 07:00 01/10/19 07:00 Labs: Short CBC 01/10/19 Range/Units 07:00 WBC 10.9 (4.3-11.1) K/mcL Hgb 13.3 (12.9-16.9) g/dL Hct 40.7 (37.5-50.1) % Plt Count 258 (140-400) K/mcL Neutrophils # 8.6 (1.6-8.9) K/mcL BMP 01/10/19 07:00 Sodium 133 L Potassium 4.5 Chloride 95 L Carbon Dioxide 31 H BUN 47 H Creatinine 1.04 Glucose 232 H Calcium 9.9 - ABG Interpretation ABG results: PT/INR, D-dimer PT 11.8 Seconds (9.4-12.1) 01/07/19 06:00 Consult Discharge Plan - Plan Referrals: An,Emigdio Hutchins MD [Primary Care Provider] - Prescriptions: Cyclobenzaprine [Flexeril] 10 mg PO TID PRN 3 Days #9 tablet PRN Reason: Spasms levoFLOXacin [Levaquin] 750 mg PO DAILY 1 Days #1 tablet Nicotine Patch [Nicoderm] 7 mg TD DAILY #30 patch.td24 predniSONE [PredniSONE] 40 mg PO DAILY 3 Days #3 tablet OxyCODONE Immed Rel [Roxicodone 5 MG] 5 mg PO Q6HR PRN 3 Days #12 tablet PRN Reason: Severe Pain diazePAM [Valium] 2.5 mg PO Q8H PRN 3 Days #4 tablet PRN Reason: Spasms (1) COPD (chronic obstructive pulmonary disease) Qualifiers: COPD type: chronic bronchitis Chronic bronchitis type: simple Qualified Code(s): J41.0 - Simple chronic bronchitis (2) DM (diabetes mellitus), type 2 Qualifiers: Diabetes mellitus termite control servicer insulin use: with termite control servicer use Diabetes mellitus complication status: with hyperglycemia Qualified Code(s): E11.65 - Type 2 diabetes mellitus with hyperglycemia; Z79.4 - terminal superintendent (current) use of insulin (3) Hypertension Qualifiers: Hypertension type: essential hypertension Qualified Code(s): I10 - Essential (primary) hypertension (6) Leukocytosis Qualifiers: Leukocytosis type: unspecified Qualified Code(s): D72.829 - Elevated white blood cell count, unspecified
[2019-01-11] MEDS: Insulin LISPRO 300 UNITS/3 ML VIAL SQ SCH ×5 (01:51→21:22)
[2019-01-11] MEDS: *HR* OxyCODONE Immed Rel 5 MG TABLET PO PRN ×3 (04:19→21:33)
[2019-01-11] MEDS: *HR* Heparin 5,000 UNIT/ML VIAL SQ SCH ×3 (06:19→21:21)
--- NOTE | 2019-01-11 08:33 | Internal Med Progress Note ---
Hospitalist Progress Note - Encounter Date of Encounter: 01/11/19 Time of Encounter: 09:30 - Subjective Interval History: awake, eating breakfast. no sob on o2 nc. cough improving. pain controlled. I discussed with PT, he will be seen for re eval tomorrow. Nursing staff present and will cont to work on ambulation/activity throughout day today - Exam Vitals: Temp Pulse Resp BP Pulse Ox 97.7 F 52 16 114/61 99 01/11/19 07:55 01/11/19 07:55 01/11/19 07:55 01/11/19 07:55 01/11/19 07:55 Exam: gen- awake, alert, appears stated age, cv- reg rate and rhythm, normal s1,s2, no le edema lungs- ctabl, no wheezing, rhonchi or crackles, normal resp effort on o2 nc neuro- AAOx3 - Assessment and Plan (1) COPD (chronic obstructive pulmonary disease) Current Visit: Yes Status: Chronic (2) DM (diabetes mellitus), type 2 Current Visit: Yes Status: Chronic (3) Hypertension Current Visit: Yes Status: Chronic (4) Postoperative pain after spinal surgery Current Visit: Yes Status: Resolved (5) Decreased ambulation status Current Visit: Yes Status: Acute (6) Leukocytosis Current Visit: Yes Status: Resolved (7) Obesity (BMI 30.0-34.9) Current Visit: Yes Status: Chronic - Summary of Assessment and Plan Summary of Assessment and Plan: Post operative Back pain- s/p L3-L5 laminectomy 01/05 -appreciate ortho input, appears to be standard post op pain -rec is for muscle relaxer, valium, PO pain meds and nsaid (given we confirmed with his pcp that he DOES have HFpEF- nsaid discontinued) -pt/ot- rec for snf-pt refuses -he requires continued pt/ot here and SW assisting to set up home health care and DME needs -there are great safety concerns based on his last pt evaluation and he is not safe to return to home at this time -next pt eval saturday Leukocytosis, likely combination reactive from surgery + COPDE, resolved Wound not infected as d/w Ortho -treatment as below COPDE confirmed with pcp is to wear continuous O2 NC 2.5 L daily at home, which pt does not do -resume home med regimen, incentive spirometry -levaquin will complete course 01/12, + steroids for 5d total chronic HFpEF, appears euvolemic - home med regimen including diuretics HTN, with normotensive BPs with holding home acei 2.5mg lisinipril daily, resume in am DM glucose is elevated here on reduced regimen levemir will likely require home regimen upon dc which is 62 units BID -SSI and adjustments daily as needed--increased to 46 units BID today vte ppx sqh - Time Spent with Patient Total time spent is greater than 50% in coordination of care (as documented) at patient's floor/unit and/or counseling patient: Plan of Care Discussed with: patient Internal Medicine: Result - Labs CBC & Chem 7: 01/10/19 07:00 01/10/19 07:00 - ABG Interpretation ABG results: PT/INR, D-dimer PT 11.8 Seconds (9.4-12.1) 01/07/19 06:00 Consult Discharge Plan - Plan Referrals: An,Emigdio Hutchins MD [Primary Care Provider] - Prescriptions: Cyclobenzaprine [Flexeril] 10 mg PO TID PRN 3 Days #9 tablet PRN Reason: Spasms Nicotine Patch [Nicoderm] 7 mg TD DAILY #30 patch.td24 predniSONE [PredniSONE] 40 mg PO DAILY 3 Days #3 tablet OxyCODONE Immed Rel [Roxicodone 5 MG] 5 mg PO Q6HR PRN 3 Days #12 tablet PRN Reason: Severe Pain diazePAM [Valium] 2.5 mg PO Q8H PRN 3 Days #4 tablet PRN Reason: Spasms (1) COPD (chronic obstructive pulmonary disease) Qualifiers: COPD type: chronic bronchitis Chronic bronchitis type: simple Qualified Code(s): J41.0 - Simple chronic bronchitis (2) DM (diabetes mellitus), type 2 Qualifiers: Diabetes mellitus chcf insulin use: with long term care pharmacist use Diabetes mellitus complication status: with hyperglycemia Qualified Code(s): E11.65 - Type 2 diabetes mellitus with hyperglycemia; Z79.4 - detention (current) use of insulin (3) Hypertension Qualifiers: Hypertension type: essential hypertension Qualified Code(s): I10 - Essential (primary) hypertension (6) Leukocytosis Qualifiers: Leukocytosis type: unspecified Qualified Code(s): D72.829 - Elevated white blood cell count, unspecified
[2019-01-11] MEDS: Nicotine 7 MG PATCH.TD24 TD SCH (08:44)
[2019-01-11] MEDS: Fluticasone Propionate Nasal 50 MCG/SPRAY BOTTLE NS SCH (08:46)
[2019-01-11] MEDS: Levofloxacin 750 MG/150 ML 750 MG/150 ML BAG IVPB SCH (08:46)
[2019-01-11] MEDS: Furosemide 20 MG TABLET PO SCH (08:47)
[2019-01-11] MEDS: Gabapentin 400 MG CAPSULE PO SCH ×3 (08:47→21:21)
[2019-01-11] MEDS: Sennosides 8.6 MG TABLET PO SCH (08:47)
[2019-01-11] MEDS: Aspirin Enteric Coated 81 MG Tablet PO SCH (08:47)
[2019-01-11] MEDS: metOLazone 5 MG TABLET PO SCH (08:47)
[2019-01-11] MEDS: predniSONE 20 MG TABLET PO SCH (08:47)
[2019-01-11] MEDS: Insulin DETEMIR 100 UNIT/ML X5UNITS SQ SCH (08:53)
[2019-01-11] MEDS: Budesonide/Formoterol 160/4.5 1 PUFF INH IH SCH ×2 (10:54→20:40)
[2019-01-11] MEDS: Tiotropium 18 MCG inhalation IH SCH (10:55)
[2019-01-11] MEDS ORDERED: Insulin DETEMIR 100 UNIT/ML X5UNITS SQ SCH (21:00)
[2019-01-12] MEDS: *HR* OxyCODONE Immed Rel 5 MG TABLET PO PRN ×2 (06:45→10:35)
[2019-01-12] MEDS: *HR* Heparin 5,000 UNIT/ML VIAL SQ SCH ×2 (06:45→15:38)
[2019-01-12] MEDS: Tiotropium 18 MCG inhalation IH SCH (07:52)
[2019-01-12] MEDS: Budesonide/Formoterol 160/4.5 1 PUFF INH IH SCH (07:53)
[2019-01-12] MEDS ORDERED: *HR* Metformin 500 MG TABLET PO SCH (08:39)
[2019-01-12] MEDS ORDERED: Insulin DETEMIR 100 UNIT/ML X5UNITS SQ SCH (09:00)
[2019-01-12] MEDS: Levofloxacin 750 MG/150 ML 750 MG/150 ML BAG IVPB SCH (10:15)
[2019-01-12 10:16] LABS: BUN/Creatinine Ratio 40 (6-26); Blood Urea Nitrogen 44 mg/dL (8-23); Calcium 9.6 mg/dL (8.6-10.3); Carbon Dioxide 30 mEq/L (23-29); Chloride 96 mEq/L (98-107); Glucose 409 mg/dL (70-105); Osmolality,Calculated 302 (280-300); Potassium 4.3 mEq/L (3.5-5.1); Sodium 132 mEq/L (136-145); eGFR For Non-African Americans > 60 (> 60)
[2019-01-12] MEDS: Nicotine 7 MG PATCH.TD24 TD SCH (10:16)
[2019-01-12] MEDS: Gabapentin 400 MG CAPSULE PO SCH ×2 (10:16→15:38)
[2019-01-12] MEDS: metOLazone 5 MG TABLET PO SCH (10:16)
[2019-01-12] MEDS: predniSONE 20 MG TABLET PO SCH (10:17)
[2019-01-12] MEDS: Sennosides 8.6 MG TABLET PO SCH (10:17)
[2019-01-12] MEDS: Furosemide 20 MG TABLET PO SCH (10:17)
--- NOTE | 2019-01-12 10:22 | Discharge Summary ---
<Liya Cifuentes - Last Filed: 01/12/19 15:38> - NOTES TO OUTPATIENT PROVIDER Notes to Outpatient Provider: recommend outpt a1c testing. pt to record TID AC HS blood sugars from dc to PCP appt to review with PCP Date of Encounter: 01/12/19 - Discharge Diagnosis (1) COPD (chronic obstructive pulmonary disease) Status: Chronic Qualifiers: COPD type: chronic bronchitis Chronic bronchitis type: simple Qualified Code(s): J41.0 - Simple chronic bronchitis (2) DM (diabetes mellitus), type 2 Status: Chronic Qualifiers: Diabetes mellitus oil heaterman insulin use: with halfway use Diabetes mellitus complication status: with hyperglycemia Qualified Code(s): E11.65 - Type 2 diabetes mellitus with hyperglycemia; Z79.4 - intermediate teacher (current) use of insulin (3) Hypertension Status: Chronic Qualifiers: Hypertension type: essential hypertension Qualified Code(s): I10 - Essential (primary) hypertension (4) Postoperative pain after spinal surgery Status: Resolved (5) Decreased ambulation status Status: Acute (6) Leukocytosis Status: Resolved Qualifiers: Leukocytosis type: unspecified Qualified Code(s): D72.829 - Elevated white blood cell count, unspecified (7) Obesity (BMI 30.0-34.9) Status: Chronic Hospital course: Mr. Sutherland is a 68 year old male Discharge discussed with: patient, nurse, social work - Time Spent with Patient Total time spent providing and/or coordinating discharge services: Time spent: Greater than 30 minutes (50 min) - Discharge Medications Prescriptions: New Cyclobenzaprine [Flexeril] 10 mg PO TID PRN 3 Days #9 tablet PRN Reason: Spasms Nicotine Patch [Nicoderm] 7 mg TD DAILY #30 patch.td24 OxyCODONE Immed Rel [Roxicodone 5 MG] 5 mg PO Q6HR PRN 3 Days #12 tablet PRN Reason: Severe Pain diazePAM [Valium] 2.5 mg PO Q8H PRN 3 Days #4 tablet PRN Reason: Spasms Continued Albuterol Sulfate [Ventolin Hfa] 2 puff IH Q4H PRN PRN Reason: Shortness Of Breath Aspirin [Lo-Dose Aspirin EC] 81 mg PO DAILY Atorvastatin [Lipitor] 20 mg PO HS Budesonide/Formoterol 160/4.5 [Symbicort 160/4.5] 2 puff IH BIDR Cinnamon Bark [Cinnamon] 500 mg PO DAILY Fluticasone Propionate Nasal [Flonase] 1 spr NS DAILY Furosemide [Lasix] 20 mg PO DAILY Gabapentin 800 mg PO TID Glycopyrrolate/Formoterol Fum [Bevespi Aerosphere Inhaler] 2 puff IH BID Insulin DETEMIR [Levemir Flextouch] 62 unit SQ BID Ipratropium/Albuterol Neb [Duoneb] 3 ml IH Q6HR PRN PRN Reason: Shortness Of Breath Liraglutide [Victoza 2-Mychal] 1.2 mg SQ DAILY Lisinopril 2.5 mg PO DAILY Metformin HCl [Glucophage] 1,000 mg PO BID metOLazone [Zaroxolyn] 5 mg PO DAILY [place]-3/Dha/Epa/Fish Oil [Fish Oil 1,000 mg Softgel] 1 cap PO DAILY Discontinued OxyCODONE Immed Rel [Roxicodone 5 MG] 5 mg PO Q6HR PRN 5 Days #20 tablet PRN Reason: Severe Pain Home Medications: Albuterol Sulfate [Ventolin Hfa] 2 puff IH Q4H PRN 01/05/19 [History] Aspirin [Lo-Dose Aspirin EC] 81 mg PO DAILY 01/05/19 [History] Atorvastatin [Lipitor] 20 mg PO HS 01/05/19 [History] Budesonide/Formoterol 160/4.5 [Symbicort 160/4.5] 2 puff IH BIDR 01/05/19 [History] Cinnamon Bark [Cinnamon] 500 mg PO DAILY 01/05/19 [History] Fluticasone Propionate Nasal [Flonase] 1 spr NS DAILY 01/05/19 [History] Furosemide [Lasix] 20 mg PO DAILY 01/05/19 [History] Gabapentin 800 mg PO TID 01/05/19 [History] Glycopyrrolate/Formoterol Fum [Bevespi Aerosphere Inhaler] 2 puff IH BID 01/05/19 [History] Insulin DETEMIR [Levemir Flextouch] 62 unit SQ BID 01/05/19 [History] Ipratropium/Albuterol Neb [Duoneb] 3 ml IH Q6HR PRN 01/05/19 [History] Liraglutide [Victoza 2-Mychal] 1.2 mg SQ DAILY 01/05/19 [History] Lisinopril 2.5 mg PO DAILY 01/05/19 [History] Metformin HCl [Glucophage] 1,000 mg PO BID 01/05/19 [History] [place]-3/Dha/Epa/Fish Oil [Fish Oil 1,000 mg Softgel] 1 cap PO DAILY 01/05/19 [History] metOLazone [Zaroxolyn] 5 mg PO DAILY 01/05/19 [History] Cyclobenzaprine [Flexeril] 10 mg PO TID PRN 3 Days #9 tablet 01/10/19 [Rx] Nicotine Patch [Nicoderm] 7 mg TD DAILY #30 patch.td24 01/10/19 [Rx] OxyCODONE Immed Rel [Roxicodone 5 MG] 5 mg PO Q6HR PRN 3 Days #12 tablet 01/10/19 [Rx] diazePAM [Valium] 2.5 mg PO Q8H PRN 3 Days #4 tablet 01/10/19 [Rx] Allergies/Adverse Reactions: Allergy/AdvReac Type Severity Reaction Status Date / Time sitagliptin [From Sepuvia] AdvReac Gastrointestinal Verified 01/07/19 20:25 Upset Date of admission: 01/09/19 16:11 Primary care physician: Emigdio Nolan MD Consults: 01/07/19 04:35 Consult to Physician [CONS] Stat Consulting Provider: Jm Macedo Jr Reason for Consult: post op laminectomy pain, decreased ambulation status Time Notified: 04:35 Call Completed: Yes 01/07/19 06:59 Consult to Nutrition [CONS] Routine Comment: Consulting Provider: NUTRITION Reason for Dietary Consult: Other 01/07/19 09:00 Consult to Occupational Therapy [CONS] Routine Comment: Evaluate, develop and implement POC Reason for Consult: Eval and treat Does patient have active BEDREST order?: No Is patient medically & hemodynamically stable?: Yes Consult to Physical Therapy [CONS] Routine Comment: Evaluate, develop and implement POC Reason for Consult: Eval and treat Does patient have active BEDREST order?: No Is patient medically & hemodynamically stable?: Yes Consult to Global President [CONS] Routine Reason for SW Consult: Discharge planning, readmission 01/07/19, discharged 01/06/19, unable to ambulate now. 01/07/19 10:03 Consult to Physical Therapy [CONS] Routine Comment: Evaluate, develop and implement POC Reason for Consult: dispostion Does patient have active BEDREST order?: No Is patient medically & hemodynamically stable?: Yes Patient assessed for mobility or mobilized this visit?: Yes OT [Consult to Occupational Therapy] [CONS] Routine Comment: Evaluate, develop and implement POC Reason for Consult: disposition Does patient have active BEDREST order?: No Is patient medically & hemodynamically stable?: Yes Patient assessed for mobility or mobilized this visit?: Yes - Constitutional Vitals: Temp Pulse Resp BP Pulse Ox 97.6 F 70 18 131/69 96 01/12/19 15:10 01/12/19 15:10 01/12/19 15:10 01/12/19 15:10 01/12/19 15:10 - Patient Status Disposition: Home, Self-Care Condition: Good - [place] [facility] [place] - Jm Macedo Jr, MD [Partnered Physician] - Additional Instructions: Please follow up with Dr. Macedo. Please follow up with primary care physician within 3-5 days and take all medication as prescribed. Physical therapy is recommended outpatient therapy which can be set up through primary care physician. your blood sugars were high with steroids here and reduced insulin dosing (due to decreased intake on admission). CHECK BLOOD SUGAR BEFORE EACH MEAL AND AT BEDTIME. RECORD DATE/TIME AND READING AND TAKE TO YOUR FAMILY DOCTOR APPT TO REVIEW CONT YOUR HOME DIABETES MEDS ANDINSULIN DOSING. You are NOT being prescribed steroids on discharge. Report any blood sugars over 300 (you told us you run at 250 at home regularly) to your primary care doctor immediately - Diet and Activity Diet: diabetic diet - Attending Attestation I examined this patient and my medical decision-making was reviewed with the Resident Physician Dr Hardwick. I agree with the documented findings, disposition and treatment plan as described except to the extent set forth below. Mr Sutherland was admitted with post operative pain, copde. awake, very very eager for dc to home. re eval by pt and ok for outpt therapy now instead of snf. he has no cough, sob or wheezing. is feeling great on room air. discussed his elevated glucose. he has been drinking ensure and feels elevating glucose. he also has been on steroids. he notes his blood sugars to be 200s-250 at home but not usually higher. He is feeling fine without any sxs of hyperglycemia. no polyuria, polydipsia or polyphagia. He wants to dc to home, will resume his home insulin and oral meds held here and stop ensure. also discussed we will stop steroids as copde resolved. gen- awake, alert, appears stated age, cv- reg rate and rhythm, normal s1,s2, no le edema lungs- ctabl, no wheezing, rhonchi or crackles, normal resp effort on room air abd- soft, nt, nd, + bs skin- spine dressing clean, dry, intact neuro- AAOx3 Post operative Back pain- s/p L3-L5 laminectomy 01/05 -appreciate ortho input, appears to be standard post op pain -rec is for muscle relaxer, valium, PO pain meds , short term rx x3 days given, fu with dr macedo and pcp -outpt pt/ot as per pt daily note today Leukocytosis, likely combination reactive from surgery + COPDE, resolved Wound not infected as d/w Ortho -treatment as below COPDE, reoslved confirmed with pcp is to wear continuous O2 NC 2.5 L daily at home, which pt does not do -resume home med regimen, home o2 nc -levaquin course 01/12, stop steroids as lung exam has been normal x2 days and elevating glucose far above goal chronic HFpEF, appears euvolemic - home med regimen including diuretics upon dc HTN stable- cont home meds DM with hyperglycemia multifactorial: insulin lower than home dose as he wasn't eating on admit, then increased daily to assure no hypoglycemia, also held home oral agent and insulin not available here, he was drinking ensure, and on steroids He is noting home bs to be 200s at home, and is asx given he is insistent to dc and clinically back to baseline will dc to home with home regimen in place and nO steroids, NO ensure he will record tidac hs glucose checks and take to pcp appt, rec for outpt a1c bs on day of dc 302, 278, 313, bmp without anion gap time spent on dc 50 min further diagnoses and plan as noted by resident <Ted Hardwick - Last Filed: 01/12/19 17:52> - NOTES TO OUTPATIENT PROVIDER Notes to Outpatient Provider: Patient admitted for intractable pain following recent laminectomy. Also suspected COPD component and mild exacerbation. Currently tolerating pain well and we sent on 3 days worth of pain medications. He should follow up with outpatient therapy per PT/OT recommendations as well as Dr. Macedo. Will not be sent home on steroids due to hyperglycemia during admission. Date of Encounter: 01/12/19 Time of Encounter: 09:45 - Discharge Diagnosis (1) COPD (chronic obstructive pulmonary disease) Priority: Primary Status: Chronic Qualifiers: COPD type: chronic bronchitis Chronic bronchitis type: simple Qualified Code(s): J41.0 - Simple chronic bronchitis (2) DM (diabetes mellitus), type 2 Priority: Secondary Status: Chronic Qualifiers: Diabetes mellitus oil heaterman insulin use: with halfway use Diabetes mellitus complication status: with hyperglycemia Qualified Code(s): E11.65 - Type 2 diabetes mellitus with hyperglycemia; Z79.4 - intermediate teacher (current) use of insulin (3) Hypertension Priority: Secondary Status: Chronic Qualifiers: Hypertension type: essential hypertension Qualified Code(s): I10 - Essential (primary) hypertension (4) Postoperative pain after spinal surgery Priority: Primary Status: Resolved (5) Decreased ambulation status Priority: Secondary Status: Acute (6) Leukocytosis Priority: Secondary Status: Resolved Qualifiers: Leukocytosis type: unspecified Qualified Code(s): D72.829 - Elevated white blood cell count, unspecified (7) Obesity (BMI 30.0-34.9) Priority: Secondary Status: Chronic Hospital course: Mr. Sutherland is a 68 year old male with past medical history of COPD, diabetes, hyperlipidemia, hypertension, laminectomy on 01/05/19 of hospital with worsening back pain. He was notably discharged from this facility on 01/06/19 with a prescription for opioid pain medications and he is unsure if he refilled the prescription. He denies any symptoms of loss of bowel or bladder. Orthopedic surgery was consulted during this admission and recommended supportive care. Upon presentation to the emergency room it was noted fevers requiring 3 L of oxygen with saturation of 93%. Vitals otherwise within normal limits. Laboratory results showed a leukocytosis of 17.3, sodium 135, BUN/creatinine of 49/1.15 which is at baseline. He was admitted to the hospital for further evaluation of suspected COPD exacerbation as well as worsening back pain following surgery. During course possible stay, patient was treated with steroids and Levaquin for a 3 day course for COPD exacerbation. He also received supportive care including opioids, Valium, muscle relaxers with adequate control of his back pain. He was evaluated by PT/OT who did recommend SNF/ECF but was then reevaluated and is currently recommending outpatient therapy. Social work was consulted and spoke with the patient. He stated that he is only going home he has no concerns with going home at that time. Outpatient physical therapy order will be deferred to primary care physician. Patient later admitted that he does have home oxygen and he needs it. Vitals and laboratory results have return to baseline levels. He will be discharged home in stable medical condition with prescriptions for Flexeril, oxycodone, Valium and was instructed to follow up with his primary care physician as well as orthopedic surgery. He was also instructed to quit smoking and be given a prescription for nicotine patch. All questions were answered. Discharge discussed with: patient, nurse, social work - Time Spent with Patient Total time spent providing and/or coordinating discharge services: Date of admission: 01/09/19 16:11 Primary care physician: Emigdio Nolan MD Consults: 01/07/19 04:35 Consult to Physician [CONS] Stat Consulting Provider: Jm Macedo Jr Reason for Consult: post op laminectomy pain, decreased ambulation status Time Notified: 04:35 Call Completed: Yes 01/07/19 06:59 Consult to Nutrition [CONS] Routine Comment: Consulting Provider: NUTRITION Reason for Dietary Consult: Other 01/07/19 09:00 Consult to Occupational Therapy [CONS] Routine Comment: Evaluate, develop and implement POC Reason for Consult: Eval and treat Does patient have active BEDREST order?: No Is patient medically & hemodynamically stable?: Yes Consult to Physical Therapy [CONS] Routine Comment: Evaluate, develop and implement POC Reason for Consult: Eval and treat Does patient have active BEDREST order?: No Is patient medically & hemodynamically stable?: Yes Consult to Global President [CONS] Routine Reason for SW Consult: Discharge planning, readmission 01/07/19, discharged 01/06/19, unable to ambulate now. 01/07/19 10:03 Consult to Physical Therapy [CONS] Routine Comment: Evaluate, develop and implement POC Reason for Consult: dispostion Does patient have active BEDREST order?: No Is patient medically & hemodynamically stable?: Yes Patient assessed for mobility or mobilized this visit?: Yes OT [Consult to Occupational Therapy] [CONS] Routine Comment: Evaluate, develop and implement POC Reason for Consult: disposition Does patient have active BEDREST order?: No Is patient medically & hemodynamically stable?: Yes Patient assessed for mobility or mobilized this visit?: Yes Discharging clinician: Ted Hardwick Anticipated date of discharge: 01/12/19 - Constitutional Vitals: Temp Pulse Resp BP Pulse Ox 98.4 F 83 18 129/68 94 01/12/19 09:52 01/12/19 09:52 01/12/19 09:52 01/12/19 09:52 01/12/19 09:52 Exam: Gen.: Vitals noted. No acute distress. AAOx3, resting comfortably in bed. Sitting up HEENT: PERRL/EOMI, oropharynx clear, Normocephalic, atraumatic, MMM Cardiac: RRR, no murmur, +S1/S2, No BLE edema, venous stasis Pulmonary: CTA bilaterally, no wheezes, rales or rhonchi, equal chest expansion, unlabored breathing Back: Nontender throughout. Skin: warm and dry, no visible lesions. MSK: ROM intact, no joint swelling noted, gait no assessed while in bed. Non tender calf or clubbing Neuro: A&Ox3, moves all extremities, no focal deficits, sensation intact in distal extremities. Psych: Appropriate mood and behavior, AOx3 - Patient Status Functional capacity at discharge: uses cane/walker Overall status at discharge: patient is progressing back to baseline - Diet and Activity Activity: increase activity as tolerated, return to work once cleared by your PCP/specialist Diet: advance to your usual diet, diabetic diet
[2019-01-12] MEDS: Aspirin Enteric Coated 81 MG Tablet PO SCH (10:34)
[2019-01-12] MEDS: Fluticasone Propionate Nasal 50 MCG/SPRAY BOTTLE NS SCH (10:35)
[2019-01-12] MEDS ORDERED: Insulin LISPRO 300 UNITS/3 ML VIAL SQ SCH ×2 (11:30→21:00)
[2019-01-12 15:12] VITALS: BP 131/69
== END 2019-01-12 16:40 | disposition home or self-care (01) | DRG 948 ==
LOC: 2ANU 03:14 → 3NENU 03:14 → EMEROOARM 03:14 → SUATTDRO 04:56 → 3NENU 06:32
PROVIDERS: ADMIT Pediatrics; ATTEND Internal Medicine

== ENCOUNTER 2019-07-08 06:18 | Inpatient (IN) ==
[2019-07-08] MEDS ORDERED: Albuterol 2.5 MG/3 ML NEBULIZER IH PRN (06:39)
[2019-07-08] MEDS ORDERED: CeFAZolin Syr 2,000MG/20 ML 2,000 MG/20 ML SYRINGE IVPB ONE (06:39)
[2019-07-08] MEDS ORDERED: Ringers Solution, Lactated 1,000 ML IVC SCH ×2 (06:45→18:51)
[2019-07-08] MEDS ORDERED: Lidocaine -MPF 4% 5 ML AMPUL ONE (07:06)
[2019-07-08] MEDS ORDERED: Propofol 500 MG/50 ML INFUS..BTL ONE ×5 (07:07→14:38)
[2019-07-08] MEDS ORDERED: *HR* Remifentanil 1 MG VIAL IVP ONE ×3 (07:14→13:50)
[2019-07-08] MEDS ORDERED: *HR* Propofol 200 MG/20 ML VIAL IVP ONE ×2 (07:18→14:36)
[2019-07-08] MEDS ORDERED: Dexamethasone 4 MG/ML VIAL ONE (07:18)
[2019-07-08] MEDS ORDERED: *HR* Rocuronium Bromide 50 MG/5 ML VIAL ONE (07:18)
[2019-07-08] MEDS ORDERED: *HR* Succinylcholine 200 MG/10 ML VIAL IVP ONE (07:18)
[2019-07-08] MEDS ORDERED: *HR* Midazolam HCl 2 MG/2 ML VIAL ONE (07:18)
[2019-07-08] MEDS ORDERED: Ondansetron 4 MG/2 ML VIAL ONE (07:18)
[2019-07-08] MEDS ORDERED: *HR* FentaNYL (PF) 100 MCG/2 ML VIAL ONE (07:18)
[2019-07-08] MEDS ORDERED: Lidocaine -MPF 2% 2 ML VIAL ONE ×2 (07:22→10:17)
[2019-07-08] MEDS ORDERED: Ondansetron 4 MG/2 ML VIAL IVP ONE (07:31)
[2019-07-08] MEDS ORDERED: *HR* HYDROmorphone (PF) 1 MG/ML SYRINGE IVP PRN (07:31)
[2019-07-08] MEDS ORDERED: *HR* OxyCODONE Immed Rel 5 MG TABLET PO PRN (07:31)
[2019-07-08] MEDS ORDERED: Acetaminophen IV 1,000 MG/100 ML INFUS..BTL ONE (07:42)
[2019-07-08] MEDS ORDERED: *HR* Vasopressin 20 UNIT/ML VIAL ONE (07:43)
[2019-07-08] MEDS ORDERED: Bacitracin 50,000 UNIT, Polymyxin B Sulfate 500,000 UNIT, Sodium Chloride IRRigation 1,... IR ONE (10:30)
[2019-07-08] MEDS ORDERED: *HR* PHENYLEPHRINE 1,000 MCG/10 ML SYRINGE IVP ONE (11:17)
[2019-07-08] MEDS ORDERED: EPHEDrine 50 MG/ML VIAL ONE (11:35)
[2019-07-08] MEDS ORDERED: *HR* HYDROMORPHONE 2 MG/ML VIAL ONE (12:33)
[2019-07-08] MEDS ORDERED: Ondansetron 4 MG/2 ML VIAL IVP PRN (18:51)
[2019-07-08] MEDS ORDERED: Fluticasone Propionate Nasal 50 MCG/SPRAY BOTTLE NS PRN (18:51)
[2019-07-08] MEDS ORDERED: Naloxone 0.4 MG/ML INJ IVP PRN (18:51)
[2019-07-08] MEDS ORDERED: Acetaminophen 325 MG TABLET PO PRN (18:51)
[2019-07-08] MEDS: *HR* OxyCODONE Immed Rel 5 MG TABLET PO PRN (20:10)
[2019-07-08] MEDS: *HR* Metformin 500 MG TABLET PO SCH (20:12)
[2019-07-08] MEDS: Budesonide/Formoterol 160/4.5 1 PUFF INH IH SCH (20:20)
[2019-07-08] MEDS ORDERED: NON-FORMULARY MEDICATION 1 EACH EACH (Cinnamon Bark [Cinnamon] 500 MG) PO SCH (21:00)
[2019-07-08] MEDS ORDERED: Ipratropium/Albuterol Neb 3 ML IH PRN (22:00)
[2019-07-09] MEDS: *HR* OxyCODONE Immed Rel 5 MG TABLET PO PRN ×5 (00:16→20:08)
[2019-07-09] MEDS: *HR* HYDROcodone/Acet 5/325 mg TABLET PO PRN (03:38)
[2019-07-09] MEDS: Budesonide/Formoterol 160/4.5 1 PUFF INH IH SCH ×3 (07:40→19:32)
[2019-07-09] MEDS: metOLazone 5 MG TABLET PO SCH (08:49)
[2019-07-09] MEDS: *HR* Metformin 500 MG TABLET PO SCH ×3 (08:49→18:45)
[2019-07-09] MEDS: Aspirin Enteric Coated 81 MG Tablet PO SCH (08:50)
[2019-07-09] MEDS: Furosemide 20 MG TABLET PO SCH (08:50)
[2019-07-09] MEDS: (Liraglutide [Victoza 2-Pak] 1.2 MG) SQ SCH (08:50)
[2019-07-09] MEDS ORDERED: NON-FORMULARY MEDICATION 1 EACH EACH (Omega-3/Dha/Epa/Fish Oil [Fish Oil 1,000 Mg Softgel] PO SCH (09:00)
[2019-07-09] MEDS: diazePAM 5 MG TABLET PO PRN ×2 (11:57→18:45)
[2019-07-09] MEDS: Gabapentin 400 MG CAPSULE PO SCH ×2 (12:22→20:08)
[2019-07-09] MEDS: Insulin LISPRO 300 UNITS/3 ML VIAL SQ SCH (20:15)
[2019-07-10] MEDS: Budesonide/Formoterol 160/4.5 1 PUFF INH IH SCH ×2 (07:14→20:39)
[2019-07-10] MEDS: *HR* Metformin 500 MG TABLET PO SCH ×2 (07:43→17:29)
[2019-07-10] MEDS: *HR* OxyCODONE Immed Rel 5 MG TABLET PO PRN ×3 (07:43→22:49)
[2019-07-10] MEDS: metOLazone 5 MG TABLET PO SCH (07:43)
[2019-07-10] MEDS: Insulin LISPRO 300 UNITS/3 ML VIAL SQ SCH ×4 (07:44→20:48)
[2019-07-10] MEDS: Gabapentin 400 MG CAPSULE PO SCH ×3 (07:44→20:48)
[2019-07-10] MEDS: Aspirin Enteric Coated 81 MG Tablet PO SCH (07:44)
[2019-07-10] MEDS: Furosemide 20 MG TABLET PO SCH (07:44)
[2019-07-10] MEDS: (Liraglutide [Victoza 2-Pak] 1.2 MG) SQ SCH (15:28)
[2019-07-11] MEDS: *HR* HYDROcodone/Acet 5/325 mg TABLET PO PRN (00:32)
[2019-07-11] MEDS: diazePAM 5 MG TABLET PO PRN (05:48)
[2019-07-11] MEDS: Insulin LISPRO 300 UNITS/3 ML VIAL SQ SCH ×2 (07:18→12:01)
[2019-07-11] MEDS: Gabapentin 400 MG CAPSULE PO SCH (07:19)
[2019-07-11] MEDS: metOLazone 5 MG TABLET PO SCH (07:19)
[2019-07-11] MEDS: *HR* Metformin 500 MG TABLET PO SCH (07:19)
[2019-07-11] MEDS: Furosemide 20 MG TABLET PO SCH (07:19)
[2019-07-11] MEDS: Aspirin Enteric Coated 81 MG Tablet PO SCH (07:19)
[2019-07-11] MEDS: Budesonide/Formoterol 160/4.5 1 PUFF INH IH SCH (07:52)
[2019-07-11] MEDS: *HR* OxyCODONE Immed Rel 5 MG TABLET PO PRN ×2 (09:15→15:33)
[2019-07-11] MEDS: (Liraglutide [Victoza 2-Pak] 1.2 MG) SQ SCH (09:19)
[2019-07-11 11:16] VITALS: BP 161/73
== END 2019-07-11 16:54 | disposition home or self-care (01) | DRG 472 ==
LOC: SAMDAY 06:18 → 3NENU 18:30
PROVIDERS: ADMIT Orthopaedic Surgery Orthopaedic Surgery of the Spine; ATTEND Orthopaedic Surgery Orthopaedic Surgery of the Spine
PROC: SPICORP (2019-07-08 07:45)

== ENCOUNTER 2019-07-13 | Inpatient (IN) ==
[2019-07-13] MEDS ORDERED: Isovue-370 500 ML BOTTLE IVP ONE (00:13)
[2019-07-13 00:21] LABS: ABG Base Excess 5 mEq/L (-2 to 3); ABG HCO3 34 mEq/L (21-27); ABG Oxygen Saturation 100 % (95-98); ABG PCO2 70 mmHg (35-45); ABG PO2 205 mmHg (85-104); ABG TCO2 36 mEq/L (20-26)
[2019-07-13 00:41] LABS: Basophils % 0.2 %; Hematocrit 41.3 % (37.5-50.1); Immature Granulocytes % 0.4 % (0-4); Lymphocytes # 0.7 K/mcL (0.6-4.6); Lymphocytes % 3.9 %; Mean Corpuscular HGB Conc 33.9 g/dL (31.6-35.5); Mean Corpuscular Hemoglobin 30.6 pg (28.0-33.3); Mean Corpuscular Volume 90.4 fL (83.0-100.0); Mean Platelet Volume 9.6 fL (9.4-12.4); Monocytes # 1.5 K/mcL (0.0-1.3); Monocytes % 8.2 %; Neutrophils # 15.6 K/mcL (1.6-8.9); Platelet Count 326 K/mcL (140-400); Red Blood Count 4.57 M/mcL (4.19-5.50); Red Cell Distribution Width 12.9 % (11.5-14.5); Segmented Neutrophils % 87.3 %; White Blood Count 17.9 K/mcL (4.3-11.1)
[2019-07-13 00:49] LABS: INR 1.2; Prothrombin Time 13.1 Seconds (9.4-12.1)
[2019-07-13 01:30] LABS: Albumin 3.6 g/dL (3.5-5.7); Bilirubin,Direct 0.2 mg/dL (0.0-0.2); Bilirubin,Indirect 0.5 mg/dL (0.0-1.0); Bilirubin,Total 0.7 mg/dL (0.3-1.0); Calcium 10.1 mg/dL (8.6-10.3); Globulin 3.6 g/dL (2.4-3.5); Magnesium 2.7 mg/dL (1.6-2.6); Phosphorous 5.8 mg/dL (2.7-4.5); Potassium 4.6 mEq/L (3.5-5.1); Total Protein 7.2 g/dL (6.4-8.9); Troponin I 0.07 ng/mL (< 0.04)
[2019-07-13] MEDS: 0.9 % Sodium Chloride 1,000 ML IVC SCH ×2 (01:54→02:51)
[2019-07-13 02:01] LABS: Bilirubin,Urine Negative (Negative); Blood,Urine Moderate (Negative); Clarity,Urine Clear (Clear); Color,Urine Yellow (Yellow); Glucose,Urine (UA) >=1000 mg/dL (Normal); Ketones,Urine Negative (Negative); Leukocyte Esterase,Urine Negative (Negative); Nitrite,Urine Negative (Negative); Protein,Urine 30 mg/dL (Neg-Trace); Specific Gravity,Urine 1.022 (1.010-1.025); Urobilinogen,Urine Normal (Normal)
[2019-07-13 02:04] LABS: Bacteria,Urine None Seen per hpf (None-Few); RBC,Urine 15-30 per hpf (0-3); Squamous Epithelial Cell,Urine Many per lpf (None-Few); WBC,Urine 0-3 per hpf (0-3)
[2019-07-13 02:19] LABS: Hyaline Casts,Urine Few per lpf (None-Few)
[2019-07-13] MEDS ORDERED: *HR* LORazepam 2 MG/ML VIAL IVP ONE ×2 (02:42→03:03)
[2019-07-13] MEDS ORDERED: *HR* Dextrose 50 % in Water (Syg) 50 ML SYRINGE IVP PRN ×6 (02:56→10:59)
[2019-07-13] MEDS ORDERED: Aspirin 325 MG TABLET PO ONE (02:57)
[2019-07-13] MEDS ORDERED: *HR* Heparin 5,000 UNIT/ML VIAL IVP ONE (02:58)
[2019-07-13] MEDS ORDERED: *HR* Heparin 5,000 UNIT/ML VIAL IVP PRN ×2 (02:58)
[2019-07-13] MEDS ORDERED: Insulin Human Regular 100 UNIT in 0.9 % Sodium Chloride 100 ML IVC SCH ×2 (03:00→05:30)
[2019-07-13] MEDS ORDERED: Heparin 25,000 UNIT/250 ML D5W 25,000 UNIT/250 ML IV.SOLN IVC SCH (03:00)
[2019-07-13] MEDS ORDERED: 0.9 % Sodium Chloride 1,000 ML IVC ONE (05:04)
[2019-07-13] MEDS ORDERED: Naloxone 0.4 MG/ML INJ IVP PRN (05:04)
[2019-07-13] MEDS ORDERED: Insulin Regular, Human 100 UNIT/ML IV PRN ×3 (05:04→08:27)
[2019-07-13] MEDS ORDERED: D5% in 0.45% NACL 1,000 ML IVC PRN ×2 (05:16→08:27)
[2019-07-13] MEDS ORDERED: D5% in 0.45% NACL w KCl 20 MEQ/1,000 ML MLS IVC PRN ×2 (05:16→08:27)
[2019-07-13 05:23] LABS: VBG HCO3 31 mEq/L (21-27); VBG PCO2 61 mmHg (41-51); VBG PH 7.32 pH Units (7.32-7.42); VBG PO2 129 mmHg (25-50)
[2019-07-13 05:32] LABS: Basophils % 0.2 %; Hematocrit 41.3 % (37.5-50.1); Hemoglobin 13.7 g/dL (12.9-16.9); Immature Granulocytes % 0.5 % (0-4); Lymphocytes # 0.6 K/mcL (0.6-4.6); Lymphocytes % 3.7 %; Mean Corpuscular HGB Conc 33.2 g/dL (31.6-35.5); Mean Corpuscular Hemoglobin 30.2 pg (28.0-33.3); Mean Platelet Volume 9.8 fL (9.4-12.4); Monocytes % 5.7 %; Neutrophils # 15.1 K/mcL (1.6-8.9); Platelet Count 308 K/mcL (140-400); Red Blood Count 4.54 M/mcL (4.19-5.50); Red Cell Distribution Width 12.9 % (11.5-14.5); Segmented Neutrophils % 89.9 %; White Blood Count 16.8 K/mcL (4.3-11.1)
[2019-07-13] MEDS: Dexmedetomidine HCl 400 MCG/100 ML MLS IVC SCH ×2 (05:40→11:30)
[2019-07-13 05:41] LABS: BUN/Creatinine Ratio 59 (6-26); Blood Urea Nitrogen 82 mg/dL (8-23); Calcium 9.5 mg/dL (8.6-10.3); Carbon Dioxide 30 mEq/L (23-29); Chloride 98 mEq/L (98-107); Glucose 462 mg/dL (70-105); Osmolality,Calculated 331 (280-300); Potassium 4.6 mEq/L (3.5-5.1); Sodium 138 mEq/L (136-145); eGFR For African Americans > 60 (> 60); eGFR For Non-African Americans 52 (> 60)
[2019-07-13] MEDS ORDERED: Vancomycin (wt based) 1,000 MG VIAL IVPB SCH (06:00)
[2019-07-13 06:13] LABS: Thyroid Stimulating Hormone < 0.010 mcIU/mL (0.340-5.600)
[2019-07-13] MEDS ORDERED: Artificial Tears SOLN 15 ML BOTTLE BOTH EYES PRN (06:25)
[2019-07-13 06:27] LABS: ABG Base Excess 4 mEq/L (-2 to 3); ABG HCO3 35 mEq/L (21-27); ABG Oxygen Saturation 86 % (95-98); ABG PCO2 87 mmHg (35-45); ABG PH 7.22 pH Units (7.32-7.45); ABG PO2 66 mmHg (85-104); ABG TCO2 38 mEq/L (20-26)
[2019-07-13] MEDS ORDERED: FentaNYL (PF) 1,000 MCG in 0.9 % Sodium Chloride 80 ML IVC SCH (06:30)
[2019-07-13] MEDS ORDERED: 0.9 % Sodium Chloride 500 ML ONE (06:56)
[2019-07-13] MEDS ORDERED: Norepinephrine 4 MG in 0.9 % Sodium Chloride 250 ML IVC SCH (07:15)
[2019-07-13 07:32] LABS: ABG Base Excess -2 mEq/L (-2 to 3); ABG HCO3 30 mEq/L (21-27); ABG Oxygen Saturation 70 % (95-98); ABG PCO2 95 mmHg (35-45); ABG PH 7.11 pH Units (7.32-7.45); ABG PO2 51 mmHg (85-104); ABG TCO2 33 mEq/L (20-26); Blood Gas Modality VC; Blood Gas VT 500 cc
[2019-07-13] MEDS ORDERED: Vasopressin 40 UNIT in D5% in Water 100 ML IVC SCH (07:45)
[2019-07-13] MEDS ORDERED: Furosemide 40 MG/4 ML VIAL ONE (07:53)
[2019-07-13] MEDS ORDERED: Furosemide 40 MG/4 ML VIAL IVP ONE (07:54)
[2019-07-13] MEDS ORDERED: Artificial Tears SOLN 15 ML BOTTLE BOTH EYES SCH (08:00)
[2019-07-13] MEDS ORDERED: MetroNIDAZOLE 500 MG/100 ML 500 MG/100 ML BAG IVPB SCH (08:00)
[2019-07-13] MEDS ORDERED: Cefepime HCl 2,000 MG in Water for inj. (sterile) 20 ML IVP SCH ×2 (08:00→18:00)
[2019-07-13 08:18] LABS: Basophils % 0.2 %; Hematocrit 43.7 % (37.5-50.1); Hemoglobin 14.2 g/dL (12.9-16.9); Immature Granulocytes % 0.5 % (0-4); Lymphocytes # 0.4 K/mcL (0.6-4.6); Lymphocytes % 6.6 %; Mean Corpuscular HGB Conc 32.5 g/dL (31.6-35.5); Mean Corpuscular Hemoglobin 30.5 pg (28.0-33.3); Mean Corpuscular Volume 93.8 fL (83.0-100.0); Mean Platelet Volume 9.5 fL (9.4-12.4); Monocytes # 0.1 K/mcL (0.0-1.3); Monocytes % 1.6 %; Neutrophils # 5.8 K/mcL (1.6-8.9); Platelet Count 338 K/mcL (140-400); Red Blood Count 4.66 M/mcL (4.19-5.50); Segmented Neutrophils % 91.1 %
[2019-07-13] MEDS ORDERED: D5% in Water 1,000 ML IVC PRN ×2 (08:21→10:59)
[2019-07-13] MEDS ORDERED: Dextrose Gel 15 GM/37.5 ML TUBE PO PRN ×4 (08:21→10:59)
[2019-07-13 08:22] LABS: White Blood Count 6.4 K/mcL (4.3-11.1)
[2019-07-13 08:24] LABS: INR 1.1; Prothrombin Time 12.7 Seconds (9.4-12.1)
[2019-07-13] MEDS ORDERED: 0.45 % Sodium Chloride w/KCl 20 MEQ/1,000 ML MLS IVC SCH (08:30)
[2019-07-13] MEDS ORDERED: 0.9 % Sodium Chloride 1,000 ML IVC SCH (08:30)
[2019-07-13 08:37] LABS: Calcium 9.3 mg/dL (8.6-10.3); Magnesium 2.6 mg/dL (1.6-2.6); Phosphorous 5.9 mg/dL (2.7-4.5); Potassium 4.3 mEq/L (3.5-5.1)
[2019-07-13] MEDS ORDERED: Perflutren Lipid Microsphere 1.3 ML in 0.9 % Sodium Chloride 8.7 ML IVP ONE (08:50)
[2019-07-13] MEDS ORDERED: Chlorhexidine Rinse 15 ML MOUTHWASH MM SCH (09:00)
[2019-07-13] MEDS ORDERED: Ringers Solution, Lactated 1,000 ML ONE (09:21)
[2019-07-13] MEDS ORDERED: 0.9 % Sodium Chloride 250 ML ONE (09:28)
[2019-07-13] MEDS ORDERED: *HR* Phenylephrine 10 MG/ML VIAL ONE (09:28)
[2019-07-13] MEDS ORDERED: Hydrocortisone Sodium Succ 100 MG/2 ML VIAL IVP STA (09:29)
[2019-07-13] MEDS ORDERED: Esmolol 2.5 GM/250 ML MLS IVC SCH (09:30)
[2019-07-13] MEDS ORDERED: Phenylephrine 20 MG in 0.9 % Sodium Chloride 250 ML IVC SCH (09:30)
[2019-07-13] MEDS ORDERED: Norepinephrine 8 MG in 0.9 % Sodium Chloride 250 ML IVC SCH (09:30)
[2019-07-13] MEDS ORDERED: Sodium Bicarbonate 50 MEQ/50 ML VIAL IVP ONE (09:43)
[2019-07-13 09:47] LABS: ABG Base Excess -1 mEq/L (-2 to 3); ABG HCO3 30 mEq/L (21-27); ABG Oxygen Saturation 61 % (95-98); ABG PCO2 76 mmHg (35-45); ABG PO2 40 mmHg (85-104); ABG TCO2 32 mEq/L (20-26); Blood Gas Modality VC; Blood Gas VT 500 cc
[2019-07-13] MEDS ORDERED: Phenylephrine 10 MG in 0.9 % Sodium Chloride 250 ML IVC ONE (09:56)
[2019-07-13] MEDS: 0.45 % Sodium Chloride w/KCl 20 MEQ/1,000 ML MLS IVC SCH ×2 (10:27→10:28)
[2019-07-13 11:16] LABS: ABG Base Excess 2 mEq/L (-2 to 3); ABG HCO3 31 mEq/L (21-27); ABG Oxygen Saturation 75 % (95-98); ABG PCO2 65 mmHg (35-45); ABG PH 7.28 pH Units (7.32-7.45); ABG PO2 47 mmHg (85-104); ABG TCO2 33 mEq/L (20-26); Blood Gas Modality VC; Blood Gas VT 550 cc
[2019-07-13] MEDS ORDERED: Norepinephrine 16 MG in 0.9 % Sodium Chloride 500 ML IVC SCH (11:30)
[2019-07-13] MEDS ORDERED: Phenylephrine 75 MG in 0.9 % Sodium Chloride 250 ML IVC SCH (11:30)
[2019-07-13] MEDS ORDERED: Insulin LISPRO 300 UNITS/3 ML VIAL SQ SCH ×2 (12:00)
[2019-07-13 12:11] VITALS: BP 70/37
[2019-07-13] MEDS ORDERED: Aminoglycoside Consult 1 EACH MC ONE (12:34)
[2019-07-13] MEDS ORDERED: *HR* Etomidate 20 MG/10 ML AMPUL IVP ONE (12:34)
[2019-07-13] MEDS ORDERED: Hydrocortisone Sodium Succ 100 MG/2 ML VIAL IVP SCH (16:00)
[2019-07-13] MEDS ORDERED: Famotidine 20 MG/2 ML VIAL IVP SCH (18:00)
== END 2019-07-13 12:35 | disposition short-term general hospital (02) | DRG 862 ==
LOC: ICNU → EMEROOARM → ICNU 04:16
PROVIDERS: ADMIT Family Medicine; ATTEND Family Medicine